=== PATIENT | female | born 1965 | race Caucasian/White ===

== ENCOUNTER 2023-08-30 21:23 | Outpatient (REF) | payer BC, SELFPAY ==
[2023-09-02 13:08] LABS: Age Gdln ACOG Testing Note (.); HPV Aptima Negative (Negative); IGP, Aptima HPV, rfx 16/18,45 Note (.)
== END 2023-08-30 21:24 | disposition home or self-care (01) ==
LOC: LAB 21:23
PROVIDERS: PCP Internal Medicine; Visit Provider Obstetrics & Gynecology
DX: Z01.419 Encounter for gynecological examination (general) (routine) without abnormal findings (principal)
CPT/HCPCS: 87624; G0145

== ENCOUNTER 2024-09-04 22:00 | Outpatient (REF) | payer BC, SELFPAY ==
--- OUTSIDE RECORDS SUMMARY | 2024-09-04 22:05 | XMS_ITS | CCD ---
Author Organization [facility] Care Team Providers Care Senior Solutions Architect Name Role Phone BAGGOTT, JUAN LUIS QUINONEZ Unavailable Unavailable BAGGOTT, JUAN LUIS QUINONEZ Unavailable Unavailable BAGGOTT, JUAN LUIS QUINONEZ Unavailable Unavailable BAGGOTT, JUAN LUIS QUINONEZ Unavailable Unavailable BAGGOTT, JUAN LUIS QUINONEZ Unavailable Unavailable BAGGOTT, JUAN LUIS QUINONEZ Unavailable Unavailable BAGGOTT, JUAN LUIS QUINONEZ Unavailable Unavailable BAGGOTT, JUAN LUIS QUINONEZ Unavailable Unavailable BUNYARD, IBETH P Unavailable Unavailable BAGGOTT, JUAN LUIS QUINONEZ Unavailable Unavailable BUNYARD, IBETH P Unavailable Unavailable BAGGOTT, JUAN LUIS QUINONEZ Unavailable Unavailable BAGGOTT, JUAN LUIS QUINONEZ Unavailable Unavailable BAGGOTT, JUAN LUIS QUINONEZ Unavailable Unavailable EL DRE, KJ M Unavailable Unavailable EL DRE, KJ M Unavailable Unavailable BAGGOTT, JUAN LUIS QUINONEZ Unavailable Unavailable VALERIY FOX Admitting Unavailable VALERIY FOX Attending Unavailable MINA, DR JHON Harden Primary Care Unavailable KUMAR II, GRIFFIN Consulting Unavailable VALERIY FOX Consulting Unavailable FERNANDO RODRIGUES Unavailable ILDEFONSO Crowe, DR ROMERO Admitting Unavailable ILDEFONSO Crowe, DR ROMERO Attending Unavailable HIESTTREVOR, DR JHON Harden Primary Care Unavailable ILDEFONSO Crowe, DR ROMERO Consulting Unavailable Jhon Enriquez MD Primary Care Provider Jhon Enriquez MD Primary Care Provider [phone] JHON ENRIQUEZ Attending Unavailable JHON ENRIQUEZ Referring Unavailable JHON ENRIQUEZ Primary Care Unavailable JHON ENRIQUEZ Attending Unavailable JHON ENRIQUEZ Referring Unavailable JHON ENRIQUEZ Primary Care Unavailable JHON ENRIQUEZ Attending Unavailable JHON ENRIQUEZ Referring Unavailable JHON ENRIQUEZ Primary Care Unavailable JHON ENRIQUEZ Attending Unavailable HIESTAND, RADHA Referring Unavailable JHON ENRIQUEZ Primary Care Unavailable CADEN FREGOSO Referring Unavailable MINA, JHON Harden Primary Care Unavailable STEFANIA VALENCIA Referring Unavailable EKATERINAESTTREVOR, JHON Harden Primary Care Unavailable HIESTTREVOR, JHON Harden Referring Unavailable CATHERINETREVOR, JHON Harden Primary Care Unavailable CATHERINETREVOR, JHON Harden Referring Unavailable MINA, JHON Harden Primary Care Unavailable SIMONA MOON Attending Unavailable IBETH FERNANDEZ Referring Unavailable BIGG CHAPA Attending Unavailable IBETH FERNANDEZ Referring Unavailable IBETH FERNANDEZ Attending Unavailable IBETH FERNANDEZ Referring Unavailable IBETH FERNANDEZ Attending Unavailable SIMONA MOON Attending Unavailable IBETH FERNANDEZ Referring Unavailable IBETH FERNANDEZ Referring Unavailable JR. PELAEZ GEORGE C Attending UnavailIBETH Rodriguez Attending Unavailable JIM, IBETH Harden Attending Unavailable BIGG CHAPA Attending Unavailable IBETH FERNANDEZ Referring Unavailable SIMONA MOON Attending Unavailable IBETH FERNANDEZ Referring Unavailable SIMONA MOON Attending Unavailable IBETH FERNANDEZ Referring Unavailable SIMONA MOON Attending Unavailable IBETH FERNANDEZ Referring Unavailable Medications Current Medications Medication Drug Class(es) Dates Sig (Normalized) Sig (Original) acetaminophen 21.7 mg/ml / HYDROcodone bitartrate 0.5 mg/ml oral solution (15 sources) Opioid Agonist Start: 12-08-2023 End: 09-01-2024 HYDROcodone-acetam inophen (Hycet) 7.5-325 MG/15ML solution 12/08/2023 09/01/2024 Discontinued (Med list cleanup) acetaminophen 325 mg / oxyCODONE hydrochloride 5 mg oral tablet (7 sources) Opioid Agonist Start: 07-20-2024 End: 08-09-2024 take 1 tablet by mouth every six hours for pain oxyCODONE-acetamin ophen (Percocet) 5-325 MG tablet Indications: Internal derangement of right shoulder Take 1 tablet by mouth every 6 (six) hours if needed for moderate pain for up to 5 days 20 tablet 08/04/2024 08/09/2024 Active allopurinol 100 mg oral tablet (20 sources) Xanthine Oxidase Inhibitor Start: 05-25-2023 End: 05-24-2024 take 2 tablets by mouth once daily in the morning allopurinoL (ZYLOPRIM) 100 mg tablet take 2 tablets by mouth every morning 180 tablet 3 05/24/2024 Active cephalexin 500 mg oral capsule (1 source) Cephalosporin Antibacterial Start: 06-02-2024 End: 06-07-2024 take 1 capsule by mouth three times daily CEPHalexin (KEFLEX) 500 mg capsule Take 1 capsule (500 mg total) by mouth 3 (three) times a day for 5 days. 15 capsule 06/02/2024 06/07/2024 Active citalopram 20 mg oral tablet (20 sources) Serotonin Reuptake Inhibitor Start: 03-01-2024 take 1 tablet by mouth once daily citalopram (CeleXA) 20 MG tablet Indications: Anxiety and depression (CMS/HCC) TAKE 1 TABLET BY MOUTH EVERY DAY 90 tablet 2 03/01/2024 Active Start: 08-30-2023 take 1 tablet by celina th once daily citalopram (CeleXA) 20 MG tablet Indications: Anxiety and depression (CMS/HCC) TAKE 1 TABLET BY MOUTH EVERY DAY 30 tablet 6 08/30/2023 Active take 1 tablet by celina th once daily citalopram (CeleXA) 40 mg tablet Take 1 tablet (40 mg total) by mouth nightly. Active clobetasol propionate 0.5 mg/ml topical cream (5 sources) Corticosteroid Start: 09-10-2023 clobetasoL (TEMOVATE) 0.05 % cream Indications: Allergic contact dermatitis due to metals Apply 1 Application topically in the morning and 1 Application before bedtime. 30 g 09/10/2023 Active 24 hr ferrous sulfate 142 mg extended release oral tablet (18 sources) Start: 01-17-2024 Ferrous Sulfate ER (Slow Fe) 45 MG tablet controlled-release 01/17/2024 Active hydrocortisone 10 mg/ml rectal cream (10 sources) Corticosteroid Start: 03-24-2022 End: 07-14-2024 hydrocortisone 1 % cream APPLY SPARINGLY TO AFFECTED AREA TWICE A DAY 03/24/2022 07/14/2024 Discontinued (Therapy completed) levothyroxine sodium 0.112 mg oral tablet (20 sources) l-Thyroxine Start: 08-01-2024 take 1 tablet by mouth in the morning levothyroxine (SYNTHROID, LEVOTHROID) 112 MCG tablet Take 1 tablet (112 mcg total) by mouth in the morning. 90 tablet 3 08/01/2024 Active Start: 07-17-2024 End: 08-01-2024 take 1 tablet by mouth in the morning levothyroxine (SYNTHROID, LEVOTHROID) 112 MCG tablet Take 1 tablet (112 mcg total) by mouth in the morning. 30 tablet 07/17/2024 08/01/2024 Discontinued Start: 02-01-2023 End: 06-22-2024 take 1 tablet by mouth in the morning levothyroxine (SYNTHROID, LEVOTHROID) 112 MCG tablet TAKE 1 TABLET (112 MCG TOTAL) BY MOUTH IN THE MORNING 30 tablet 06/22/2024 Active 24 hr metFORMIN hydrochloride 500 mg extended release oral tablet (20 sources) Biguanide Start: 06-10-2023 End: 09-04-2024 take 1 tablet by mouth every twenty-four hours at mealtime metFORMIN XR (Glucophage-XR) 500 MG 24 hr tablet Take 500 mg by mouth in the evening. Take with meals 10/28/2023 09/04/2024 Discontinued (Other) End: 04-26-2024 metFORMIN (Glucophage) 500 M G/5ML solution oral solution 04/26/2024 Discontinued (Therapy completed) omeprazole 20 mg delayed release oral capsule (18 sources) Proton Pump Inhibitor Start: 12-08-2023 End: 09-04-2024 take 1 capsule by mouth before mealtime omeprazole (PriLOSEC) [address] capsule Take 20 mg by mouth in the morning. Take before meals. 12/08/2023 09/04/2024 Discontinued (Other) thiamine 100 mg oral tablet (18 sources) Start: 11-01-2023 End: 09-04-2024 take 1 tablet by mouth once daily thiamine (,Vitamin B-1,) 100 MG tablet Take 100 mg by mouth Daily 11/01/2023 09/04/2024 Discontinued (Other) Completed/Discontinued Medications Medication Drug Class(es) Dates Sig (Normalized) Sig (Original) cholecalciferol 0.125 mg oral capsule (4 sources) Vitamin D Start: 01-10-2024 End: 04-26-2024 take 1 capsule by mouth every week cholecalciferol (Vitamin D-3) 125 MCG (5000 UT) capsule Indications: Osteoporosis, unspecified osteoporosis type, unspecified pathological fracture presence (CMS/HCC) TAKE 1 CAPSULE (125 MCG) BY MOUTH 1 (ONE) TIME PER WEEK. 12 capsule 1 01/10/2024 04/26/2024 Discontinued (Therapy completed) Start: 07-21-2023 take 1 capsule by mo uth every week cholecalciferol (Vitamin D-3) 125 MCG (5000 UT) capsule Indications: Osteoporosis, unspecified osteoporosis type, unspecified pathological fracture presence (CMS/HCC) TAKE 1 CAPSULE (125 MCG) BY MOUTH 1 (ONE) TIME PER WEEK. 12 capsule 1 07/21/2023 Active empagliflozin 10 mg oral tablet (3 sources) Sodium-Glucose Cotransporter 2 Inhibitor Start: 05-25-2023 End: 09-10-2023 take 1 tablet by mouth in the morning JARDIANCE 10 mg tablet tablet Indications: Type 2 diabetes mellitus without complication, without long-term current use of insulin (CMS-HCC) TAKE 1 TABLET (10 MG TOTAL) BY MOUTH IN THE MORNING 90 tablet 1 08/17/2023 09/10/2023 Discontinued (Therapy completed) ergocalciferol 1.25 mg oral capsule (4 sources) Provitamin D2 Compound End: 04-26-2024 take 1 capsule by mouth every week ergocalciferol (Vitamin D2) 1.25 MG (42444 UT) capsule TAKE 1 CAPSULE BY MOUTH ONE TIME PER WEEK 04/26/2024 Discontinued (Therapy completed) 1 ml methylPREDNISolone acetate 40 mg/ml injection (4 sources) Corticosteroid Start: 04-26-2024 End: 04-26-2024 methylPREDNISolone acetate (DEPO-Medrol) injection 40 mg Start: 04-26-2024 End: 04-26-2024 40 mg, Intra-articular, Once PRN Procedure, Starting on Wed04/26/24 at 1538, For 1 dose Problems Active Problems Problem Classification Problem Date Documented Da te Episodic/Chronic Diabetes mellitus without complication (9 sources) Type 2 diabetes mellitus without complication; Translations: [Type 2 diabetes mellitus without complications] Onset: 07-13-2022 08-17-2023 Chronic Essential hypertension (7 sources) Hypertensive disorder; Translations: [Essential (primary) hypertension] 11-29-2020 Chronic Gout and other crystal arthropathies (1 source) Idiopathic chronic gout, unspecified site, without tophus (tophi); Translations: [Idiopathic chronic gout, unspecified site, without tophus (tophi)] Onset: 07-21-2024 Chronic Immunizations and screening for infectious disease (1 source) Encounter for screening for human papillomavirus (HPV); Translations: [ENC SCREENING HUMAN PAPILLOMAVIRUS] Onset: 08-26-2022 Episodic Nutritional deficiencies (7 sources) Vitamin D deficiency; Translations: [Vitamin D deficiency, unspecified] Onset: 07-13-2022 07-13-2022 Chronic Other and unspecified benign neoplasm (4 sources) Personal history of colonic polyps; Translations: [PERSONAL HISTORY OF COLONIC POLYPS] Onset: 09-18-2022 Episodic Other gastrointestinal disorders (1 source) Intestinal malabsorption, unspecified; Translations: [Intestinal malabsorption, unspecified] Onset: 02-08-2024 Chronic Other non-traumatic joint disorders (7 sources) Derangement of right shoulder joint; Translations: [Other specific joint derangements of right shoulder, not elsewhere classified] 05-15-2024 Chronic Other non-traumatic joint disorders (20 sources) Pain in right shoulder; Translations: [Pain in joint, shoulder region] Onset: 08-08-2024 04-26-2024 Episodic Other non-traumatic joint disorders (20 sources) Stiffness of right shoulder; Translations: [Stiffness of right shoulder, not elsewhere classified] Onset: 08-08-2024 08-08-2024 Episodic Other nutritional; endocrine; and metabolic disorders (2 sources) Morbid (severe) obesity due to excess calories; Translations: [Morbid (severe) obesity due to excess calories] Onset: 11-25-2017 Chronic Other nutritional; endocrine; and metabolic disorders (1 source) Body mass index (BMI) 45.0-49.9, adult; Translations: [Body mass index (BMI) 45.0-49.9, adult] Onset: 11-29-2020 Chronic Other screening for suspected conditions (not mental disorders or infectious disease) (7 sources) Encounter for screening for malignant neoplasm of cervix; Translations: [Encounter for screening mammogram for malignant neoplasm of breast] Onset: 08-25-2022 Episodic Residual codes; unclassified (20 sources) History of arthroscopic procedure on shoulder; Translations: [Other specified postprocedural states] Onset: 08-08-2024 08-04-2024 Episodic Residual codes; unclassified (2 sources) Postmenopausal state; Translations: [Asymptomatic menopausal state] 09-04-2024 Episodic Screening and history of mental health and substance abuse codes (1 source) Personal history of nicotine dependence; Translations: [PERSONAL HISTORY OF NICOTINE DEPEND] Onset: 09-24-2022 Episodic Thyroid disorders (8 sources) Hypothyroidism; Translations: [Hypothyroidism, unspecified] Onset: 02-08-2024 11-29-2020 Chronic Unclassified (1 source) Unknown / UNK(Unknown) Onset: 09-09-2017 Unclassified (1 source) Annual Exam Onset: 07-17-2024 Unclassified (1 source) Pre-op Exam Onset: 09-10-2023 Urinary tract infections (1 source) Acute cystitis; Translations: [Acute cystitis without hematuria] 06-02-2024 Episodic Past or Other Problems Problem Classification Problem Date Documented Da te Episodic/Chronic Abdominal hernia (7 sources) Hernia of anterior abdominal wall; Translations: [Ventral hernia without obstruction or gangrene] Onset: 08-13-2017 08-13-2017 Episodic Abdominal pain (8 sources) Right upper quadrant pain; Translations: [Abdominal pain] Onset: 08-13-2017 08-13-2017 Episodic Allergic reactions (2 sources) Allergic contact dermatitis due to metals; Translations: [Dermatitis due to metals] Onset: 09-10-2023 09-10-2023 Episodic Genitourinary symptoms and ill-defined conditions (1 source) Dysuria; Translations: [Dysuria] Onset: 01-21-2024 Episodic Mood disorders (7 sources) Mood disorders Onset: 11-27-2020 Resolved: 07-17-2024 11-27-2020 Other gastrointestinal disorders (1 source) Bariatric surgery status; Translations: [Bariatric surgery status] Onset: 02-08-2024 Episodic Other nutritional; endocrine; and metabolic disorders (8 sources) Severe obesity; Translations: [Morbid (severe) obesity due to excess calories] Resolved: 07-17-2024 11-29-2020 Chronic Peritonitis and intestinal abscess (1 source) Sclerosing mesenteritis; 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] Onset: 10-21-2017 Episodic Residual codes; unclassified (7 sources) Sleep apnea; Translations: [Sleep apnea, unspecified] Resolved: 07-17-2024 11-29-2020 Chronic Results Test Name Value Interpretation Reference Range Facility HGB A1C (GLYCO-HGB)on 2023 Glucose [Mass/Vol] 105 mg/dL Normal [facility] Comment on above: Performed By: #### 3 5365-6, 2776-1, 2283-8, CMP, 94716-3, 2131-9, FEPR, 2276-4, CBCA #### [facility] ([id number]) [address], [address] [place] [address] #### [id number] #### [facility] ([id number]) [address] [place] [address]39 HbA1c (Bld) [Mass fraction] 5.3 % Normal 4.4-5.6 [facility] Comment on above: Result Comment: NOTE ADA Guidelines Result HgbA1c Normal : less than 5.7 % Prediabetes : 5.7 % to 6.4 % Diabetes : > 6.4 % Use with caution in patients with abnormal hemoglobin variants as the half-life of red blood cells and in vivo glycation rates are affected. Performed By: #### 3 5365-6, 2776-, 2284-03, CMP, 40447-7, 9, FEPR, 2276-4, CBCA #### [facility] ([id number]) [address], [address] [place] [address] #### 84741-9 #### [facility] ([id number]) [address] [place] [address] 14373 Lipid 1996 panelon 4 Cholesterol [Mass/Vol] 149 mg/dL Low 150-200 [facility] Comment on above: Performed By: #### 3 5365-6, 277-1, 2283-8, CMP, 01860-2, 2131-9, FEPR, 2276-4, CBCA #### [facility] ([id number]) [address], [address] [place] [address] #### 14961-3 #### [facility] ([id number]) [address] [place] [address] Cholesterol in HDL [Mass/Vol] 44 mg/dL Normal >39 [facility] Comment on above: Result Comment: HDL <40 mg/dL - High Risk HDL > or = 40mg/dL- Desirable HDL >60 mg/dL - Negative Risk Performed By: #### 3 5365-6, 2777-1, 2284-8, CMP, 83846-6, 2131-9, FEPR, 2276-4, CBCA #### [facility] ([id number]) [address], [address] [place] [address] #### 58862-6 #### [facility] ([id number]) [address] [place] [address] Cholesterol in LDL [Mass/Vol] 89 mg/dL Normal <130 [facility] Comment on above: Result Comment: LDL <100 mg/dL - Desirable LDL >160 mg/dL - High Risk Performed By: #### 3 5365-6, 2777-1, 2284-8, CMP, 79469-5, 2131-9, FEPR, 2276-4, CBCA #### [facility] ([id number]) [address], [address] [place] [address] #### 48179-3 #### [facility] ([id number]) [address] [place] [address] Cholesterol in VLDL [Mass/Vol] 16 mg/dL Normal 0-30 [facility] Comment on above: Performed By: #### 3 5365-6, 2777-1, 2284-8, CMP, 10214-5, 2131-9, FEPR, 2276-4, CBCA #### [facility] ([id number]) [address], [address] [place] [address] #### 53481-7 #### [facility] ([id number]) [address] [place] [address] 43071 CHOLESTEROL:HDL 3.4 Normal 1.0-5.0 [facility] Comment on above: Performed By: #### 3 5365-6, 2777-1, 2284-8, CMP, 29464-2, 2131-9, FEPR, 2276-4, CBCA #### [facility] ([id number]) [address], [address] [place] [address] #### 67611-7 #### [facility] ([id number]) [address] [place] [address] 19973 Triglyceride [Mass/Vol] 81 mg/dL Normal 27-150 [facility] Comment on above: Performed By: #### 3 5365-6, 2777-1, 2284-8, CMP, 64320-3, 2131-9, FEPR, 2276-4, CBCA #### [facility] ([id number]) [address], [address] [place] [address] #### 80837-9 #### [facility] ([id number]) [address] [place] [address]3697 THYROID PROFILEon 07-21-2024 Free T4 [Mass/Vol] 1.27 ng/dL Normal 0.61-1.60 [facility] Comment on above: Result Comment: NEW REFERENCE RANGE FOR PEDIATRIC PATIENTS Performed By: #### 3 5365-6, 2777-1, 2284-8, CMP, 16985-3, 213-9, FEPR, 2276-4, CBCA #### [facility] ([id number]) [address], [address] [place] [address] #### 29186-2 #### [facility] ([id number]) [address] [place] [address] TSH 2.18 uIU/mL Normal 0.49-4.67 [facility] Comment on above: Result Comment: NEW REFERENCE RANGE FOR PEDIATRIC PATIENTS Performed By: #### 3 5365-6, 2777-1, 2284-8, CMP, 45829-4, 2131-9, FEPR, 2276-4, CBCA #### [facility] ([id number]) [address], [address] [place] [address] #### 56236-4 #### [facility] ([id number]) [address] [place] [address] 11955 URIC ACIDon 07-21-2024 Urate [Mass/Vol] 5.2 mg/dL Normal 2.6-7.2 [facility] Comment on above: Performed By: #### 3 5365-6, 2777-1, 2284-8, CMP, 81516-0, 9, FEPR, 2276-4, CBCA #### [facility] ([id number]) [address] [facility] [address] [place] [address] #### 44926-6 #### [facility] ([id number]) [address] [place] [address] POCT urinalysis dipstick onl yon 06-02-2024 External Poct Urine Bilirubin Negative [facility] External Poct Urine Blood Large [facility] External Poct Urine Glucose Negative [facility] External Poct Urine Ketones Trace [facility] External Poct Urine Leukocyte Esterase Large [facility] External Poct Urine Nitrite Positive [facility] External Poct Urine Ph 5 [facility] External Poct Urine Protein 1+ [facility] External Poct Urine Specific Arnold 1.015 [facility] External Poct Urine Urobilinogen 0.2 [facility] Interpretation and review of laboratory results Abnormal [facility] CBC AND AUTO DIFFon 05-26-20 24 ABSOLUTE BASOPHIL 0.0 X10E9/L Normal 0.0-0.2 [facility] Comment on above: Performed By: #### 3 5365-6, 2777-1, 2284-8, CMP, 65935-6, 2132-9, FEPR, 2276-4, CBCA #### [facility] ([id number]) [address] [address], [address] [place] [address] #### 84097-9 #### [facility] ([id number]) [address] [place] [address] 97882 ABSOLUTE NEUTROPHIL 5.4 X10E9/L Normal 1.5-6.6 [facility] Comment on above: Performed By: #### 3 5365-6, 2777-1, 2284-8, CMP, 01567-5, 2131-9, FEPR, 2276-4, CBCA #### [facility] ([id number]) [address], [address] [place] [address] #### 52125-6 #### [facility] ([id number]) [address] [place] [address] 65513 Basophils/100 WBC (Bld) 0.2 % Normal [facility] Comment on above: Performed By: #### 3 5365-6, 2777-1, 2284-8, CMP, 50636-2, 2131-9, FEPR, 2276-4, CBCA #### [facility] ([id number]) [address], [address] [place] [address] #### 07555-7 #### [facility] ([id number]) [address] [place] [address] 16895 Eosinophils (Bld) [#/Vol] 0.1 10*3/uL Normal 0.0-0.4 [facility] Comment on above: Performed By: #### 3 5365-6, 7-1, 4-8, CMP, 14984-9, 2131-9, FEPR, 2276-4, CBCA #### [facility] ([id number]) [address] [place] [address], [address] [place] [address] #### 58532-1 #### [facility] ([id number]) [address] [place] [address] 54371 Eosinophils/100 WBC (Bld) 1.9 % Normal [facility] Comment on above: Performed By: #### 3 5365-6, 7-1, 2283-8, CMP, 53281-6, 9, FEPR, 6-4, CBCA #### [facility] ([id number]) [address] [place] [address], [address] [address] #### 34518-1 #### [facility] ([id number]) [address] [place] [address] 69642 Erythrocyte distribution width (RBC) [Ratio] 16.4 % High 11.5-15.0 [facility] Comment on above: Performed By: #### 3 5365-6, 2777-1, 2283-8, CMP, 94866-7, 9, FEPR, 2276-4, CBCA #### [facility] ([id number]) [address] [place] [address], [facility] [address] [place] [address] #### 60362-0 #### [facility] ([id number]) [address] [place] [address] 62101 Hematocrit (Bld) [Volume fraction] 40.2 % Normal 35-47 [facility] Comment on above: Performed By: #### 3 5365-6, 2777-1, 2284-8, CMP, 52760-5, 2131-9, FEPR, 2276-4, CBCA #### [facility] ([id number]) [address] [facility], [address] [place] [address] #### 88059-8 #### [facility] ([id number]) [address] [place] [address] 00046 Hemoglobin (Bld) [Mass/Vol] 13.1 g/dL Normal 11.7-15.5 [facility] Comment on above: Performed By: #### 3 5365-6, 7-1, 2283-8, CMP, 58223-2, 2131-9, FEPR, 2276-4, CBCA #### [facility] ([id number]) [address] [facility], [address] [place] [address] #### 23443-8 #### [facility] ([id number]) [address] [place] [address] 11122 Lymphocytes (Bld) [#/Vol] 1.6 10*3/uL Normal 1.0-3.5 [facility] Comment on above: Performed By: #### 3 5365-6, 7-1, 4-8, CMP, 08213-0, 2131-9, FEPR, 2276-4, CBCA #### [facility] ([id number]) [address] [place] [address], [address] [place] [address] #### 29592-9 #### [facility] ([id number]) [address] [place] [address] 16268 Lymphocytes/100 WBC (Bld) 21.1 % Normal [facility] Comment on above: Performed By: #### 3 5365-6, 2777-1, 2284-8, CMP, 39998-0, 2131-9, FEPR, 2276-4, CBCA #### [facility] ([id number]) [address] [place] [address] #### 13271-5 #### [facility] ([id number]) [address] [place] [address] 68416 MCH (RBC) [Entitic mass] 29.7 pg Normal 27-34 [facility] Comment on above: Performed By: #### 3 5365-6, 2777-1, 228-8, CMP, 61298-5, 2131-9, FEPR, 2276-4, CBCA #### [facility] ([id number]) [address], [address] [place] [address] #### 93354-2 #### [facility] ([id number]) [address] [place] [address] 63723 MCHC (RBC) [Mass/Vol] 32.5 g/dL Normal 32-36 [facility] Comment on above: Performed By: #### 3 5365-6, 2777-1, 2283-8, CMP, 94020-2, 9, FEPR, 2276-4, CBCA #### [facility] ([id number]) [address] [facility] [address], [address] [place] [address] #### 57619-7 #### [facility] ([id number]) [address] [place] [address] 35378 MCV (RBC) [Entitic vol] 91 fL Normal 80-100 [facility] Comment on above: Performed By: #### 3 5365-6, 2777-1, 2284-8, CMP, 86330-6, 9, FEPR, 6-4, CBCA #### [facility] ([id number]) [address], [address] [place] [address] #### 75692-5 #### [facility] ([id number]) [address] [place] [address] 97175 Monocytes (Bld) [#/Vol] 0.6 10*3/uL Normal 0-0.9 [facility] Comment on above: Performed By: #### 3 5365-6, 7-1, 2284-8, CMP, 08051-9, 2132-9, FEPR, 2276-4, CBCA #### [facility] ([id number]) [address] [facility], [address] [place] [address] #### 32479-8 #### [facility] ([id number]) [address] [place] [address] 30086 Monocytes/100 WBC (Bld) 7.2 % Normal [facility] Comment on above: Performed By: #### 3 5365-6, 277-1, 2283-8, CMP, 84167-6, 2131-9, FEPR, 2276-4, CBCA #### [facility] ([id number]) [address] [facility], [address] [place] [address] #### 37524-9 #### [facility] ([id number]) [address] [place] [address] 51522 Neutrophils/100 WBC (Bld) 69.6 % Normal [facility] Comment on above: Performed By: #### 3 5365-6, 277-1, 2283-8, CMP, 55600-0, 2131-9, FEPR, 2276-4, CBCA #### [facility] ([id number]) [address] [place] [address], [address] [place] [address] #### 64852-9 #### [facility] ([id number]) [address] [place] [address] 19558 Platelet mean volume (Bld) [Entitic vol] 8.3 fL Normal 7-12 [facility] Comment on above: Performed By: #### 3 5365-6, 2777-1, 2284-8, CMP, 43729-0, 2132-9, FEPR, 2276-4, CBCA #### [facility] ([id number]) [address], [address] [place] [address] #### 65254-9 #### [facility] ([id number]) [address] [place] [address] 13445 Platelets (Bld) [#/Vol] 205 10*3/uL Normal 150-450 [facility] Comment on above: Performed By: #### 3 5365-6, 2777-1, 2284-8, CMP, 08675-6, 2-9, FEPR, 2276-4, CBCA #### [facility] ([id number]) [address] [facility], [address] [place] [address] #### 51264-0 #### [facility] ([id number]) [address] [place] [address] 59821 RBC COUNT 4.40 X10E12/L Normal 3.80-5.20 [facility] Comment on above: Performed By: #### 3 5365-6, 2777-1, 2284-8, CMP, 43131-9, 2132-9, FEPR, 2276-4, CBCA #### [facility] ([id number]) [address] [facility], [address] [place] [address] #### 11917-7 #### [facility] ([id number]) [address] [place] [address] 43785 WBC (Bld) [#/Vol] 7.7 10*3/uL Normal 4.0-11.0 [facility] Comment on above: Performed By: #### 3 5365-6, 2777-1, 2284-8, CMP, 70543-1, 2132-9, FEPR, 2276-4, CBCA #### [facility] ([id number]) [address] [facility], [address] [place] [address] #### 35794-4 #### [facility] ([id number]) [address] [place] [address] 31540 COMPREHENSIVE METABOLIC PANE [facility] 05-26-2024 Albumin [Mass/Vol] 3.6 g/dL Normal 3.2-5.3 [facility] Comment on above: Performed By: #### 3 5365-6, 2777-1, 2284-8, CMP, 77480-6, 2-9, FEPR, 2276-4, CBCA #### [facility] ([id number]) [address] [facility], [address] [place] [address] #### 51946-0 #### [facility] ([id number]) [address] [place] [address] 60565 ALP [Catalytic activity/Vol] 75 U/L Normal 39-130 [facility] Comment on above: Performed By: #### 3 5365-6, 2777-1, 2284-8, CMP, 95039-3, 2-9, FEPR, 2276-4, CBCA #### [facility] ([id number]) [address] [facility], [address] [place] [address] #### 82946-7 #### [facility] ([id number]) [address] [place] [address] 99088 ALT [Catalytic activity/Vol] 17 U/L Normal 0-31 [facility] Comment on above: Performed By: #### 3 5365-6, 2777-1, 2284-8, CMP, 90513-1, 2132-9, FEPR, 2276-4, CBCA #### [facility] ([id number]) [address] [facility], [address] [place] [address] #### 03795-2 #### [facility] ([id number]) [address] [place] [address] 86966 Anion gap [Moles/Vol] 12 mmol/L Normal 5-15 [facility] Comment on above: Performed By: #### 3 5365-6, 7-1, 2284-8, CMP, 23633-9, 2131-9, FEPR, 2276-4, CBCA #### [facility] ([id number]) [address] [place] [address], [address] [place] [address] #### 47024-1 #### [facility] ([id number]) [address] [place] [address] 84199 AST [Catalytic activity/Vol] 22 U/L Normal 0-41 [facility] Comment on above: Performed By: #### 3 5365-6, 7-1, 2283-8, CMP, 82757-2, 2131-9, FEPR, 2276-4, CBCA #### [facility] ([id number]) [address] [place] [address], [address] [place] [address] #### 93642-8 #### [facility] ([id number]) [address] [place] [address] 15632 Bilirubin [Mass/Vol] 0.4 mg/dL Normal 0.3-1.2 [facility] Comment on above: Performed By: #### 3 5365-6, 2777-1, 2283-8, CMP, 76388-3, 2131-9, FEPR, 2276-4, CBCA #### [facility] ([id number]) [address] [place] [address], [address] [place] [address] #### 88866-2 #### [facility] ([id number]) [address] [place] [address] 17757 Calcium [Mass/Vol] 9.3 mg/dL Normal 8.5-10.5 [facility] Comment on above: Performed By: #### 3 5365-6, 2777-1, 2284-8, CMP, 99395-8, 2131-9, FEPR, 2276-4, CBCA #### [facility] ([id number]) [address], [address] [place] [address] #### 75601-4 #### [facility] ([id number]) [address] [place] [address] 53718 Chloride [Moles/Vol] 104 mmol/L Normal 98-109 [facility] Comment on above: Performed By: #### 3 5365-6, 7-1, 2283-8, CMP, 08723-0, 9, FEPR, 2276-4, CBCA #### [facility] ([id number]) [address], [address] [place] [address] #### 25118-6 #### [facility] ([id number]) [address] [place] [address] 92883 CO2 [Moles/Vol] 26 mmol/L Normal 22-32 [facility] Comment on above: Performed By: #### 3 5365-6, 7-1, 2283-8, CMP, 75651-2, 9, FEPR, 2276-4, CBCA #### [facility] ([id number]) [address], [address] [place] [address] #### 39460-5 #### [facility] ([id number]) [address] [place] [address] 07633 Creatinine [Mass/Vol] 0.65 mg/dL Normal 0.40-1.00 [facility] Comment on above: Result Comment: METH OD TRACEABLE TO IDMS STANDARD Performed By: #### 3 5365-6, 2777-1, 2284-8, CMP, 71790-8, 2131-9, FEPR, 2276-4, CBCA #### [facility] ([id number]) [address], [address] [place] [address] #### 40153-2 #### [facility] ([id number]) [address] [place] [address] 03075 eGFR (CKD-EPI) NON-RACE DEPENDENT >90 Normal >59 [facility] Comment on above: Result Comment: Reported eGFR is based on the CKD-EPI 2020 equation that does not use a race coefficient. Performed By: #### 3 5365-6, 2777-1, 4-8, CMP, 93942-3, 2131-9, FEPR, 2276-4, CBCA #### [facility] ([id number]) [address] [facility], [address] [place] [address] #### 59945-6 #### [facility] ([id number]) [address] [place] [address] 43465 Glucose [Mass/Vol] 86 mg/dL Normal 65-99 [facility] Comment on above: Performed By: #### 3 5365-6, 2777-1, 2283-8, CMP, 56318-7, 9, FEPR, 2276-4, CBCA #### [facility] ([id number]) [address] [facility] [facility] [address] [place] [address] #### 59778-1 #### [facility] ([id number]) [address] [place] [address] 94911 Potassium [Moles/Vol] 3.7 mmol/L Normal 3.5-5.0 [facility] Comment on above: Performed By: #### 3 5365-6, 2777-1, 2284-8, CMP, 75899-3, 9, FEPR, 2276-4, CBCA #### [facility] ([id number]) [address] [facility], [address] [place] [address] #### 78987-0 #### [facility] ([id number]) [address] [place] [address] 03214 Protein [Mass/Vol] 6.3 g/dL Normal 6.0-8.0 [facility] Comment on above: Performed By: #### 3 5365-6, 2777-1, 2284-8, CMP, 93329-5, 2132-9, FEPR, 2276-4, CBCA #### [facility] ([id number]) [address] [place] [address], [address] [place] [address] #### 23426-2 #### [facility] ([id number]) [address] [place] [address] 97462 Sodium [Moles/Vol] 142 mmol/L Normal 134-146 [facility] Comment on above: Performed By: #### 3 5365-6, 2777-1, 2283-8, CMP, 64504-2, 2-9, FEPR, 2276-4, CBCA #### [facility] ([id number]) [address] [place] [address], [address] [place] [address] #### 31411-5 #### [facility] ([id number]) [address] [place] [address] 19381 Urea nitrogen [Mass/Vol] 12 mg/dL Normal 5-23 [facility] Comment on above: Performed By: #### 3 5365-6, 2777-1, 2284-8, CMP, 42442-1, 2132-9, FEPR, 2276-4, CBCA #### [facility] ([id number]) [address] [place] [address], [address] [place] [address] #### 67369-9 #### [facility] ([id number]) [address] [place] [address] 86660 FERRITINon 05-26-2024 Ferritin [Mass/Vol] 118 ng/mL Normal 11-307 [facility] Comment on above: Performed By: #### 3 5365-6, 2777-1, 2284-8, CMP, 43140-6, 2131-9, FEPR, 2276-4, CBCA #### [facility] ([id number]) [address] [place] [address], [address] [place] [address] #### 91964-3 #### [facility] ([id number]) [address] [place] [address] 74613 Folate [Mass/Vol]on 05-26-20 FOLIC ACID >25.0 Normal >5.8 [facility] Comment on above: Result Comment: NEW REFERENCE RANGE Performed By: #### 3 5365-6, 2777-1, 4-8, CMP, 62999-6, 2131-9, FEPR, 2276-4, CBCA #### [facility] ([id number]) [address] [place] [address], [address] [place] [address] #### 61134-5 #### [facility] ([id number]) [address] [place] [address] 72756 IRON PROFILEon 05-26-2024 Iron [Mass/Vol] 53 ug/dL Normal 50-170 [facility] Comment on above: Performed By: #### 3 5365-6, 2777-1, 2284-8, CMP, 86757-2, 2131-9, FEPR, 2276-4, CBCA #### [facility] ([id number]) [address] [place] [address], [address] [place] [address] #### 75019-2 #### [facility] ([id number]) [address] [place] [address] 07213 IRON BINDING 252 ug/dL Normal 250-425 [facility] Comment on above: Performed By: #### 3 5365-6, 2777-1, 2284-8, CMP, 94979-7, 2132-9, FEPR, 2276-4, CBCA #### [facility] ([id number]) [address] [facility], [address] [place] [address] #### 14760-0 #### [facility] ([id number]) [address] [place] [address] 57804 IRON SATURATION 21 % SATURATION Normal 15-50 [facility] Comment on above: Performed By: #### 3 5365-6, 2777-1, 2283-8, CMP, , 2132-04, FEPR, 2276-4, CBCA #### [facility] ([id number]) [address] [facility], [address] [place] [address] #### 57322-1 #### [facility] ([id number]) [address] [place] [address] 68516 MAGNESIUMon 05-26-2024 Magnesium [Mass/Vol] 1.8 mg/dL Normal 1.8-2.6 [facility] Comment on above: Performed By: #### 3 5365-6, 277-1, 2283-8, CMP, , 2132-04, FEPR, 2276-4, CBCA #### [facility] ([id number]) [address] [facility], [address] [place] [address] #### 87365-2 #### [facility] ([id number]) [address] [place] [address] 06419 PHOSPHORUSon 05-26-2024 Phosphate [Mass/Vol] 4.3 mg/dL Normal 2.4-4.9 [facility] Comment on above: Performed By: #### 3 5365-6, 277-1, 2283-8, CMP, , 2132-04, FEPR, 2276-4, CBCA #### [facility] ([id number]) [address] [facility], [address] [place] [address] #### 19913-9 #### [facility] ([id number]) [address] [place] [address] Thiamine (Bld) [Moles/Vol]on 05-26-2024 Thiamin (Vitamin B1), WB 243 nmol/L High 70-180 [facility] Comment on above: Result Comment: NOTE ADDITIONAL INFORMATION This test was developed and its performance characteristics determined by [facility] in a manner consistent with CLIA requirements. This test has not been cleared or approved by the U.S. Food and Drug Administration. Test Performed by: [facility] [place] [address] [place] [address] Learning Disabilities Teacher: Juan Luis Collier Ph.D.; CLIA# [id number] Performed By: #### 3 5365-6, 2777-1, 2284-8, CMP, 42084-5, 9, FEPR, 2276-4, CBCA #### [facility] ([id number]) [address] [facility], [address] [place] [address] #### 45427-3 #### [facility] ([id number]) [address] [place] [address] 10777 VITAMIN B12on 05-26-2024 Cobalamin (Vitamin B12) [Mass/Vol] 858 pg/mL Normal 180-914 [facility] Comment on above: Performed By: #### 3 5365-6, 2777-1, 2284-8, CMP, 59856-3, 9, FEPR, 2276-4, CBCA #### [facility] ([id number]) [address], [address] [place] [address] #### 83820-2 #### [facility] ([id number]) [address] [place] [address] 28675 Vitamin D+Metabolites [Mass/ Vol]on 05-26-2024 VITAMIN D 25 HYD TOT 75.7 ng/mL Normal 30-100 [facility] Comment on above: Result Comment: Vitamin D status 25 [place] Vitamin D Deficiency <20 ng/mL Insufficiency 20-29 ng/mL Sufficiency 30-100 ng/mL Toxicity >100 ng/mL NOTE: A pediatric reference range has not been established by the foundry supervisor of this kit. The [employer] recommends a Vitamin D level of = or >20ng/mL in infants and children. Performed By: #### 3 5365-6, 2777-1, 2284-8, CMP, 98639-9, 2132-9, FEPR, 2276-4, CBCA #### [facility] ([id number]) [address] [place] [address], [address] [place] [address] #### 43348-0 #### [facility] ([id number]) [address] [place] [address], [place] [address] MR SHOULDER RIGHT WO IV CONT RASTon 05-02-2024 MR SHOULDER RIGHT WO IV CONTRAST EXAM: MR SHOULDER RIGHT WO IV CONTRAST HISTORY: Shoulder pain and limited range of motion TECHNIQUE: Multiplanar multisequence MRI of the shoulder was performed Without contrast. COMPARISON: Shoulder radiograph April 26, 2024 FINDINGS: Mild degenerative changes of the acromioclavicular joint without undersurface osteophyte formation. Lateral downsloping of the acromion. The acromion is curved. Coracoclavicular ligament intact. Trace subacromial/subdeltoid bursal fluid. High-grade partial-thickness articular surface tear of distal anterior and mid fibers of supraspinatus tendon at the footprint measuring approximately 7 mm in AP dimension with tiny full-thickness tear component superimposed on mild tendinosis. Tiny intrasubstance tear along the myotendinous junction of infraspinatus. Subscapularis and teres minor tendons are intact. No atrophy or fatty infiltration of the rotator cuff musculature. The intra-articular and extra-articular long head biceps tendon is intact. The biceps tendon resides within the bicipital groove. Tear of the superior labrum with involvement of the biceps anchor. Partial-thickness cartilage loss of the humeral head without well-defined cartilage defect No glenohumeral joint effusion . IMPRESSION: High-grade partial-thickness articular surface tear of distal anterior mid fibers of supraspinatus tendon with tiny full-thickness tear component. Tiny intrasubstance tear along the myotendinous junction of infraspinatus. Tear of the superior labrum. ELECTRONICALLY SIGNED BY: Alejandro Baker, DO Normal Not Available No Panel Informationon 04-26 WILLIAN Gonsalves 04/26/2024 3:46 PM L Inj/Asp: R subacromial bursa on 04/26/2024 3:38 PM Indications: pain Details: 21 G needle, posterior approach Medications: 40 mg methylPREDNISolone acetate 40 MG/ML Outcome: tolerated well, no immediate complications Utilizing aseptic technique with universal precautions . Pt given injection Right Shoulder SA space (Code 67699 RT) Procedure, treatment alternatives, risks and benefits explained, specific risks discussed. Consent was given by the patient. [facility] CBC AND AUTO DIFFon 02-08-20 24 ABSOLUTE BASOPHIL 0.0 X10E9/L Normal 0.0-0.2 [facility] Comment on above: Performed By: #### 3 5365-6, 7-1, 2283-8, CMP, 27182-0, 2132-04, FEPR, 6-4, CBCA #### [facility] ([id number]) [address] [place] [address], [address] [place] [address] #### 14712-3 #### [facility] ([id number]) [address] [place] [address], [place] [address] ABSOLUTE NEUTROPHIL 5.3 X10E9/L Normal 1.5-6.6 [facility] Comment on above: Performed By: #### 3 5365-6, 2777-1, 4-8, CMP, 96740-9, 9, FEPR, 2276-4, CBCA #### [facility] ([id number]) [address], [address] [place] [address] #### 76592-9 #### [facility] ([id number]) [address] [place] [address] 65796 Basophils/100 WBC (Bld) 0.5 % Normal [facility] Comment on above: Performed By: #### 3 5365-6, 2777-1, 2284-8, CMP, 31738-2, 2131-9, FEPR, 2276-4, CBCA #### [facility] ([id number]) [address] [facility], [address] [place] [address] #### 11278-4 #### [facility] ([id number]) [address] [place] [address] 31408 Eosinophils (Bld) [#/Vol] 0.3 10*3/uL Normal 0.0-0.4 [facility] Comment on above: Performed By: #### 3 5365-6, 2777-1, 4-8, CMP, 24556-3, 2131-9, FEPR, 2276-4, CBCA #### [facility] ([id number]) [address] [facility], [address] [place] [address] #### 90118-1 #### [facility] ([id number]) [address] [place] [address] 56821 Eosinophils/100 WBC (Bld) 3.2 % Normal [facility] Comment on above: Performed By: #### 3 5365-6, 2777-1, 2284-8, CMP, 31387-6, 2131-9, FEPR, 2276-4, CBCA #### [facility] ([id number]) [address], [address] [place] [address] #### 44309-6 #### [facility] ([id number]) [address] [place] [address] 10467 Erythrocyte distribution width (RBC) [Ratio] 15.9 % High 11.5-15.0 [facility] Comment on above: Performed By: #### 3 5365-6, 2777-1, 2284-8, CMP, 24892-9, 2131-9, FEPR, 2276-4, CBCA #### [facility] ([id number]) [address], [address] [place] [address] #### 11411-2 #### [facility] ([id number]) [address] [place] [address] 35967 Hematocrit (Bld) [Volume fraction] 37.8 % Normal 35-47 [facility] Comment on above: Performed By: #### 3 5365-6, 7-1, 2283-8, CMP, 94847-8, 2131-9, FEPR, 2276-4, CBCA #### [facility] ([id number]) [address] [place] [address], [address] [place] [address] #### 12347-6 #### [facility] ([id number]) [address] [place] [address] 88736 Hemoglobin (Bld) [Mass/Vol] 12.7 g/dL Normal 11.7-15.5 [facility] Comment on above: Performed By: #### 3 5365-6, 7-1, 2283-8, CMP, 88086-5, 2131-9, FEPR, 2276-4, CBCA #### [facility] ([id number]) [address] [facility], [address] [place] [address] #### 70395-9 #### [facility] ([id number]) [address] [place] [address] 73467 Lymphocytes (Bld) [#/Vol] 2.0 10*3/uL Normal 1.0-3.5 [facility] Comment on above: Performed By: #### 3 5365-6, 2777-1, 2284-8, CMP, 25057-2, 2131-9, FEPR, 2276-4, CBCA #### [facility] ([id number]) [address], [address] [place] [address] #### 53995-4 #### [facility] ([id number]) [address] [place] [address] 65858 Lymphocytes/100 WBC (Bld) 24.2 % Normal [facility] Comment on above: Performed By: #### 3 5365-6, 7-1, 4-8, CMP, 31628-4, 2131-9, FEPR, 6-4, CBCA #### [facility] ([id number]) [address], [address] [place] [address] #### 56412-0 #### [facility] ([id number]) [address] [place] [address] 02020 MCH (RBC) [Entitic mass] 29.6 pg Normal 27-34 [facility] Comment on above: Performed By: #### 3 5365-6, 7-1, 4-8, CMP, 25985-2, 2131-9, FEPR, 2276-4, CBCA #### [facility] ([id number]) [address], [address] [place] [address] #### 07611-0 #### [facility] ([id number]) [address] [place] [address] 13205 MCHC (RBC) [Mass/Vol] 33.7 g/dL Normal 32-36 [facility] Comment on above: Performed By: #### 3 5365-6, 2777-1, 2284-8, CMP, 76463-4, 213-9, FEPR, 2276-4, CBCA #### [facility] ([id number]) [address] [facility], [address] [place] [address] #### 07154-8 #### [facility] ([id number]) [address] [place] [address] 27201 MCV (RBC) [Entitic vol] 88 fL Normal 80-100 [facility] Comment on above: Performed By: #### 3 5365-6, 2777-1, 2284-8, CMP, 02041-5, 2131-9, FEPR, 2276-4, CBCA #### [facility] ([id number]) [address] [facility], [address] [place] [address] #### 36733-5 #### [facility] ([id number]) [address] [place] [address] 98455 Monocytes (Bld) [#/Vol] 0.5 10*3/uL Normal 0-0.9 [facility] Comment on above: Performed By: #### 3 5365-6, 2777-1, 2283-8, CMP, 67492-1, 9, FEPR, 2276-4, CBCA #### [facility] ([id number]) [address] [facility], [address] [place] [address] #### 70745-2 #### [facility] ([id number]) [address] [place] [address] 60337 Monocytes/100 WBC (Bld) 6.4 % Normal [facility] Comment on above: Performed By: #### 3 5365-6, 2777-1, 2284-8, CMP, 30322-4, 2131-9, FEPR, 2276-4, CBCA #### [facility] ([id number]) [address] [facility], [address] [place] [address] #### 50121-6 #### [facility] ([id number]) [address] [place] [address] 36786 Neutrophils/100 WBC (Bld) 65.7 % Normal [facility] Comment on above: Performed By: #### 3 5365-6, 2776-1, 2283-8, CMP, 25462-1, 2131-9, FEPR, 2276-4, CBCA #### [facility] ([id number]) [address], [address] [place] [address] #### 36211-8 #### [facility] ([id number]) [address] [place] [address] 30352 Platelet mean volume (Bld) [Entitic vol] 8.5 fL Normal 7-12 [facility] Comment on above: Performed By: #### 3 5365-6, 2776-, 8, CMP, 71977-5, 9, FEPR, 2276-4, CBCA #### [facility] ([id number]) [address], [address] [place] [address] #### 05580-1 #### [facility] ([id number]) [address] [place] [address] 56488 Platelets (Bld) [#/Vol] 250 10*3/uL Normal 150-450 [facility] Comment on above: Performed By: #### 3 5365-6, 2776-, 8, CMP, 81075-4, 9, FEPR, 2276-4, CBCA #### [facility] ([id number]) [address], [address] [place] [address] #### 01852-9 #### [facility] ([id number]) [address] [place] [address] 16201 RBC COUNT 4.29 X10E12/L Normal 3.80-5.20 [facility] Comment on above: Performed By: #### 3 5365-6, 2777-1, 2284-8, CMP, 60909-4, 2132-9, FEPR, 2276-4, CBCA #### [facility] ([id number]) [address], [address] [place] [address] #### 88805-0 #### [facility] ([id number]) [address] [place] [address] 83467 WBC (Bld) [#/Vol] 8.1 10*3/uL Normal 4.0-11.0 [facility] Comment on above: Performed By: #### 3 5365-6, 2777-1, 2284-8, CMP, 52669-8, 2-9, FEPR, 2276-4, CBCA #### [facility] ([id number]) [address], [address] [address] #### 33037-5 #### [facility] ([id number]) [address] [place] [address] 20772 COMPREHENSIVE METABOLIC PANE Reilly 02-08-2024 Albumin [Mass/Vol] 3.7 g/dL Normal 3.2-5.3 [facility] Comment on above: Performed By: #### 3 5365-6, 2777-1, 2284-8, CMP, 90256-1, 2132-9, FEPR, 2276-4, CBCA #### [facility] ([id number]) [address] [address], [address] [place] [address] #### [id number] #### [facility] ([id number]) [address] [place] [address] 01383 ALP [Catalytic activity/Vol] 79 U/L Normal 39-130 [facility] Comment on above: Performed By: #### 3 5365-6, 2777-1, 2284-8, CMP, 15467-4, 2132-9, FEPR, 2276-4, CBCA #### [facility] ([id number]) [address], [address] [place] [address] #### 01813-6 #### [facility] ([id number]) [address] [place] [address] 41119 ALT [Catalytic activity/Vol] 19 U/L Normal 0-31 [facility] Comment on above: Performed By: #### 3 5365-6, 2777-1, 2284-8, CMP, 65935-5, 2-9, FEPR, 2276-4, CBCA #### [facility] ([id number]) [address] [facility], [address] [place] [address] #### 54251-9 #### [facility] ([id number]) [address] [place] [address] 35928 Anion gap [Moles/Vol] 10 mmol/L Normal 5-15 [facility] Comment on above: Performed By: #### 3 5365-6, 2777-1, 2284-8, CMP, 77608-4, 2131-9, FEPR, 2276-4, CBCA #### [facility] ([id number]) [address] [facility], [address] [place] [address] #### 26175-1 #### [facility] ([id number]) [address] [place] [address] 05651 AST [Catalytic activity/Vol] 19 U/L Normal 0-41 [facility] Comment on above: Performed By: #### 3 5365-6, 2777-1, 2284-8, CMP, 97181-0, 2131-9, FEPR, 2276-4, CBCA #### [facility] ([id number]) [address], [address] [place] [address] #### 31898-4 #### [facility] ([id number]) [address] [place] [address] 68337 Bilirubin [Mass/Vol] 0.4 mg/dL Normal 0.3-1.2 [facility] Comment on above: Performed By: #### 3 5365-6, 2776-1, 2283-8, CMP, 09409-8, 2131-9, FEPR, 2276-4, CBCA #### [facility] ([id number]) [address] [place] [address] #### 09619-0 #### [facility] ([id number]) [address] [place] [address] 62775 Calcium [Mass/Vol] 9.7 mg/dL Normal 8.5-10.5 [facility] Comment on above: Performed By: #### 3 5365-6, 2776-08, 8, CMP, 59069-1, 9, FEPR, 2276-4, CBCA #### [facility] ([id number]) [address], [address] [place] [address] #### 50844-5 #### [facility] ([id number]) [address] [place] [address] 68114 Chloride [Moles/Vol] 105 mmol/L Normal 98-109 [facility] Comment on above: Performed By: #### 3 5365-6, 2776-, 8, CMP, 17301-0, 9, FEPR, 2276-4, CBCA #### [facility] ([id number]) [address], [address] [place] [address] #### 12874-0 #### [facility] ([id number]) [address] [place] [address] 72852 CO2 [Moles/Vol] 29 mmol/L Normal 22-32 [facility] Comment on above: Performed By: #### 3 5365-6, 2777-1, 2284-8, CMP, 77885-6, 2131-9, FEPR, 2276-4, CBCA #### [facility] ([id number]) [address], [address] [place] [address] #### 74992-9 #### [facility] ([id number]) [address] [place] [address] Creatinine [Mass/Vol] 0.65 mg/dL Normal 0.40-1.00 [facility] Comment on above: Result Comment: METH OD TRACEABLE TO IDMS STANDARD Performed By: #### 3 5365-6, 7-1, 2283-8, CMP, 69295-3, 2131-9, FEPR, 2276-4, CBCA #### [facility] ([id number]) [address], [address] [place] [address] #### 76314-5 #### [facility] ([id number]) [address] [place] [address] 69950 eGFR (CKD-EPI) NON-RACE DEPENDENT >90 Normal >59 [facility] Comment on above: Result Comment: Reported eGFR is based on the CKD-EPI 2020 equation that does not use a race coefficient. Performed By: #### 3 5365-6, 2777-1, 2284-8, CMP, 56912-2, 2131-9, FEPR, 2276-4, CBCA #### [facility] ([id number]) [address], [address] [place] [address] #### 24863-9 #### [facility] ([id number]) [address] [place] [address] 47258 Glucose [Mass/Vol] 93 mg/dL Normal 65-99 [facility] Comment on above: Performed By: #### 3 5365-6, 2777-1, 2284-8, CMP, 07787-4, 213-9, FEPR, 2276-4, CBCA #### [facility] ([id number]) [address], [address] [place] [address] #### 43882-4 #### [facility] ([id number]) [address] [place] [address] 40381 Potassium [Moles/Vol] 3.8 mmol/L Normal 3.5-5.0 [facility] Comment on above: Performed By: #### 3 5365-6, 7-1, 2283-8, CMP, 67535-4, 9, FEPR, 2276-4, CBCA #### [facility] ([id number]) [address], [address] [place] [address] #### 83497-5 #### [facility] ([id number]) [address] [place] [address] 34176 Protein [Mass/Vol] 6.6 g/dL Normal 6.0-8.0 [facility] Comment on above: Performed By: #### 3 5365-6, 7-1, 2283-8, CMP, 15091-0, 2132-04, FEPR, 2276-4, CBCA #### [facility] ([id number]) [address], [address] [place] [address] #### 38480-6 #### [facility] ([id number]) [address] [place] [address] 74603 Sodium [Moles/Vol] 144 mmol/L Normal 134-146 [facility] Comment on above: Performed By: #### 3 5365-6, 2777-1, 2284-8, CMP, 49646-5, 9, FEPR, 2276-4, CBCA #### [facility] ([id number]) [address] [place] [address] #### 52233-4 #### [facility] ([id number]) [address] [place] [address] 91942 Urea nitrogen [Mass/Vol] 12 mg/dL Normal 5-23 [facility] Comment on above: Performed By: #### 3 5365-6, 2777-1, 2284-8, CMP, 79321-8, 2132-9, FEPR, 2276-4, CBCA #### [facility] ([id number]) [address] [place] [address], [address] [place] [address] #### 61674-4 #### [facility] ([id number]) [address] [place] [address] 09606 FERRITINon 02-08-2024 Ferritin [Mass/Vol] 109 ng/mL Normal 11-307 [facility] Comment on above: Performed By: #### 3 5365-6, 2777-1, 2284-8, CMP, 28136-1, 2131-9, FEPR, 2276-4, CBCA #### [facility] ([id number]) [address] [place] [address], [address] [place] [address] #### 32093-7 #### [facility] ([id number]) [address] [place] [address] 01822 Folate [Mass/Vol]on 02-08-20 24 FOLIC ACID 12.0 ng/mL Normal >5.8 [facility] Comment on above: Result Comment: NEW REFERENCE RANGE Performed By: #### 3 5365-6, 2777-1, 2284-8, CMP, 51156-7, 2132-9, FEPR, 2276-4, CBCA #### [facility] ([id number]) [address] [place] [address], [address] [place] [address] #### 78131-8 #### [facility] ([id number]) [address] [place] [address] 53776 IRON PROFILEon 02-08-2024 Iron [Mass/Vol] 48 ug/dL Low 50-170 [facility] Comment on above: Performed By: #### 3 5365-6, 2777-1, 2284-8, CMP, 17057-2, 2131-9, FEPR, 2276-4, CBCA #### [facility] ([id number]) [facility] [facility], [address] [place] [address] #### 58993-5 #### [facility] ([id number]) [address] [place] [address] 68805 IRON BINDING 277 ug/dL Normal 250-425 [facility] Comment on above: Performed By: #### 3 5365-6, 2777-1, 2283-8, CMP, 89582-3, 2131-9, FEPR, 2276-4, CBCA #### [facility] ([id number]) [address] [place] [address], [address] [place] [address] #### 79318-5 #### [facility] ([id number]) [address] [place] [address] 37372 IRON SATURATION 17 % SATURATION Normal 15-50 [facility] Comment on above: Performed By: #### 3 5365-6, 2777-1, 2284-8, CMP, 77047-0, 2131-9, FEPR, 2276-4, CBCA #### [facility] ([id number]) [address] [place] [address], [address] [place] [address] #### 68444-3 #### [facility] ([id number]) [address] [place] [address] 86910 MAGNESIUMon 02-08-2024 Magnesium [Mass/Vol] 1.9 mg/dL Normal 1.8-2.6 [facility] Comment on above: Performed By: #### 3 5365-6, 2777-1, 2283-8, CMP, 29904-4, 2132-9, FEPR, 2276-4, CBCA #### [facility] ([id number]) [address] [facility], [address] [place] [address] #### 15712-9 #### [facility] ([id number]) [address] [place] [address] PHOSPHORUSon 02-08-2024 Phosphate [Mass/Vol] 3.9 mg/dL Normal 2.4-4.9 [facility] Comment on above: Performed By: #### 3 5365-6, 7-1, 2283-8, CMP, , 2132-04, FEPR, 6-4, CBCA #### [facility] ([id number]) [address] [facility], [address] [place] [address] #### 56574-0 #### [facility] ([id number]) [address] [place] [address] 18834 Thiamine (Bld) [Moles/Vol]on 02-08-2024 Thiamin (Vitamin B1), WB 318 nmol/L High 70-180 [facility] Comment on above: Result Comment: NOTE ADDITIONAL INFORMATION This test was developed and its performance characteristics determined by [facility] in a manner consistent with CLIA requirements. This test has not been cleared or approved by the U.S. Food and Drug Administration. Test Performed by: [facility] [address] [place] [address] Learning Disabilities Teacher: Juan Luis Collier Ph.D.; CLIA# [id number] Performed By: #### 3 5365-6, 7-1, 2283-8, CMP, 90189-3, 2132-04, FEPR, 2276-4, CBCA #### [facility] ([id number]) [address] [facility], [address] [place] [address] #### 03693-2 #### [facility] ([id number]) [address] [place] [address] 70699 VITAMIN B12on 02-08-2024 Cobalamin (Vitamin B12) [Mass/Vol] 541 pg/mL Normal 180-914 [facility] Comment on above: Performed By: #### 3 5365-6, 2777-1, 4-8, [facility], 56869-7, 2132-04, FEPR, 6-4, CBCA #### [facility] ([id number]) [address] [place] [address], [address] [place] [address] #### 45069-9 #### [facility] ([id number]) [address] [place] [address] 00181 Vitamin D+Metabolites [Mass/ Vol]on 02-08-2024 VITAMIN D 25 HYD TOT 74.8 ng/mL Normal 30-100 [facility] Comment on above: Result Comment: Vitamin D status 25 [place] Vitamin D Deficiency <20 ng/mL Insufficiency 20-29 ng/mL Sufficiency 30-100 ng/mL Toxicity >100 ng/mL NOTE: A pediatric reference range has not been established by the foundry supervisor of this kit. The [employer] recommends a Vitamin D level of = or >20ng/mL in infants and children. 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 COMPARISON: 09/30/2022 and priors TECHNIQUE: Bilateral digital tomosynthesis MLO and CC views of the breasts were obtained, with creation of synthetic 2D views. Computer aided detection was utilized. FINDINGS: There are scattered areas of fibroglandular density. There are no suspicious masses, calcifications, or areas of architectural distortions. IMPRESSION: No mammographic evidence of malignancy. BI-RADS: BI-RADS 1 - Negative Recommendation: Routine screening mammogram in 1 year. Finalized by Leroy Everett MD on 10/12/2023 8:36 AM 1 b MAMM 1 YR Normal [facility] IGP,APTIMA HPV,AGE GDLNon AGE GDLN ACOG TESTING Note . [facility] Comment on above: TESTS RESULT FLAG UN ITS REF RANGE LAB Clinician Provided Cytology Information Source.............Vagina LMP / Prev Treat...Hyst Tot No. of containers..01 ThinPrep Vial Age Algo ACOG Ny... 30-65 01 FLAG LEGEND: L-Low Normal,H-High Normal,LL-Alert Low,HH-Alert High <-Panic Low,>-Panic High,A-Abnormal,AA-Critical Abnormal Performed at: 01 =G [address] [place] [address] Mira Orozco MD, HPV APTIMA Negative Negative [facility] Comment on above: This nucleic acid am plification test detects fourteen high- risk HPV types (16,18,31,33,35,39,45,51,52,56,58,59,66,68) without differentiation. Performed at: =[address] [id number] Learning Disabilities Teacher: Mira Orozco MD, Phone: [phone] Performed at: [address], [place] [id number] Learning Disabilities Teacher: Mira Orozco MD, Phone: [phone] IGP, APTIMA HPV, RFX 16/18,45 Note . [facility] Comment on above: TESTS RESULT FLAG UN ITS REF RANGE LAB DIAGNOSIS: 02 NEGATIVE FOR INTRAEPITHELIAL LESION OR MALIGNANCY. Specimen adequacy: 02 Satisfactory for evaluation. No endocervical cells are present. This is consistent with a history of hysterectomy. Performed by: Anuj Neri, Skid Worker ([facility]) . 02 Note: Note 02 The Pap smear is a screening test designed to aid in the detection of premalignant and malignant conditions of the uterine cervix. It is not a diagnostic procedure and should not be used as the sole means of detecting cervical cancer. Both false-positive and false-negative reports do occur. Test Methodology: Note 02 This liquid based ThinPrep(R) pap test was screened with the use of an image guided system. HPV Genotype Reflex Note 02 Criteria not met, HPV Genotype not performed. FLAG LEGEND: L-Low Normal,H-High Normal,LL-Alert Low,HH-Alert High <-Panic Low,>-Panic High,A-Abnormal,AA-Critical Abnormal Performed at: 02 WB [facility] [address] [place] [address] Mira Orozco MD, SPATULA-ALONE VAGINA [facility] POINT OF CARE GLUCOSEon - Glucose [Mass/Vol] 133 mg/dL Critically high 74-[address] [facility] Comment on above: Performed By: #### P OCGLUC #### [facility] [address] [address] [address] Michael Johnson PAP ACOG PANEL 2: 30 to 65on 09-01-2022 . . Normal [facility] Comment on above: Result Comment: Perf ormed at: [facility] Performed By: #### 4 [id number] #### [facility] [address] [address] [address] Michael Johnson Age Gdln ACOG Testing - Normal [facility] Comment on above: Performed By: #### 4 257583 #### [facility] [address] [address] [address] Michael Johnson DIAGNOSIS: Comment Normal [facility] Comment on above: Result Comment: NEGA TIVE FOR INTRAEPITHELIAL LESION OR MALIGNANCY. Performed at: [facility] Performed By: #### 4 041939 #### [facility] [address] [address] [address] Michael Johnson HPV Aptima Negative Normal Negative [facility] Comment on above: Result Comment: This nucleic acid amplification test detects fourteen high-risk HPV types (16,18,31,33,35,39,45,51,52,56,58,59,66,68) without differentiation. Performed at: =G Performed By: #### 4 [id number] #### [facility] [address] [address] [address] Michael Johnson HPV Genotype Reflex Comment Normal [facility] Comment on above: Result Comment: Crit eria not met, HPV Genotype not performed. Performed at: [facility] Performed By: #### 4 806540 #### [facility] [address] [place] [address] Dr. Michael Johnson Methodology: Comment Normal [facility] Comment on above: Result Comment: This liquid based ThinPrep(R) pap test was screened with the use of an image guided system. Performed at: [facility] Performed By: #### 4 394689 #### [facility] [address] [place] [address] Dr. Michael Johnson Note: Comment Normal [facility] Comment on above: Result Comment: The Pap smear is a screening test designed to aid in the detection of premalignant and malignant conditions of the uterine cervix. It is not a diagnostic procedure and should not be used as the sole means of detecting cervical cancer. Both false-positive and false-negative reports do occur. . Performed at: [facility] Performed By: #### 4 [id number] #### [facility] [address] [place] [address] Dr. Michael Johnson Performed by: Comment Normal [facility] Comment on above: Result Comment: Kadeem Rodrigues, Skid Worker (ASCP) Performed at: [facility] Performed By: #### 4 859289 #### [facility] [address] [place] [address] Dr. Michael Johnson Specimen adequacy: Comment Normal [facility] Comment on above: Result Comment: Sati sfactory for evaluation. No endocervical component is identified. Performed at: [facility] Performed By: #### 4 887579 #### [facility] [address] [place] [address] Dr. Michael Johnson Auth for Release of Medical Recordson 10-29-2020 Auth for Release of Medical Records [id number] Normal [facility] Ambulatory Clinical Summaryo n 10-17-2020 Ambulatory Clinical Summary {[id number] Normal [facility] Endocrinology Office/Clinic Noteon 10-17-2020 Endocrinology Office/Clinic Note Chief Complaint 4 month follow up HPI Staff Pt is a 55 year old female here for 4 month follow up to DM and Hypothyroidism Patient checks blood sugars: Pt states that she does not check her BS Am average: Diet consists of: 1 meal w/ 1 snack Foot Exam: Pt does not remember Eye Exam: Pt does not remember Last Labs: 09/30/2020 Last A1C: Micro: LDL: 123 Insulin: Ozempic 0.5m qwk Oral Medication: Metformin ER 500mg BID Refills/Pharmacy: Yes Numbness or tingling in feet: No Excessive thirst: No Visual changes: No Frequent urination: No Patient here today to follow up on thyroid. Dx: Hypothyroidism Meds: Synthroid 112mcg qd Refills?: Yes Recent labs: T3- T3F- T4- T4F- TSH- 1.87 PTH- Thyroglobin- Recent imaging: Change in energy level? No Weight change? No Heat/cold intolerance? NoNo Change in bowels? No Palpitations? No Difficulty Swallowing? No ROS per patient: General: no weight change, yes night sweats, no loss of appetite, yes fatigue. Eyes: no glaucoma, no cataracts. Ears: no ear discharge. Nose: no sinus problems Throat: no difficulty swallowing Respiratory: no cough, no wheezing, no shortness of breath. Cardiovascular: no chest pain, no swelling in legs, no irregular heartbeat. Neurology: no numbness, no tingling, no tremors, no weakness. Gastrointestinal: yes diarrhea, no abdominal pain, no constipation, no vomiting. Genitourinary: no kidney stones, no dysuria/pain urinating, no urinating at night. Psychiatric: no depression, no anxiety/panic attacks, no sleep problems/insomnia. Musculoskeletal: no joint pain, no muscle aches, no history of falls, no broken bones. Skin: no rash, no dryness, no sweating. Endocrine: no hot flashes, no heat intolerance, no cold intolerance, no hair loss. Reproductive: no post-menopausal, no irregular periods, no erectile dysfunction, no sexual problems. Review of Systems PHQ Score Initial Depression Screen Score: 0 Physical Exam Vitals & Measurements HR: 73(Peripheral) RR: 16 BP: 126/83 SpO2: 92% HT: 163 cm HT: 163.0 cm WT: 124.6 kg WT: 124.6 kg BMI: 46.9 Assessment/Plan 1. Type 2 diabetes mellitus (E11.9: Type 2 diabetes mellitus without complications) Ordered: semaglutide, 0.5 mg, SubCutaneous, qWeek, # 2 EA, Refills(s) 3, Weight Dosing Comprehensive Metabolic Panel Free [place] [address] HgbA1c Lipid Panel Microalbumin Level Urine Office Visit Level 4 Est 58821 Office Visit Level 4 Est 87571 Thyroid Stimulating Hormone 2. Hypothyroidism (E03.9: Hypothyroidism, unspecified) Ordered: Comprehensive Metabolic Panel Free T4 HgbA1c Lipid Panel Microalbumin Level Urine Office Visit Level 4 Est 18165 Office Visit Level 4 Est 13646 Thyroid Stimulating Hormone 3. Morbid obesity (E66.01: Morbid (severe) obesity due to excess calories) Ordered: Comprehensive Metabolic Panel Free T4 HgbA1c Lipid Panel Microalbumin Level Urine Office Visit Level 4 Est 13636 Office Visit Level 4 Est 14687 Thyroid Stimulating Hormone 4. Fatigue (R53.83: Other fatigue) Ordered: Office Visit Level 4 Est 25386 Orders: levothyroxine, 112 microgram, Oral, Daily, # 90 tab(s), Refills(s) 0, Weight Dosing metformin, 1,000 mg = 2 tab(s), Oral, Daily, # 180 tab(s), Refills(s) 1, Weight Dosing Follow-up No qualifying data available Problem List/Past Medical History Ongoing Abnormal weight gain Anemia Arthritis Depression Fatigue Goiter Hypothyroidism Loss of hair Morbid obesity Sleep apnea Surgical menopause Type 2 diabetes mellitus Historical No qualifying data Procedure/Surgical History Kidney (08/02/2000), Cholecystectomy, Endometrial ablation, History of breast reduction, Ovarian cystectomy, Tonsillectomy, Tubal ligation. Medications CeleXA 20 mg Tab dexamethasone 1 mg oral tablet, 1 mg= 1 tab(s), Oral, Once, Not taking Estrace 0.1 mg/g Cream MetFORMIN (Eqv-Glucophage XR) 500 mg oral tablet, extended release, 1000 mg= 2 tab(s), Oral, Daily, 1 refills Ozempic (0.25 mg or 0.5 mg dose) 2 mg/1.5 mL subcutaneous solution, 0.5 mg, SubCutaneous, qWeek, 3 refills Synthroid 112 mcg Tab, 112 mcg, Oral, Daily Allergies No Known Medication Allergies Social History Tobacco Never (less than 100 in lifetime) Tobacco Use:. Never Smokeless Tobacco Use:. Ready to change: No. Household tobacco concerns: No., 10/17/2020 Family History Acute myocardial infarction: Father. Hyperlipidemia: Mother and Father. Hypertension: Father. Primary malignant neoplasm of bladder: Father. Immunizations Vaccine Date Status influenza virus vaccine, inactivated 05/23/2020 Recorded Lab Results Ambulatory Point of Care Results Hgb A1c POC: 5.9 % (10/17/20 16:17:00) Normal [facility] Comment on above: Result Comment: Elec tronically Signed By: Mgehna HYMAN\.br\Date and Time Signed: 10/17/20 17:29 EDT Endocrinology Office/Clinic Note Chief Complaint 4 month follow up HPI Staff Pt is a 55 year old female here for 4 month follow up to DM and Hypothyroidism Patient checks blood sugars: Pt states that she does not check her BS Am average: Diet consists of: 1 meal w/ 1 snack Foot Exam: Pt does not remember Eye Exam: Pt does not remember Last Labs: 09/30/2020 Last A1C: Micro: LDL: 123 Insulin: Ozempic 0.5m qwk Oral Medication: Metformin ER 500mg BID Refills/Pharmacy: Yes Numbness or tingling in feet: No Excessive thirst: No Visual changes: No Frequent urination: No Patient here today to follow up on thyroid. Dx: Hypothyroidism Meds: Synthroid 112mcg qd Refills?: Yes Recent labs: T3- T3F- T4- T4F- TSH- 1.87 PTH- Thyroglobin- Recent imaging: Change in energy level? No Weight change? No Heat/cold intolerance? NoNo Change in bowels? No Palpitations? No Difficulty Swallowing? No ROS per patient: General: no weight change, yes night sweats, no loss of appetite, yes fatigue. Eyes: no glaucoma, no cataracts. Ears: no ear discharge. Nose: no sinus problems Throat: no difficulty swallowing Respiratory: no cough, no wheezing, no shortness of breath. Cardiovascular: no chest pain, no swelling in legs, no irregular heartbeat. Neurology: no numbness, no tingling, no tremors, no weakness. Gastrointestinal: yes diarrhea, no abdominal pain, no constipation, no vomiting. Genitourinary: no kidney stones, no dysuria/pain urinating, no urinating at night. Psychiatric: no depression, no anxiety/panic attacks, no sleep problems/insomnia. Musculoskeletal: no joint pain, no muscle aches, no history of falls, no broken bones. Skin: no rash, no dryness, no sweating. Endocrine: no hot flashes, no heat intolerance, no cold intolerance, no hair loss. Reproductive: no post-menopausal, no irregular periods, no erectile dysfunction, no sexual problems. Review of Systems PHQ Score Initial Depression Screen Score: 0 Physical Exam Vitals & Measurements HR: 73(Peripheral) RR: 16 BP: 126/83 SpO2: 92% HT: 163 cm HT: 163.0 cm WT: 124.6 kg WT: 124.6 kg BMI: 46.9 Assessment/Plan 1. Type 2 diabetes mellitus (E11.9: Type 2 diabetes mellitus without complications) Patient is here for follow-up of her diabetes. Patient does not have a log book today patient was advised to check her sugar at least once a day. I have emphasized the need of checking her sugar before bedtime. Patient does walk her dog daily. A1c done on 09/30/2020 was 5.9. Patient agrees to increasing her activity and decrease her carb intake. I have prescribed her metformin 1000 mg 1 tablet twice a day. Last LDL was 123. This time patient wishes to watch her diet. Does not want any new medication. Patient was asked not to eat cheese butter egg yolk till we see her next time. I will check her labs before her next visit. Ordered: semaglutide, 0.5 mg, SubCutaneous, qWeek, # 2 EA, Refills(s) 3, Weight Dosing Comprehensive Metabolic Panel [place] [address] HgbA1c Lipid Panel Microalbumin Level Urine Office Visit Level 4 Est 69431 Thyroid Stimulating Hormone 2. Hypothyroidism (E03.9: Hypothyroidism, unspecified) Patient is following up for hypothyroidism. TSH done on 09/30/2020 was 1.87 patient will continue taking 112 mcg of levothyroxine once a day. With water. Patient will recheck her CMP TSH free T4 before her next visit. Prescriptions were refilled at this visit. Ordered: Comprehensive Metabolic Panel Free T4 HgbA1c Lipid Panel Microalbumin Level Urine Office Visit Level 4 Est 94929 Thyroid Stimulating Hormone 3. Morbid obesity (E66.01: Morbid (severe) obesity due to excess calories) OBESITY: Weight reduction is advised we discussed the need for lifestyle modification active exercise program monitoring weight on a daily basis. We also reviewed the morbidity associated with obesity. Ordered: Comprehensive Metabolic Panel Free T4 HgbA1c Lipid Panel Microalbumin Level Urine Office Visit Level 4 Est 79348 Thyroid Stimulating Hormone 4. Fatigue (R53.83: Other fatigue) Fatigue is much improved since her last visit. Orders: levothyroxine, 112 microgram, Oral, Daily, # 90 tab(s), Refills(s) 0, Weight Dosing metformin, 1,000 mg = 2 tab(s), Oral, Daily, # 180 tab(s), Refills(s) 1, Weight Dosing Follow-up No qualifying data available Problem List/Past Medical History Ongoing Abnormal weight gain Anemia Arthritis Depression Fatigue Goiter Hypothyroidism Loss of hair Morbid obesity Sleep apnea Surgical menopause Type 2 diabetes mellitus Historical No qualifying data Procedure/Surgical History Kidney (08/02/2000), Cholecystectomy, Endometrial ablation, History of breast reduction, Ovarian cystectomy, Tonsillectomy, Tubal ligation. Medications CeleXA 20 mg Tab dexamethasone 1 mg oral tablet, 1 mg= 1 tab(s), Oral, Once, Not taking Estrace 0.1 mg/g Cream MetFORMIN (Eqv-Glucophage XR) 500 mg oral tablet, extended release, 1000 mg= 2 tab(s), Oral, Daily, 1 refills Ozempic (0.25 mg or 0.5 mg dose) 2 mg/1.5 mL subcutaneous solution, 0.5 mg, SubCutaneous, qWeek, 3 refills Synthroid 112 mcg Tab, 112 mcg, Oral, Daily Allergies No Known Medication Allergies Social History Tobacco Never (less than 100 in lifetime) Tobacco Use:. Never Smokeless Tobacco Use:. Ready to change: No. Household tobacco concerns: No., 10/17/2020 Family History Acute myocardial infarction: Father. Hyperlipidemia: Mother and Father. Hypertension: Father. Primary malignant neoplasm of bladder: Father. Immunizations Vaccine Date Status influenza virus vaccine, inactivated 05/23/2020 Recorded Lab Results Ambulatory Point of Care Results Hgb A1c POC: 5.9 % (10/17/20 16:17:00) Normal [facility] Comment on above: Result Comment: Elec tronically Signed By: NICKI DORSEY, Meghna\.br\Date and Time Signed: 10/17/20 17:29 EDT Lab Reportson 10-17-2020 Lab Reports [id number]:127 Normal [facility] Ambulatory Clinical Summaryo n 06-06-2020 Ambulatory Clinical Summary {[id number]}CD:6143 68 Normal [facility] Endocrinology Office/Clinic Noteon 06-06-2020 Endocrinology Office/Clinic Note Chief Complaint 2 month follow up w/ labs HPI Staff Lina is a 55 y.o. female here for 2 month follow up. Labs done on 05/24/20. Patient here today to follow up on thyroid. Patient checks blood sugars- patient states she does not test blood sugar Am average: Midday average: PM average: Diet consists of: 2-3 meals days Last A1C: 5.9% Micro: 2.7 LDL: 111 Insulin: Ozempic 2mg/1.5 ml Oral Medication: Metformin 1000 mg daily Refills/Pharmacy: [facility] Numbness or tingling in feet No Excessive thirst No Visual changes No Frequent urination No Patient here today to follow up on thyroid. Dx: Hypothyroidism Meds: Synthroid 112 mcg Refills?: No Recent labs: 05/24/20 T3- T3F- T4- 0.97 T4F- TSH- 1.24 PTH- Thyroglobulin- Recent imaging: Change in energy level? Chronic fatiuge Weight change? no Heat/cold intolerance? no Hair/skin/nail changes? no Change in bowels? no Palpitations? no ROS per patient: General: no weight change, yes night sweats, no loss of appetite, no fatigue. Eyes: no glaucoma, no cataracts. Ears: no ear discharge. Nose: no sinus problems Throat: no difficulty swallowing Respiratory: no cough, no wheezing, no shortness of breath. Cardiovascular: no chest pain, no swelling in legs, no irregular heartbeat. Neurology: yes numbness, yes tingling, no tremors, yes weakness. Gastrointestinal: yes diarrhea, yes abdominal pain, no constipation, no vomiting. Genitourinary: no kidney stones, no dysuria/pain urinating, no urinating at night. Psychiatric: no depression, no anxiety/panic attacks, no sleep problems/insomnia. Musculoskeletal: no joint pain, no muscle aches, no history of falls, no broken bones. Skin: no rash, yes dryness, no sweating. Endocrine: no hot flashes, no heat intolerance, no cold intolerance, no hair loss. Reproductive: no post-menopausal, no irregular periods, no erectile dysfunction, no sexual problems. History of Present Illness Patient is here for follow-up of hypothyroidism diabetes and obesity. Patient does not check her sugars at home. Does eat 2-3 meals daily. Had flu vaccine done 2 weeks ago. Denies does complain of chronic fatigue. Complains of night sweats. Does complain of tingling numbness in the feet. Patient complains of lower abdominal pain pain scale 1-10 as high as 3. Denies any diarrhea. Does complain of hair loss. Review of Systems PHQ Score Initial Depression Screen Score: 0 I have reviewed and verified the staff HPI to be accurate for this encounter. Physical Exam Vitals & Measurements T: 36.8 ?C (Oral) HR: 89(Peripheral) BP: 120/82 HT: 163.0 cm HT: 163 cm WT: 125.2 kg WT: 125.2 kg BMI: 47.12 General: alert, no acute distress Skin: warm, dry Head: no trauma, normocephalic Neck: Trachea midline, no adenopathy, no tenderness, thyroidnot enlarged Eye: normal conjunctiva, sclera clear ENMT: oral mucosa moist, yes Cardiovascular: regular rate and rhythm, normal Respiratory: respirations non labored Chest wall: no deformity. Gastrointestinal: soft, non distended, no tenderness Back: No tenderness Extremities: no edema, no wound Neurological: awake, alert, oriented, speechnormal Psychiatric: cooperative, affect appropriate for age Assessment/Plan 1. Type 2 diabetes mellitus (E11.9: Type 2 diabetes mellitus without complications) Patient is here for follow-up of her diabetes. Patient denies any hypoglycemia. Does not check her sugar on regular basis. I have advised her to check her check her sugar at least once a day. Especially before bedtime. She will maintain a log book and a diet book for next time. I have asked her to increase her protein intake. Increase activity. A1c done on 05/24/2020 was 5.9. Patient is on Ozempic 0.5 mg once a week. Is tolerating medication well. Prescription for Metformin 1000 mg 1 tablet twice daily was given. Recheck A1c in the office next time. As during labs outside are expensive for patient. Patient's LDL was 111. We will repeat her LDL. At this time patient does not wish to add any new medication for her cholesterol will watch her diet. Patient was asked not to eat cheese butter and egg yolk for next 3 months. Ordered: Basic Metabolic Panel LDL Direct Thyroid Stimulating Hormone 2. Hypothyroidism (E03.9: Hypothyroidism, unspecified) Patient's TSH done on 05/24/2020 was 1.42 free T4 was 0.97. Patient will continue to take her and 12 mcg of levothyroxine a day. Patient was asked to take this medication early in the morning empty stomach with water. Patient is been tolerating this medication well. Patient has enough refill for after her next visit. We will continue to follow her TSH. Ordered: Basic Metabolic Panel LDL Direct Thyroid Stimulating Hormone 3. Body mass index (BMI) of 45.0-49.9 in adult (Z68.42: Body mass index [BMI] 45.0-49.9, adult) OBESITY: Weight reduction is advised we discussed the need for lifestyle modification active exercise program monitoring weight on a daily basis. We also reviewed the morbidity associated with obesity. Orders: metformin, 1,000 mg = 2 tab(s), Oral, Daily, # 180 tab(s), Refills(s) 1, Pharmacy: [facility]/pharmacy #[id number], 163, cm, 06/06/20 16:39:00 EST, Height/Length Dosing, 125.2, kg, 06/06/20 16:39:00 EST, Weight Dosing Follow-up With When Contact Information Endocrinology Within 6 months [address] [facility] [address] [place] [id number] Additional Instructions: Patient to have a lab work and other tests 1 to 2 weeks prior to next appointment which will be discussed at the next visit. Please make sure we have enough refills to the next appointment. Patient Education Diabetes and Sick Day Management Problem List/Past Medical History Ongoing Abnormal weight gain Anemia Arthritis Depression Fatigue Goiter Hypothyroidism Loss of hair Morbid obesity Sleep apnea Surgical menopause Type 2 diabetes mellitus Historical No qualifying data Procedure/Surgical History Kidney (08/02/2000), Cholecystectomy, Endometrial ablation, History of breast reduction, Ovarian cystectomy, Tonsillectomy, Tubal ligation. Medications CeleXA 20 mg Tab dexamethasone 1 mg oral tablet, 1 mg= 1 tab(s), Oral, Once Estrace 0.1 mg/g Cream MetFORMIN (Eqv-Glucophage XR) 500 mg oral tablet, extended release, 1000 mg= 2 tab(s), Oral, Daily, 1 refills Ozempic (0.25 mg or 0.5 mg dose) 2 mg/1.5 mL subcutaneous solution, 0.5 mg, SubCutaneous, qWeek, 3 refills Synthroid 112 mcg Tab, 112 mcg, Oral, Daily, 1 refills Allergies No Known Medication Allergies Social History Tobacco Never (less than 100 in lifetime) Tobacco Use:. Never Smokeless Tobacco Use:. Ready to change: No. Household tobacco concerns: No., 06/06/2020 Family History Acute myocardial infarction: Father. Hyperlipidemia: Mother and Father. Hypertension: Father. Primary malignant neoplasm of bladder: Father. Immunizations Vaccine Date Status influenza virus vaccine, inactivated 05/23/2020 Recorded Normal [facility] Comment on above: Result Comment: Elec tronically Signed By: Meghna HYMAN\.br\Date and Time Signed: 06/06/20 17:20 EST Lab Reportson 06-06-2020 Lab Reports [id number]:127 Normal [facility] Patient Educationon 06-06-20 20 Patient Education Family Medicine Diabetes and Sick Day Management Blood sugar (glucose ) can be more difficult to control when you are sick. Colds, fever, flu, nausea, vomiting, and diarrhea are all examples of common illnesses that can cause problems for people with diabetes. Loss of body fluids (dehydration ) from fever, vomiting, diarrhea, infection, and the stress of a sickness can all cause blood glucose levels to rise. Because of this, it is very important to take your diabetes medicines and to eat some form of carbohydrate food when you are sick. Liquid or soft foods are often tolerated, and they help to replace fluids. HOME CARE INSTRUCTIONS These main guidelines are intended for managing a short-term (24 hours or less) sickness: ? Take your usual dose of insulin or oral diabetes medicine. An exception would be if you take any form of metformin. If you cannot eat or drink, you can become dehydrated and should not take this medicine. ? Continue to take your insulin even if you are unable to eat solid foods or are vomiting. Your insulin dose may stay the same, or it may need to be increased when you are sick. ? You will need to test your blood glucose more often, generally every 2?4 hours. If you have type 1 diabetes, test your urine for ketones every 4 hours. If you have type 2 diabetes, test your urine for ketones as directed by your caregiver. ? Eat some form of food that contains carbohydrates. The carbohydrates can be in solid or liquid form. You should eat 45?50 grams of carbohydrates every 3?4 hours. ? Replace fluids if fever, vomiting, or diarrhea is present. Ask your caregiver for specific rehydration instructions. ? Watch carefully for the signs of ketoacidosis if you have type 1 diabetes. Call your caregiver if any of the following symptoms are present, especially in children: ? Moderate to large ketones in the urine along with a high blood glucose level. ? Severe nausea. ? Vomiting. ? Diarrhea. ? Abdominal pain. ? Rapid breathing. ? Drink extra liquids that do not contain sugar, such as water or sugar-free liquids, if your blood glucose is higher than 240 mg/dl. ? Be careful with [id number] medicines. Read the labels. They may contain sugar or types of sugars that can raise your blood glucose. Food Choices for Illness All of the food choices below contain around 15 grams of carbohydrates. Plan ahead and keep some of these foods around. ? ? to ? cup carbonated beverage containing sugar. Carbonated beverages will usually be better tolerated if they are opened and left at room temperature for a few minutes. ? ? of a twin frozen ice pop. ? ? cup sweetened gelatin dessert. ? ? cup juice. ? ? cup ice cream or frozen yogurt. ? ? cup cooked cereal. ? ? cup sherbet. ? 1 cup broth-based soup with noodles or rice, reconstituted with water. ? 1 cup cream soup. ? ? cup regular custard. ? ? cup regular pudding. ? 1 cup sports drink. ? 1 cup plain yogurt. ? 1 slice toast. ? 6 squares saltine crackers. ? 5 vanilla wafers. SEEK MEDICAL CARE IF: ? You are unable to eat food or drink fluids for more than 6 hours. ? You have nausea and vomiting for more than 6 hours. ? Your blood glucose level is over 240 mg/dL. ? There is a change in mental status. ? You develop an additional serious illness. ? You have diarrhea for more than 6 hours. ? You have been sick or have had a fever for a couple of days and are not getting better. SEEK IMMEDIATE MEDICAL CARE IF: ? You have difficulty breathing. ? You have moderate to large ketone levels. Document Released: 07/21/2004 Document Revised: 04/12/2013 Document Reviewed: 01/26/2012 ExitCare? Patient Information ?2013 [employer]. Normal [facility] Ambulatory Clinical Summaryo n 03-07-2020 Ambulatory Clinical Summary {[id number]}CD:[id number] Normal [facility] Endocrinology Office/Clinic Noteon 03-07-2020 Endocrinology Office/Clinic Note Chief Complaint Dm type 2 and hypothyroid HPI Staff Patient here today to follow up on diabetes. Pt doesn't check blood suagr Oral meds: metformin Insulins: Ozempic 0.5 mg Refills? yes Most recent A1C: 6.3% on 12/22/2019 Recent labs? 12/22/2019 Patient here today to follow up on thyroid. Dx: Hypothyroidism Meds: Levothyroxine Refills? yes Recent labs: Recent imaging: none History of Present Illness Patient is here for follow-up of hypothyroidism and diabetes. Patient does not check her sugars. Does walk her dogs daily. Had flu vaccine in May 2019. Last A1c done on ut 2019 was 6.3. Patient has been taking Ozempic 0.5 mg once a week. Is tolerating the medication well. Denies any nausea. Patient does complain of diarrhea which is being worked up by her primary doctor. Denies any hypoglycemia. Patient's weight has been stable denies any skin or nail changes. Denies any hair loss recently. No labs were done for this visit. Review of Systems ROS per patient: General: no weight change, no night sweats, no loss of appetite, no fatigue. Eyes: no glaucoma, no cataracts. Ears: no ear discharge. Nose: no sinus problems Throat: no difficulty swallowing Respiratory: no cough, no wheezing, no shortness of breath. Cardiovascular: no chest pain, no swelling in legs, no irregular heartbeat. Neurology: no numbness, no tingling, no tremors, no weakness. Gastrointestinal: no diarrhea, no abdominal pain, no constipation, no vomiting. Genitourinary: no kidney stones, no dysuria/pain urinating, no urinating at night. Psychiatric: no depression, no anxiety/panic attacks, no sleep problems/insomnia. Musculoskeletal: no joint pain, no muscle aches, no history of falls, no broken bones. Skin: no rash, no dryness, no sweating. Endocrine: no hot flashes, no heat intolerance, no cold intolerance, no hair loss. Reproductive: no post-menopausal, no irregular periods, no erectile dysfunction, no sexual problems. Physical Exam Vitals & Measurements HR: 73(Peripheral) RR: 18 BP: 129/82 SpO2: 96% HT: 163 cm WT: 127.4 kg BMI: 47.95 General: alert, no acute distress Skin: warm, dry Head: no trauma, normocephalic Neck: Trachea midline, no adenopathy, no tenderness, thyroidnot enlarged Eye: normal conjunctiva, sclera clear ENMT: oral mucosa moist, yes Cardiovascular: regular rate and rhythm, normal Respiratory: respirations non labored Chest wall: no deformity. Gastrointestinal: soft, non distended, Extremities: no edema, no wound Neurological: awake, alert, oriented, speechnormal Psychiatric: cooperative, affect appropriate for age Assessment/Plan 1. Hypothyroidism (E03.9: Hypothyroidism, unspecified) We will continue levothyroxine 112 mcg a day. Patient was asked to take this medication empty stomach early in the morning with water. Patient has been tolerating this medication well. Check the CMP TSH free T4 before her next visit. Ordered: Body Mass Index (BMI) documented 3008F Comprehensive Metabolic Panel Current tobacco non-user 1036F Free T4 HgbA1c Lipid Panel Microalbumin Level Urine Thyroid Stimulating Hormone 2. Type 2 diabetes mellitus (E11.9: Type 2 diabetes mellitus without complications) Patient denies any hypoglycemia. She does not check her sugar on a regular basis. Have advised her to check her sugar once a day at different times. She will maintain log book and her diet book for the next visit. Patient was asked to increase her protein intake. Ozempic was increased 0.25 mg to 0.5 mg once a week. Patient will increase her carbohydrate intake. We will check a CMP and lipids microalbumin and A1c before her next visit. Ordered: Body Mass Index (BMI) documented 3008F Comprehensive Metabolic Panel Current tobacco non-user 1036F Free T4 HgbA1c Lipid Panel Microalbumin Level Urine Thyroid Stimulating Hormone 3. Body mass index (BMI) of 45.0-49.9 in adult (Z68.42: Body mass index (BMI) 45.0-49.9, adult) OBESITY: Weight reduction is advised we discussed the need for lifestyle modification active exercise program monitoring weight on a daily basis. We also reviewed the morbidity associated with obesity. Ordered: Body Mass Index (BMI) documented 3008F Current tobacco non-user 1036F 4. Abnormal weight gain (R63.5: Abnormal weight gain) Weight has been stable. Will continue to monitor her weight. Ordered: Body Mass Index (BMI) documented 3008F Current tobacco non-user 1036F Orders: levothyroxine, 112 microgram, Oral, Daily, # 90 tab(s), Refills(s) 1, Pharmacy: [facility]/pharmacy #[id number], 163, cm, 03/07/20 15:50:00 EDT, Height/Length Measured, 127.4, kg, 03/07/20 15:50:00 EDT, Weight Measured Follow-up With When Contact Information Endocrinology Within 3 months [address] [facility] [address] [place] [address]- Additional Instructions: Patient to have a lab work and other tests 1 to 2 weeks prior to next appointment which will be discussed at the next visit. Please make sure we have enough refills to the next appointment. Patient Education Obesity Diabetes and Sick Day Management Correction Insulin Problem List/Past Medical History Ongoing Abnormal weight gain Anemia Arthritis Depression Fatigue Goiter Hypothyroidism Loss of hair Morbid obesity Sleep apnea Surgical menopause Type 2 diabetes mellitus Historical No qualifying data Procedure/Surgical History Kidney (08/02/2000), Cholecystectomy, Endometrial ablation, History of breast reduction, Ovarian cystectomy, Tonsillectomy, Tubal ligation. Medications CeleXA 20 mg Tab dexamethasone 1 mg oral tablet, 1 mg= 1 tab(s), Oral, Once Estrace 0.1 mg/g Cream MetFORMIN (Eqv-Glucophage XR) 500 mg oral tablet, extended release, 1000 mg= 2 tab(s), Daily Ozempic (0.25 mg or 0.5 mg dose) 2 mg/1.5 mL subcutaneous solution, 0.5 mg, SubCutaneous, qWeek, 3 refills Synthroid 112 mcg Tab, 112 microgram, Oral, Daily, 1 refills Allergies No Known Medication Allergies Social History Tobacco Never (less than 100 in lifetime) Tobacco Use:. Ready to change: No. Household tobacco concerns: No., 06/22/2019 Family History Acute myocardial infarction: Father. Hyperlipidemia: Mother and Father. Hypertension: Father. Primary malignant neoplasm of bladder: Father. Normal [facility] Comment on above: Result Comment: Elec tronically Signed By: Meghna HYMAN\.br\Date and Time Signed: 03/07/20 16:45 EDT Patient Educationon 03-07-20 20 Patient Education Family Medicine Obesity Obesity is defined as having too much total body fat and a body mass index (BMI) of 30 or more. BMI is an estimate of body fat and is calculated from your height and weight. Obesity happens when you consume more calories than you can burn by exercising or performing daily physical tasks. Prolonged obesity can cause major illnesses or emergencies, such as: ? A stroke. ? Heart disease. ? Diabetes. ? Cancer. ? Arthritis. ? High blood pressure (hypertension ). ? High cholesterol. ? Sleep apnea. ? Erectile dysfunction. ? Infertility problems. CAUSES ? Regularly eating unhealthy foods. ? Physical inactivity. ? Certain disorders, such as an underactive thyroid (hypothyroidism ), Franklin's syndrome, and polycystic ovarian syndrome. ? Certain medicines, such as steroids, some depression medicines, and antipsychotics. ? Genetics. ? Lack of sleep. DIAGNOSIS A caregiver can diagnose obesity after calculating your BMI. Obesity will be diagnosed if your BMI is 30 or higher. There are other methods of measuring obesity levels. Some other methods include measuring your skin fold thickness, your waist circumference, and comparing your hip circumference to your waist circumference. TREATMENT A healthy treatment program includes some or all of the following: ? Long-term dietary changes. ? Exercise and physical activity. ? Behavioral and lifestyle changes. ? Medicine only under the supervision of your caregiver. Medicines may help, but only if they are used with diet and exercise programs. An unhealthy treatment program includes: ? Fasting. ? Fad diets. ? Supplements and drugs. These choices do not succeed in long-term weight control. HOME CARE INSTRUCTIONS ? Exercise and perform physical activity as directed by your caregiver. To increase physical activity, try the following: ? Use stairs instead of elevators. ? Park farther away from store entrances. ? Garden, bike, or walk instead of watching television or using the computer. ? Eat healthy, low-calorie foods and drinks on a regular basis. Eat more fruits and vegetables. Use low-calorie cookbooks or take healthy cooking classes. ? Limit fast food, sweets, and processed snack foods. ? Eat smaller portions. ? Keep a daily journal of everything you eat. There are many free websites to help you with this. It may be helpful to measure your foods so you can determine if you are eating the correct portion sizes. ? Avoid drinking alcohol. Drink more water and drinks without calories. ? Take vitamins and supplements only as recommended by your caregiver. ? Weight-loss support groups, Registered Dieticians, counselors, and stress reduction education can also be very helpful. SEEK IMMEDIATE MEDICAL CARE IF: ? You have chest pain or tightness. ? You have trouble breathing or feel short of breath. ? You have weakness or leg numbness. ? You feel confused or have trouble talking. ? You have sudden changes in your vision. MAKE SURE YOU: ? Understand these instructions. ? Will watch your condition. ? Will get help right away if you are not doing well or get worse. Document Released: 08/26/2005 Document Revised: 01/17/2013 Document Reviewed: 08/24/2012 ExitCare? Patient Information ?2013 [employer]. Diabetes and Sick Day Management Blood sugar (glucose ) can be more difficult to control when you are sick. Colds, fever, flu, nausea, vomiting, and diarrhea are all examples of common illnesses that can cause problems for people with diabetes. Loss of body fluids (dehydration ) from fever, vomiting, diarrhea, infection, and the stress of a sickness can all cause blood glucose levels to rise. Because of this, it is very important to take your diabetes medicines and to eat some form of carbohydrate food when you are sick. Liquid or soft foods are often tolerated, and they help to replace fluids. HOME CARE INSTRUCTIONS These main guidelines are intended for managing a short-term (24 hours or less) sickness: ? Take your usual dose of insulin or oral diabetes medicine. An exception would be if you take any form of metformin. If you cannot eat or drink, you can become dehydrated and should not take this medicine. ? Continue to take your insulin even if you are unable to eat solid foods or are vomiting. Your insulin dose may stay the same, or it may need to be increased when you are sick. ? You will need to test your blood glucose more often, generally every 2?4 hours. If you have type 1 diabetes, test your urine for ketones every 4 hours. If you have type 2 diabetes, test your urine for ketones as directed by your caregiver. ? Eat some form of food that contains carbohydrates. The carbohydrates can be in solid or liquid form. You should eat 45?50 grams of carbohydrates every 3?4 hours. ? Replace fluids if fever, vomiting, or diarrhea is present. Ask your caregiver for specific rehydration instructions. ? Watch carefully for the signs of ketoacidosis if you have type 1 diabetes. Call your caregiver if any of the following symptoms are present, especially in children: ? Moderate to large ketones in the urine along with a high blood glucose level. ? Severe nausea. ? Vomiting. ? Diarrhea. ? Abdominal pain. ? Rapid breathing. ? Drink extra liquids that do not contain sugar, such as water or sugar-free liquids, if your blood glucose is higher than 240 mg/dl. ? Be careful with [id number]-[id number] medicines. Read the labels. They may contain sugar or types of sugars that can raise your blood glucose. Food Choices for Illness All of the food choices below contain around 15 grams of carbohydrates. Plan ahead and keep some of these foods around. ? ? to ? cup carbonated beverage containing sugar. Carbonated beverages will usually be better tolerated if they are opened and left at room temperature for a few minutes. ? ? of a twin frozen ice pop. ? ? cup sweetened gelatin dessert. ? ? cup juice. ? ? cup ice cream or frozen yogurt. ? ? cup cooked cereal. ? ? cup sherbet. ? 1 cup broth-based soup with noodles or rice, reconstituted with water. ? 1 cup cream soup. ? ? cup regular custard. ? ? cup regular pudding. ? 1 cup sports drink. ? 1 cup plain yogurt. ? 1 slice toast. ? 6 squares saltine crackers. ? 5 vanilla wafers. SEEK MEDICAL CARE IF: ? You are unable to eat food or drink fluids for more than 6 hours. ? You have nausea and vomiting for more than 6 hours. ? Your blood glucose level is over 240 mg/dL. ? There is a change in mental status. ? You develop an additional serious illness. ? You have diarrhea for more than 6 hours. ? You have been sick or have had a fever for a couple of days and are not getting better. SEEK IMMEDIATE MEDICAL CARE IF: ? You have difficulty breathing. ? You have moderate to large ketone levels. Document Released: 07/21/2004 Document Revised: 04/12/2013 Document Reviewed: 01/26/2012 ExitCare? Patient Information ?2013 [employer]. Correction Insulin Your caregiver has decided you need insulin at home. You have been given a correctional scale (sliding scale) in case you need extra insulin when your blood sugar is too high (hyperglycemia ). The following instructions will assist you in how to use that correctional scale.? WHAT IS A CORRECTIONAL SCALE (SLIDING SCALE)? When you check your blood sugar, sometimes it will be higher than your caregiver wants it to be. You may need an extra dose of insulin to bring your blood sugar to your desired level (also known as your goal, target level, or normal level.) The correctional scale is prescribed by your caregiver based on your specific needs.? Your correctional scale has 2 parts. The first shows you a blood sugar range. The second part tells you how much extra insulin to give yourself if your blood sugar falls within this range. You will not need an extra dose of insulin if your blood glucose is in the desired range. You should always give yourself the normal amount of insulin your caregiver ordered as well. The most common time to check your blood sugar is before eating and at bedtime. Check with your caregiver so he or she can tell you what the best times are for you.?? WHY IS IT IMPORTANT TO KEEP YOUR BLOOD SUGAR LEVELS AT YOUR DESIRED LEVEL? It helps to prevent long-term complications of diabetes, such as eye disease, kidney failure, and other serious complications. WHAT TYPE OF INSULIN WILL YOU USE?? To help bring down blood sugars that are too high, your caregiver has prescribed a short-acting or a rapid-acting insulin. An example of a short-acting insulin would be Regular. Remember, you may also have a longer-acting insulin.? WHAT DO I NEED TO DO?? ? Check your blood sugar with your home blood glucose meter as recommended by your caregiver. ? Using your correctional scale, find the range your blood sugar lies in.? ? Look for the units of insulin that matches the blood sugar range. Give yourself the dose of correctional insulin your caregiver has prescribed. Always make sure you are using the right type of insulin.? ? Prior to the injection make sure you have food available that you can eat in the next 15 to 30 minutes. ? If your correctional insulin is rapid acting, start eating your meal within 15 minutes after you have given yourself the insulin injection. If you wait longer than 15 minutes to eat, your blood sugar might get too low. ? If your correctional insulin is short acting (Regular), start eating your meal within 30 minutes after you have given yourself the insulin injection. If you wait longer than 30 minutes to eat, your blood sugar might get too low. Symptoms of low blood sugar (hypoglycemia ) may include feeling shaky or weak, sweating a lot, not thinking straight, difficulty seeing, agitation, or crankiness. Check your blood sugar immediately and treat your results as directed by your caregiver.? ? Keep a log of your blood sugar results with the time you took the test and the amount of insulin that you injected. This information will help your caregiver manage your medications. ? Note on your log anything that may affect your blood sugars such as: ? Changes in normal exercise or activity. ? Changes in your normal schedule, such as staying up late, going on vacation, changing your diet, or holidays. ? New medications. This includes all medications. Some medications, even those that do not require a prescription, may cause high blood sugars. ? Illness or stress. ? Changes in when you actually took your medication. ? Changes in your meals, such as skipping a meal, a late meal, or dining out. ? Eating things that may affect blood glucose, such as snacks, larger meal portions than normal, or drinks with sugar.? ? Ask your caregiver any questions you have. WHY DO I NEED A CORRECTIONAL SCALE (SLIDING SCALE) IF I HAVE NEVER BEEN DIAGNOSED WITH DIABETES?? ? Keeping your blood glucose in range is important for your overall health.? ? You may have been prescribed medications that cause your blood glucose to be higher than normal.?? ? Your discharging caregiver can provide additional information as needed. WHEN SHOULD I SEEK MEDICAL CARE? ? If you have experienced hypoglycemia that you are unable to treat with your usual routine. ? You have questions about your care. ? You have persistent hypoglycemia or hyperglycemia.? Someone who lives with you should seek emergency medical care if you become unresponsive. MAKE SURE YOU: ? Understand these instructions. ? Will watch your condition. ? Will get help right away if you are not doing well or get worse. Document Released: 12/10/2011 Document Revised: 10/10/2012 Document Reviewed: 12/10/2011 ExitCare? Patient Information ?[address] [employer] [facility] Ambulatory Clinical Summaryo n 01-04-2020 Ambulatory Clinical Summary {[id number]}CD:[id number] [facility] Lab Reportson 01-04-2020 Lab Reports [id number]:127 [facility] CNOVon 06-13-2018 CNOV Office Visit (GASTMN) ----LINA DINERO ([id number]) 1965 FDate Time Provider Waktoxaqwq09/12/18 10:10 AM JUAN LUIS PARKER GASTMN During your visit today, we recorded the following information about you: Pulse Blood pressure Weight Height 82/minute 138/91 120.2 kg 1.626 Gretta Parker MD 06/14/2018 9:04 AM Signed [facility] NOTENAME: LINA DINERO CLINIC NO.: [id number] OF SERVICE: 06/13/2018OFFICE FOLLOWUPSUBJECTIVE: Lina was last seen by me on November 25, 2017. 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 Rheumatologic evaluation was negative. She wasseen by General Surgery to consider a biopsy. It was not felt that this wasnecessary and that the burden of inflammation was very low. In fact, thepatient does feel significantly improved with significantly less frequentsymptoms and less severe symptoms. She did have repeat imaging on May 20, 2018 showing minimal stranding in the small bowel without enlarged mesentericlymph nodes. The patient did have an EGD and colonoscopy on October 21, 2017.The colonoscopy was to the cecum and a well-prepped colon showed one 12 mmpolyp, otherwise normal small bowel mucosa. She did have an EGD at the sametime, which showed normal esophagus, stomach and duodenum. Biopsies showed inthe duodenum mild increased intraepithelial lymphocytes with normal villiantrum, mild chronic inflammation, no H. pylori. Random colon biopsy showedno diagnostic alteration and the polyp at 20 cm was hyperplastic withprolapse-type changes. The patient did have blood work for celiac, which wasnegative. Patient is currently feeling quite well.OBJECTIVE: Vital signs show a blood pressure of 138/91, a pulse of 82, aweight of 265 with the BMI of 45.49. Abdomen is soft, nontender.IMPRESSION AND RECOMMENDATIONS: Patient has minimal inflammation of the smallbowel, and in fact is much improved from previously. Clinically at this time,we will plan on virtual visit in 1 year. She knows that she should give us acall if she is having worsening symptoms during that period of time.DICTATED BY: Juan Luis Parker M.D.BB/AcusisD:06/13/2018 B# [id number] Luis Parker MD 06/13/2018 10:38 AM SignedPlease chante virtual Visit in 1 yearTranscription:Transcribe d Clinic Note (alfredo) ID: [id number] or: JUAN LUIS PARKERESigned by JUAN LUIS PARKER MD on 06/14/2018 at 9:04 AMDocument text: [facility] NOTENAME: LINA DINERO CLINIC NO.: [id number] OF SERVICE: 06/13/2018OFFICE FOLLOWUPSUBJECTIVE: Lina was last seen by me on November 25, 2017. There is ahistory of sclerosing mesenteritis. Rheumatologic evaluation wasnegative. She was seen by General Surgery to consider a biopsy. It wasnot felt that this was necessary and that the burden of inflammation wasvery low. In fact, the patient does feel significantly improved withsignificantly less frequent symptoms and less severe symptoms. She didhave repeat imaging on May 20, 2018 showing minimal stranding in thesmall bowel without enlarged mesenteric lymph nodes. The patient didhave an EGD and colonoscopy on October 21, 2017. The colonoscopy was tothe cecum and a well-prepped colon showed one 12 mm polyp, otherwisenormal small bowel mucosa. She did have an EGD at the same time, whichshowed normal esophagus, stomach and duodenum. Biopsies showed in theduodenum mild increased intraepithelial lymphocytes with normal villiantrum, mild chronic inflammation, no H. pylori. Random colon biopsyshowed no diagnostic alteration and the polyp at 20 cm was hyperplasticwith prolapse-type changes. The patient did have blood work for celiac,which was negative. Patient is currently feeling quite well.OBJECTIVE: Vital signs show a blood pressure of 138/91, a pulse of 82, aweight of 265 with the BMI of 45.49. Abdomen is soft, nontender.IMPRESSION AND RECOMMENDATIONS: Patient has minimal inflammation of thesmall bowel, and in fact is much improved from previously. Clinically atthis time, we will plan on virtual visit in 1 year. She knows that sheshould give us a call if she is having worsening symptoms during thatperiod of time.DICTATED BY: Juan Luis Parker M.D.BB/BaosD:06/13/2018 RADHA# [id number] document [id number] only Referring Provider: SELF [[id number]]Allergies As of Date: 06/13/2018(No Known Allergies)Date Reviewed: 06/13/2018Reviewed by: Juan Luis Parker - Fully AssessedReason for Visit: Established Patient [175] Cmt: IBSPrimary Visit Diagnosis:Abnormal MRI of abdomen [R93.5] Other Visit Diagnoses:Abdominal pain, unspecified abdominal location [R10.9] Sclerosing mesenteritis (HCC) [K65.4]Prescriptions as of 06/13/2018 Sig: CITALOPRAM 10 MG TABLET Take 10 mg by mouth once vadim* LEVOTHYROXINE 50 MCG TABLET Take 50 mcg by mouth daily be* ESTRADIOL 0.01% (0.1 MG/GRAM)* Use 1 g vaginally twice a wee* PHENTERMINE 37.5 MG CAPSULE Take 37.5 mg by mouth once da* GLUCAGON (HUMAN RECOMBINANT) * Inject 1 mg intravenously one*Problem List As Of Date 06/13/2018 Noted Resolved Obesity, Class III, BMI >= 40 [E66.01] INVALID FOR* 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 There is ahistory of sclerosing mesenteritis. Rheumatologic evaluation wasnegative. She was seen by General Surgery to consider a biopsy. It wasnot felt that this was necessary and that the burden of inflammation wasvery low. In fact, the patient does feel significantly improved withsignificantly less frequent symptoms and less severe symptoms. She didhave repeat imaging on May 20, 2018 showing minimal stranding in thesmall bowel without enlarged mesenteric lymph nodes. The patient didhave an EGD and colonoscopy on October 21, 2017. The colonoscopy was tothe cecum and a well-prepped colon showed one 12 mm polyp, otherwisenormal small bowel mucosa. She did have an EGD at the same time, whichshowed normal esophagus, stomach and duodenum. Biopsies showed in theduodenum mild increased intraepithelial lymphocytes with normal villiantrum, mild chronic inflammation, no H. pylori. Random colon biopsyshowed no diagnostic alteration and the polyp at 20 cm was hyperplasticwith prolapse-type changes. The patient did have blood work for celiac,which was negative. Patient is currently feeling quite well.OBJECTIVE: Vital signs show a blood pressure of 138/91, a pulse of 82, aweight of 265 with the BMI of 45.49. Abdomen is soft, nontender.IMPRESSION AND RECOMMENDATIONS: Patient has minimal inflammation of thesmall bowel, and in fact is much improved from previously. Clinically atthis time, we will plan on virtual visit in 1 year. She knows that sheshould give us a call if she is having worsening symptoms during thatperiod of time.DICTATED BY: Juan Luis Parker M.D.SHIRLEY/AcusisD:06/13/2018 [facility]# [id number] [facility] CNOVon 12-28-2017 CNOV Office Visit (GENSMN) ----LINA DINERO ([id number]) 1965 FDate Time Provider Department12/28/17 11:00 AM KJ WEAVER During your visit today, we recorded the following information about you: Temperature Pulse Respiration Blood pressure 98 degrees 76/minute 20/minute 122/72 Weight Height 117.5 kg 1.626 Slick Peterson MD, MD 12/28/2017 6:18 PM SignedSURGICAL SERVICES INITIAL CONSULTSERVICE DATE: 12/28/2017SERVICE TIME: 1200REASON FOR CONSULT: Mesenteric PanniculitisREQUESTING PHYSICIAN: [facility]PRAT[facility] CAB[facility]USRY CARE PHYSICIAN: DELTA ColladoubjectiveHISTORY OF PRESENT ILLNESS: Ms. McNelly is a 52 year old female with a historyof hypothyroidism, obesity (BMI 47), hx hysterectomy with unilateraloophorectomy with interval contralateral oophorectomy for ruptured cyst, UPJobstruction s/p Right dismembered pyeloplasty, VHR with mesh.She has had episodic RUQ abd pain for the last 10 years, episodes lasting 1-2days (as long as weeks), pain occurs multiple time/month. Has had extensiveworkup including most recently EGD/colo, MRE. MRE demonstrated no evidence ofchron's however demonstrated mesenteric panniculitis with prominent nodes.Referred to Gen Surg for biopsy.Denies current pain. Reports chronic diarrhea. During episodes n/v.PAST MEDICAL HISTORYDiagnosis Date- Chronic pain- Hypothyroid- ObesityNo past surgical history on file.No family history on file.Social HistorySubstance Use Topics- Smoking status: Former Smoker- Smokeless tobacco: Never Used- Alcohol use Yes Comment: SOCIAL(Not in a hospital admission)No current hospital medications on file.ALLERGIESNo Known AllergiesCOMPLETE REVIEW OF SYSTEMS:PAIN ASSESSMENT: not having painGENERAL: (-)weight loss, (-) malaise, (-) feversHEENT: Negative for frequent or significant headachesNECK: no lumpsRESPIRATORY: (-) cough, (-) dyspnea,(-) shortness of breathCARDIOVASCULAR: (-) chest painGI:(+) Abd pain, (+) nausea, (+) vomiting, (+) diarrhea, (-)Hematemesis/Hematachezia/ MelenaGU: No history of dysuriaNEURO: No history of headachesObjectivePHYSICAL EXAM:BP 122/72 Pulse 76 Temp (Src) 98 (Temporal Artery) Resp 20 Ht 5' 4 (1.63m) Wt 259 lb (117.5kg) BMI 44.44 kg/(m2).Physical Exam PerformedGENERAL: Alert, no distress, cooperative,SKIN: Skin color, texture, turgor normal.HEAD/SINUSES: No significant findingsLUNGS: Good diaphragmatic excursionCARDIAC: well perfusedABDOMEN: soft, non-tender, non-distendedEXTREMITIES: no edemaNEURO: [id number]:Diagnostic tests reviewed for today's visit:Most recent labs and imaging results.Impression/Recommend ations Ms. Dinero is a 52 year old female with a history of hypothyroidism, obesity(BMI 47), hx hysterectomy with unilateral oophorectomy with intervalcontralateral oophorectomy for ruptured cyst, UPJ obstruction s/p Rightdismembered pyeloplasty, VHR with mesh. She has an MRE c/w mesentericpanniculitis. The lymph nodes are quite small.Will discuss at [facility] conference next week about further strategy, anticipate CTguided bx, if not amenable to image bx, then will discuss with GI/Rheum aboutthe overall utility of bx, and may need serial imagingSIGNATURE: Frederic Peterson MD PATIENT NAME: Lina PierreyDATE: December 28, 2017 : 12:10 PM PAGER/CONTACT #: [id number] Erickson MD 12/28/2017 6:18 PM SignedThis office note has been dictated.Kj Erickson MDAttchristiano NoteI evaluated the patient and personally participated in the pierre components. 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] Other Visit Diagnosis:Obesity, Class III, BMI 40-49.9 (morbid obesity) (HCC) [E66.01]Prescriptions as of 12/28/2017 Sig: PHENTERMINE 37.5 MG CAPSULE Take 37.5 mg by mouth once da* CITALOPRAM 10 MG TABLET Take 10 mg by mouth once vadim* LEVOTHYROXINE 50 MCG TABLET Take 50 mcg by mouth daily be* ESTRADIOL 0.01% (0.1 MG/GRAM)* Use 1 g vaginally twice a wee* GLUCAGON (HUMAN RECOMBINANT) * Inject 1 mg intravenously one*Problem List As Of Date 12/28/2017 Noted Resolved Obesity, Class III, BMI >= 40 [E66.01] INVALID FOR* 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 I agree with the resident's findings and plan as documented and havediscussed the case and management of the patient's care with the resident.Signature: Kj Erickson MDDate: 12/28/2017Time: 6:17 PM Normal [facility] Protein mass conc HNO ID: [id number] thor: Frederic (ResSahil Gonzalez: (none)Author Type: ResidentType: Progress NotesFiled: 12/28/2017 6:18 PMNote Text:SURGICAL SERVICES INITIAL CONSULTSERVICE DATE: 12/28/2017SERVICE TIME: 1200REASON FOR CONSULT: Mesenteric PanniculitisREQUESTING PHYSICIAN: MinaPRAT[facility] CAB[facility]USRY CARE PHYSICIAN: DELTA ColladoubjectiveHISTORY OF PRESENT ILLNESS: Ms. Dinero is a 52 year old female with ahistory of hypothyroidism, obesity (BMI 47), hx hysterectomy withunilateral oophorectomy with interval contralateral oophorectomy forruptured cyst, UPJ obstruction s/p Right dismembered pyeloplasty, VHR withmesh.She has had episodic RUQ abd pain for the last 10 years, episodes lasting1-2 days (as long as weeks), pain occurs multiple time/month. Has hadextensive workup including most recently EGD/colo, MRE. MRE demonstratedno evidence of chron's however demonstrated mesenteric panniculitis withprominent nodes. Referred to Gen Surg for biopsy.Denies current pain. Reports chronic diarrhea. During episodes n/v.PAST MEDICAL HISTORYDiagnosis Date- Chronic pain- Hypothyroid- ObesityNo past surgical history on file.No family history on file.Social HistorySubstance Use Topics- Smoking status: Former Smoker- Smokeless tobacco: Never Used- Alcohol use Yes Comment: SOCIAL(Not in a hospital admission)No current hospital medications on file.ALLERGIESNo Known AllergiesCOMPLETE REVIEW OF SYSTEMS:PAIN ASSESSMENT: not having painGENERAL: (-)weight loss, (-) malaise, (-) feversHEENT: Negative for frequent or significant headachesNECK: no lumpsRESPIRATORY: (-) cough, (-) dyspnea,(-) shortness of breathCARDIOVASCULAR: (-) chest painGI:(+) Abd pain, (+) nausea, (+) vomiting, (+) diarrhea, (-)Hematemesis/Hematachezia/ MelenaGU: No history of dysuriaNEURO: No history of headachesObjectivePHYSICAL EXAM:BP 122/72 Pulse 76 Temp (Src) 98 (Temporal Artery) Resp 20 Ht 5'4 (1.63m) Wt 259 lb (117.5kg) BMI 44.44 kg/(m2).Physical Exam PerformedGENERAL: Alert, no distress, cooperative,SKIN: Skin color, texture, turgor normal.HEAD/SINUSES: No significant findingsLUNGS: Good diaphragmatic excursionCARDIAC: well perfusedABDOMEN: soft, non-tender, non-distendedEXTREMITIES: no edemaNEURO: [id number]:Diagnostic tests reviewed for today's visit:Most recent labs and imaging results.Impression/Recommend ations Ms. Dinero is a 52 year old female with a history of hypothyroidism,obesity (BMI 47), hx hysterectomy with unilateral oophorectomy withinterval contralateral oophorectomy for ruptured cyst, UPJ obstruction s/pRight dismembered pyeloplasty, VHR with mesh. She has an MRE c/wmesenteric panniculitis. The lymph nodes are quite small.Will discuss at [facility]B conference next week about further strategy,anticipate CT guided bx, if not amenable to image bx, then will discusswith GI/Rheum about the overall utility of bx, and may need serial imagingSIGNATURE: Frederic Peterson MD PATIENT NAME: Lina QuinonesATE: December 28, 2017 : 12:10 PM PAGER/CONTACT #: [id number] Normal [facility] Protein mass conc HNO ID: [id number] thor: Kj EricksonService: General SurgeryAuthor Type: PhysicianType: Progress NotesFiled: 12/30/2017 9:03 AMNote Text:The [facility] HospitalDepartment of General SurgeryDigestive Disease InstituteKj Baker M.D.Surgical EndoscopyAdvanced Laparoscopic and General Adgz[address] [place], [place] [address]Phone: Xvn: [phone]: CHRIS DINERO NO: [id number] OF SERVICE: 12/28/2017NEW OFFICE CONSULTATIONREFERRING PHYSICIAN: Juan Luis Parker M.D.CHIEF COMPLAINT: Abdominal pain.HISTORY OF PRESENT ILLNESS: Ms. Dinero is a very pleasant 31-lajw-laorabwnr with multiple prior abdominal operations including unilateraloophorectomy as well as UPJ obstruction, right dismembered pyloroplastyand ventral hernia repair with mesh as well as a hysterectomy whodeveloped right upper quadrant abdominal pain for the past ten years,worsening in the last several months. She ultimately underwent multipletesting and evaluation including upper and lower endoscopies and imagingstudies, the last of which was a CT and MRE that showed no evidence ofCrohn's disease, however, showed evidence of prominent mesenteric nodesas well as concern for mesenteric panniculitis. She was referred by for a biopsy to rule out malignancy. She denies any past medicalhistory of malignancy herself.PHYSICAL EXAMINATION: She is afebrile with normal vital signs. Herweight is 117 kg and height is 1.63 meters, corresponding to a body massindex of 44.44. Her abdomen is soft, nontender and nondistended.DIAGNOSTIC DATA: Imaging revealed the above-mentioned findings, however,I was not able to pull these up. Of note, the lymph nodes are less than1 cm and there was mild stranding consistent with mesentericpanniculitis.IMPRE SSION: A 52-year-old female with chronic abdominal pain of unclearetiology. It is doubtful that her mesenteric panniculitis is contributingto this and it is unclear to me at this point what a surgical biopsywould benefit her given the benign and small-appearing size of theselesions. Depsite that, we will present her case at our Upper GIHepatobiliary Conference with input from our radiologists given that ithas been challenging to review these images here. If at that time itdoes appear these are amenable to biopsy and this is indeed requested, itwould be reasonable to set up an image-guided biopsy; however, I thinkterri would be at high risk for surgical biopsy for multiple reasonsincluding her severe morbid obesity, the small size of these lesions aswell as her multiple prior operations. The patient is amenable to thisand we will update her after the conference.CARE COORDINATION: The majority of this visit was spent counselingregarding medical vs surgical management. Tsmu-mw-bznr time was 30minutes.KJ BAKER M.D.KELLY/089Audio #: [id number]: Dr. Parker via Price Ignite SystemsDate Dictated: 12/28/2017 16:56:09Date Typed: 12/29/2017 18:15:08Date Revised:12/30/2017 9:02 AM Normal [facility] Vicenta 12-06-2017 CNPN Telephone (RHEUMN) ----LINA DINERO ([id number]) 1965 FDate Time Provider Department12/06/17 IBETH BOSWELL During your visit today, we recorded the following information about you:Ibeth Boswell 12/06/2017 3:51 PM AddendumLabs normal exceptSlight increased C3, ESR and CRPWould recommend biopsy of abnormal areas on CT with additional IgG4 stains.Will confer with Dr. ParkerMyChart message to patient.Aidan Garcia As of Date: 12/06/2017(No Known Allergies)Date Reviewed: 11/25/2017Reviewed by: Juan Luis Parker - Loren AssessedReroma for Visit: Results [95]Prescriptions as of 12/06/2017 Sig: CITALOPRAM 10 MG TABLET Take 10 mg by mouth once vaidm* LEVOTHYROXINE 50 MCG TABLET Take 50 mcg by mouth daily be* ESTRADIOL 0.01% (0.1 MG/GRAM)* Use 1 g vaginally twice a wee* GLUCAGON (HUMAN RECOMBINANT) * Inject 1 mg intravenously one*Problem List As Of Date: 12/06/2017(None) Status:Closed by IBETH BOSWELL MD on 12/06/17 Normal [facility] CNPN Telephone (RHEUMN) ----LINA DINERO ([id number]) 1965 FDate Time Provider Department12/06/17 IBETH BOSWELL During your visit today, we recorded the following information about you:Ibeth Boswell MD 12/06/2017 3:47 PM SignedReviewed case with GI teamReferringWould recommend tissue from abnormal area on CT.Stain for IgG 4GI team will initiate process.Beronica Garcia MD 12/18/2017 12:48 PM SignedConsult set upAllan Garciaergies As of Date: 12/06/2017(No Known Allergies)Date Reviewed: 11/25/2017Reviewed by: Juan Luis Alcantar for Visit: Patient Conference [768]Prescriptions as of 12/06/2017 Sig: CITALOPRAM 10 MG TABLET Take 10 mg by mouth once vadim* LEVOTHYROXINE 50 MCG TABLET Take 50 mcg by mouth daily be* ESTRADIOL 0.01% (0.1 MG/GRAM)* Use 1 g vaginally twice a wee* GLUCAGON (HUMAN RECOMBINANT) * Inject 1 mg intravenously one*Problem List As Of Date: 12/06/2017(None) Status:Closed by IBETH BOSWELL MD on 12/06/17 Normal [facility] MIKE by IFA w/Reflexon 2017 MIKE Pattern Negative Normal [facility] Comment on above: Performed By: #### A NAIFR ####[address] [phone] MIKE Titer Negative Normal Negative [facility] Comment on above: Result Comment: Norm al range : negative at <1:80 serum dilution. Performed By: #### A NAIFR ####[address] [phone] Nuclear Ab IF titer (S) Negative Normal Negative [facility] Comment on above: Result Comment: Norm al range : negative at <1:80 serum dilution.Approximately 6% of patients with connective tissue diseases with low positive EIA values are negative by IFA. Recommend follow-up with specific antinuclear antibodies if clinically indicated. Performed By: #### A NAIFR ####[address] [phone] C-Reactive Proteinon 018 CRP mass conc 1.8 mg/dL High <0.9 [facility] Comment on above: Performed By: #### C BCDIF, WSR, C3COMP, C4COMP, CRP, RF, HREMOP, [id number], SEPGRX, MPASRM, INFTBG ####[address] [phone] C3 Complementon 11-25-2017 C3 Complement 185 mg/dL High 86-166 [facility] Comment on above: Performed By: #### C BCDIF, WSR, C3COMP, C4COMP, CRP, RF, HREMOP, DL9520, SEPGRX, MPASRM, INFTBG ####[place] [phone] C4 Complementon 11-25-2017 C4 Complement 34 mg/dL Normal 13-46 [facility] Comment on above: Performed By: #### C BCDIF, WSR, C3COMP, C4COMP, CRP, RF, HREMOP, CK9712, SEPGRX, MPASRM, INFTBG ####[place] [phone] CBC and Differentialon 11-25 Abs Baso 0.06 k/uL Normal <0.11 [facility] Comment on above: Performed By: #### C BCDIF, WSR, C3COMP, C4COMP, CRP, RF, HREMOP, UD0527, SEPGRX, MPASRM, INFTBG ####[place] [phone] Abs Lares 0.91 k/uL High <0.87 [facility] Comment on above: Performed By: #### C BCDIF, WSR, C3COMP, C4COMP, CRP, RF, HREMOP, KS4608, SEPGRX, MPASRM, INFTBG ####[place] [phone] Abs Neut 7.23 k/uL Normal 1.45-7.50 [facility] Comment on above: Performed By: #### C BCDIF, WSR, C3COMP, C4COMP, CRP, RF, HREMOP, QY5267, SEPGRX, MPASRM, INFTBG ####[place] [phone] Absolute nRBC <0.01 Normal <0.01 [facility] Comment on above: Performed By: #### C BCDIF, WSR, C3COMP, C4COMP, CRP, RF, HREMOP, UV1635, SEPGRX, MPASRM, INFTBG ####[place] [address] [address] [phone] Basophils/100 WBC Auto (Bld) 0.6 % Normal [facility] Comment on above: Performed By: #### C BCDIF, WSR, C3COMP, C4COMP, CRP, RF, HREMOP, ZE1163, SEPGRX, MPASRM, INFTBG ####[address] [place] [phone] DTYPE Auto Diff Normal [facility] Comment on above: Performed By: #### C BCDIF, WSR, C3COMP, C4COMP, CRP, RF, HREMOP, SS5862, SEPGRX, MPASRM, INFTBG ####[place] [phone] Eosinophils Auto #/vol (Bld) 0.36 10*3/uL Normal <0.46 [facility] Comment on above: Performed By: #### C BCDIF, WSR, C3COMP, C4COMP, CRP, RF, HREMOP, CX8768, SEPGRX, MPASRM, INFTBG ####[place] [phone] Eosinophils/100 WBC Auto (Bld) 3.3 % Normal [facility] Comment on above: Performed By: #### C BCDIF, WSR, C3COMP, C4COMP, CRP, RF, HREMOP, FD9411, SEPGRX, MPASRM, INFTBG ####[address] [place] [phone] Erythrocyte distribution width Auto Ratio (RBC) 13.9 % Normal 11.5-15.0 [facility] Comment on above: Performed By: #### C BCDIF, WSR, C3COMP, C4COMP, CRP, RF, HREMOP, PA7695, SEPGRX, MPASRM, INFTBG ####[address] [phone] Hematocrit Auto Volume Fraction (Bld) 42.2 % Normal 36.0-46.0 [facility] Comment on above: Performed By: #### C BCDIF, WSR, C3COMP, C4COMP, CRP, RF, HREMOP, OC5395, SEPGRX, MPASRM, INFTBG ####[place] [phone] Hemoglobin mass conc (Bld) 13.3 g/dL Normal 11.5-15.5 [facility] Comment on above: Performed By: #### C BCDIF, WSR, C3COMP, C4COMP, CRP, RF, HREMOP, YI3750, SEPGRX, MPASRM, INFTBG ####[place] [phone] Lymphocytes Auto #/vol (Bld) 2.31 10*3/uL Normal 1.00-4.00 [facility] Comment on above: Performed By: #### C BCDIF, WSR, C3COMP, C4COMP, CRP, RF, HREMOP, SX1984, SEPGRX, MPASRM, INFTBG ####[place] [phone] Lymphocytes/100 WBC Auto (Bld) 21.3 % Normal [facility] Comment on above: Performed By: #### C BCDIF, WSR, C3COMP, C4COMP, CRP, RF, HREMOP, BW5292, SEPGRX, MPASRM, INFTBG ####[address] [phone] MCH Auto Entitic mass (RBC) 28.4 pG Normal 26.0-34.0 [facility] Comment on above: Performed By: #### C BCDIF, WSR, C3COMP, C4COMP, CRP, RF, HREMOP, NT8163, SEPGRX, MPASRM, INFTBG ####[address] [place] [phone] MCHC Auto mass conc (RBC) 31.5 g/dL Normal 30.5-36.0 [facility] Comment on above: Performed By: #### C BCDIF, WSR, C3COMP, C4COMP, CRP, RF, HREMOP, NS9711, SEPGRX, MPASRM, INFTBG ####[address] [place] [phone] MCV Auto Entitic volume (RBC) 90.0 fL Normal 80.0-100.0 [facility] Comment on above: Performed By: #### C BCDIF, WSR, C3COMP, C4COMP, CRP, RF, HREMOP, MC3016, SEPGRX, MPASRM, INFTBG ####[place] [phone] Monocytes/100 WBC Auto (Bld) 8.4 % Normal [facility] Comment on above: Performed By: #### C BCDIF, WSR, C3COMP, C4COMP, CRP, RF, HREMOP, KM0601, SEPGRX, MPASRM, INFTBG ####[place] [phone] Neutrophils/100 WBC Auto (Bld) 66.4 % Normal [facility] Comment on above: Performed By: #### C BCDIF, WSR, C3COMP, C4COMP, CRP, RF, HREMOP, TP4840, SEPGRX, MPASRM, INFTBG ####[address] [place] [phone] NRBCs 0.0 /100 WBC Normal 0 [facility] Comment on above: Performed By: #### C BCDIF, WSR, C3COMP, C4COMP, CRP, RF, HREMOP, MJ5699, SEPGRX, MPASRM, INFTBG ####[address]CHolcombe, [place] [phone] Platelet mean volume Auto Entitic volume (Bld) 9.2 fL Normal 9.0-12.7 [facility] Comment on above: Performed By: #### C BCDIF, WSR, C3COMP, C4COMP, CRP, RF, HREMOP, YO1718, SEPGRX, MPASRM, INFTBG ####[address] [phone] Platelets Auto #/vol (Bld) 262 10*3/uL Normal 150-400 [facility] Comment on above: Performed By: #### C BCDIF, WSR, C3COMP, C4COMP, CRP, RF, HREMOP, II1305, SEPGRX, MPASRM, INFTBG ####[address] [phone] RBC Auto #/vol (Bld) 4.69 10*6/uL Normal 3.90-5.20 [facility] Comment on above: Performed By: #### C BCDIF, WSR, C3COMP, C4COMP, CRP, RF, HREMOP, BZ4178, SEPGRX, MPASRM, INFTBG ####[address] [phone] WBC Auto #/vol (Bld) 10.87 10*3/uL Normal 3.70-11.00 [facility] Comment on above: Performed By: #### C BCDIF, WSR, C3COMP, C4COMP, CRP, RF, HREMOP, DG3771, SEPGRX, MPASRM, INFTBG ####[address] [phone] CNOVon 11-25-2017 CNOV Office Visit (GASTMN) ----LINA DINERO ([id number]) 1965 FDate Time Provider Department11/25/17 2:00 PM JUAN LUIS PARKER GASTMN During your visit today, we recorded the following information about you: Temperature Pulse Blood pressure Weight 98.5 degrees 84/minute 113/58 124.3 kg Height 1.626 Gretta Parker MD 11/25/2017 3:06 PM SignedPlease [facility] above. 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] Other Visit Diagnoses:RUQ abdominal pain [R10.11] Morbid obesity (HCC) [E66.01]Order(s):GLIADIN (DEAMINATED) ABS [SQGLIAD] Order #: [id number] FUTURE IGA BLD [SQIGA] Order #: [id number] FUTURE TRANSGLUTAMINASE IGA [SQTGIGA] Order #: [id number] FUTUREPrescriptions as of 11/25/2017 Sig: CITALOPRAM 10 MG TABLET Take 10 mg by mouth once vadim* LEVOTHYROXINE 50 MCG TABLET Take 50 mcg by mouth daily be* ESTRADIOL 0.01% (0.1 MG/GRAM)* Use 1 g vaginally twice a wee* GLUCAGON (HUMAN RECOMBINANT) * Inject 1 mg intravenously one*Problem List As Of Date: 11/25/2017(None) Other instructions from your clinician: Please chante above. I will call with results. Status:Closed by JUAN LUIS PARKER MD on 11/26/17 [facility] CNOV Office Visit (RHEUMN) ----LINA DINERO ([id number]) 1965 FDate Time Provider Department11/25/17 9:40 AM IBTEH BOSWELL During your visit today, we recorded the following information about you: Temperature Pulse Blood pressure Weight 98.4 degrees 75/minute 140/86 123.4 kgMatthong Boswell MD 11/25/2017 1:17 PM Signed Rheumatology Clinic NoteOutpatient Visit Date: November 25, 2017CC: Concern for mesenteric panniculitisReferring Physician: DELTA Leijaubjective: 52 year old female with PMH significant for chronic pain,hypothyroidism, and obesity (BMI 47), multiple open abdominal surgeries (seebelow).She was referred to the rheumatology clinic by her provisioning specialist due toconcerning findings on her MRI that could be consistent with sclerosingmesenteritis. She saw GI at [facility] recently for workup of chronic abdominalsymptoms. She reports flares of RUQ pain over the past ten years. The flareslast for 1-4 days and are associated with nausea, bloating, and vomiting. Thepain can be as severe as 9/10 at their worst. She also reports daily diarrheawith liquid stools 8-10 times per day. She occasionally notices dark lookingstools or streaks of BRB. She also has chronic dull LLQ pain. She has chronicnight sweats for which she takes Celexa. She has frequent arthralgias in herhips, lower back, and shoulders, which is chronic for the past ~10 years. Shedenies any fevers, chills, rashes, dry eyes/mouth.Her GI doctor ordered an EGD and colonoscopy, both of which were largelyunremarkable. MRI abdomen showed some mild haziness in the mesentery withprominent mesenteric lymph nodes which raised concern for mesentericpanniculitis (see below). Her CMP was unremarkable, but there are no other labsin the [facility] system.MRI abdomen read:IMPRESSION:NO ACTIVE INFLAMMATORY SMALL BOWEL CROHN'S DISEASE.MILD HAZINESS IN THE MESENTERY WITH PROMINENT MESENTERIC LYMPH NODESRAISES CONCERN FOR MESENTERIC PANNICULITIS. ?NO LYMPHADENOPATHY.PMHxPAST MEDICAL HISTORYDiagnosis Date- Chronic pain- Hypothyroid- ObesityMedications:Current Outpatient Prescriptions on File Prior to Visit:citalopram hydrobromide (CELEXA) 10 mg tablet Take 10 mg by mouth once daily.levothyroxine (SYNTHROID) 50 mcg tablet Take 50 mcg by mouth daily beforebreakfast.estradiol (ESTRACE) 0.01 % (0.1 mg/gram) vaginal cream Use 1 g vaginally twicea week.glucagon (GLUCAGEN) 1 mg/mL injection Inject 1 mg intravenously one time onlyfor 1 dose. For MRI Enterography, Inject 1 mg intravenously, as directed. Slowpush at the appropriate time during MRI ScanAllergies:ALLERGIESNo Known AllergiesFamily History:- Breast cancer in mom and aunts- MGM ovarian cancer.- Father with prostate cancer.- Sister with melanoma.- Paternal aunt and uncle in their teens from medical issues - patientdoes not know cause.Social HistorySocial HistorySubstance Use Topics- Smoking status: Former Smoker- Smokeless tobacco: Never Used- Alcohol use Yes Comment: SOCIALPAST SURGICAL HX:Open UVJ 1999Open hysterectomy 2009Ventral hernia - s/p mesh placement (2011)Abdominal surgery 2013 for ruptured ovarian cystWas hospitalized for abdominal pain in AugustREVIEW OF SYSTEMS:November 25, 2017CONSTITUTIONAL:Fever: NoFatigue: YesPain: NoEYES:Pain: NoRedness: NoLoss of vision: YesDryness: NoEAR, NOSE, MOUTH, THROAT:Nose bleeds: NoHearing loss: YesSores in mouth: NoSwallowing problems: YesDry mouth: NoCARDIOVASCULAR:Chest pain: NoSwelling in the feet or legs: YesRESPIRATORY:Shortness of breath: YesPain with breathing: NoChronic cough: NoCoughing up blood: No,GASTROINTESTINAL:Heartbur n: NoNausea: YesDiarrhea: YesBlood in the stool or black stool: YesAbdominal pain: YesGENITOURINARY:Blood in urine: YesPain or burning on urination: No]MUSCULOSKELETAL:Joint pain: YesJoint swelling: YesMorning stiffness in joints: YesMuscle weakness: YesBack pain: YesSKIN:Rashes: NoSun sensitive rashes: NoColor changes of hands or feet in the cold: NoHair loss: NoNail changes: NoNEUROLOGICAL:Headaches: YesDizziness: NoNumbness or tingling: YesMemory loss: YesSeizures: NoHEMATOLOGIC/LYMPHATIC:Swol joon glands: NoAnemia: YesALLERGIES/IMMUNOLOGIC:All ergies (other than medications): NoIncreased susceptibility to infection: NoKNOWN MEDICAL CONDITIONS:Diabetes: NoThyroid disease: YesHigh blood pressure: NoOBJECTIVE:Physical exam:BP 140/86 Pulse 75 Temp (Src) 98.4 (Temporal Artery) Ht [refused[ (0.00m) Wt 272 lb 1.6 oz (123.4kg)General: Alert and oriented, in no acute distress, pleasant mood. Morbidly obeseHEENT: Normocephalic, EOMI, PERRLA, sclera anicteric, no conjunctival pallor,nares/OP clearNeck: Supple, nontender, no lymphadenopathy, no JVD, trachea midline, nothyromegalyRespiratory: Lungs clear to auscultation bilaterally, no wheeze/rhonchi, easywork of breathingCardiovascular: RRR, nml S1/S2, no m/r/g, nondisplaced PMIAbdomen: Soft, nontender, nondistended, no masses/organomegaly, NABSSkin: Healthy, intact, no ulcerations, no rashesExtremities: Full ROM, no LE edema, 2+ peripheral pulses, warm and well perfusedNeuro: CN II-XII grossly intact, 5/5 strength throughoutASSESSMENT/PLAN:As sessment: She was referred to the rheumatology clinic by hergastroenterologist due to concerning findings on her MRI that 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.Plan:- CBC- ESR, CRP- SPEP, UPEP- IgG4- MIKE with reflex- Consider mesenteric biopsyGianna Yeboah MD, MPH, PGY-3Internal Medicine Residency ProgramMercy Health Allen Hospital11/25/20179:54 AM [facility] MATOLOGY ATTENDING STAFF NOTE:I reviewed the history and physical obtained and documented by thefellow/resident.I personally participated in the pierre components of the visit.The following comments revise or confirm the relevant pierre elements of thefellow's/resident's note:HISTORY:As outlined above.Has multiple health issues / symptomsHaving chronic GI symptoms; getting worseAbdominal pains. DiarrheaSaw GI here and had testing with MR abdomen with possible mesenteriticpanniculitis with prominent LNsNo fevers, weight lossPHYSICAL EXAM:As outlined above.ObeseAbdominal exam very difficult due to her sizeLungs clearHeart RRRNo joint swellingNo rashesReviewed EMRReviewed MR abdomenReviewed EGD and colonoscopyComponent Latest Ref Rng ANDamp; Units 08/24/2017Protein, Total 6.3 - 8.0 g/dL 6.8Albumin 3.9 - 4.9 g/dL 3.9Calcium 8.5 - 10.2 mg/dL 9.6Bilirubin, Total 0.2 - 1.3 mg/dL 0.2Alkaline Phosphatase 32 - 117 U/L 77AST 13 - 35 U/L 23Glucose 74 - 99 mg/dL 76BUN 7 - 21 mg/dL 16Creatinine 0.58 - 0.96 mg/dL 0.93Sodium 136 - 144 mmol/L 139Potassium 3.7 - 5.1 mmol/L 4.6Chloride 97 - 105 mmol/L 99CO2 22 - 30 mmol/L 30Anion Gap 9 - 18 mmol/L 10ALT 7 - 38 U/L 13eGFR- ANDgt;60eGFR-All Other Races . ANDgt;60I discussed the case and the impression and plan with the fellow/resident.PROBLEM LIST:1. Abnormal MRI abdomen with possible mesenteric panniculitis and prominent LNs2. Multiple GI complaints3. MSK pains4. Obesity5. 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 No signs or symptoms oflymphoma or paraneoplastic syndrome. No clear signs of a chronic infectiousprocess.RECOMMENDA TIONS / PLANS:? Impression and recommendations/plans discussed with the patient in person.? Old records and films reviewed as noted above.? Consult will be sent to the requesting physician and/or the patient.? Laboratory tests:o As outlined in orders? Other tests:o May need tissue biopsy with path, IgG4 staining and cultures? Consultations:o She is seeing GI back today? Medication changes:o No medications were altered or prescribed by me today.o Will need to define role for immunosuppression.? Other:o Patient should have updated all of her age-appropriate malignancy screens andvaccinations.o Case discussed today with GI team? 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] Other Visit Diagnoses:Abdominal pain, unspecified abdominal location [R10.9] Diarrhea, unspecified type [R19.7]Order(s):CBC + DIFF [SQCBCDIF] Order #: [id number] FUTURE SED RATE WESTERGREN [SQWSR] Order #: [id number] FUTURE C-REACTIVE PROTEIN (CRP) [SQCRP] Order #: [id number] FUTURE MONOCLONAL PROT BLD W/INTERP [SQMPASRM] Order #: [id number] FUTURE MONOCLONAL PROT UR W/INTERP [SQURMPA] Order #: [id number] FUTURE BLOOD TB SCREEN [SQINFTBG] Order #: [id number] FUTURE PROT ELECT WITH ELIAN AND INTERP [SQSEPGRX] Order #: [id number] FUTURE RHEUMATOID FACTOR BL [SQRF] Order #: [id number] FUTURE C3 COMPLEMENT BLD [ADD5NRKA] Order #: [id number] FUTURE C4 COMPLEMENT BLD [KPV3WCQQ] Order #: [id number] FUTURE IGG SUBCLASS 1,2,3,4 [TMON7514] Order #: [id number] FUTURE HEP REMOTE PANEL BL [SQHREMOP] Order #: [id number] FUTURE MIKE BY IFA WITH REFLEX [SQANAIFR] Order #: [id number] FUTUREPrescriptions as of 11/25/2017 Sig: CITALOPRAM 10 MG TABLET Take 10 mg by mouth once vadim* LEVOTHYROXINE 50 MCG TABLET Take 50 mcg by mouth daily be* ESTRADIOL 0.01% (0.1 MG/GRAM)* Use 1 g vaginally twice a wee* GLUCAGON (HUMAN RECOMBINANT) * Inject 1 mg intravenously one*Problem List As Of Date: 11/25/2017(None)Follow-up and Disposition History RecordedLetter [id number] Streethong Boswell M.D., LeolaCSebastienRSebastienDirector, Clinic OperationsDepartment of Rheumaticand Immunologic Diseases Office: [facility]/[phone]: [phone]: [address] [place], [place] [phone]/25/2017Juan Luis Parker MD[address] [place], [place] [id number]:Lina PierreyCCF # [id number]: [address] Parker:Thank you for your referral of Lina Dinero. I had the pleasure of seeingher for a rheumatology consultation on 11/25/17. I have enclosed a copy ofthe consult note and appropriate data for your review.Please do not hesitate to call me if you have any concerns or questions.Sincerely,Ibeth Boswell M.D., F.A.CSebastienRSebastienEnc: Consult note. Status:Closed by IBETH BOSWELL MD on 11/25/17 Normal [facility] Gliadin(Deamin.)Abson 2017 Gliad IgA Ab 8 Units Normal <20 [facility] Comment on above: Result Comment: Nega tive : < 20 UnitsWeak Positive : 20 - 30 UnitsModerate Pos to Strong Pos: >30 UnitsThe following results were obtained with the [employer] QUANT[employer] Lite Gliadin IgA JUD. Gliadin IgA values obtained with different manufacturers' assay methods may not be used interchangeably. The magnitude of the reported IgA levels cannot be correlated to an endpoint titer. Performed By: #### G OWEN TGIGA, IGA ####[place] [address] Gliad IgG Ab 5 Units Normal <20 [facility] Comment on above: Result Comment: Nega tive : < 20 UnitsWeak Positive : 20 - 30 UnitsModerate Pos to Strong Pos: >30 UnitsThe following results were obtained with the [employer] QUANT[employer] Lite Gliadin IgG JUD. Gliadin IgG values obtained with different manufacturers' assay methods may not be used interchangeably. The magnitude of the reported IgG levels cannot be correlated to an endpoint titer. Performed By: #### G FREDRICKD, TGIGA, IGA ####[place] [address] Hepatitis Remote Panelon Hep B Core Ab,Total Negative Normal Negative [facility] Comment on above: Performed By: #### C BCDIF, WSR, C3COMP, C4COMP, CRP, RF, HREMOP, [id number], SEPGRX, MPASRM, INFTBG ####[place] [address] Hepatitis C Ab IA Negative Normal Negative [facility] Comment on above: Performed By: #### C BCDIF, WSR, C3COMP, C4COMP, CRP, RF, HREMOP, [id number], SEPGRX, MPASRM, INFTBG ####[place] [id number] [place], [place] [phone] HepB Surface Ab,Qual Negative Normal Negative [facility] Comment on above: Result Comment: NEGA TIVE Performed By: #### C BCDIF, WSR, C3COMP, C4COMP, CRP, RF, HREMOP, [id number], SEPGRX, MPASRM, INFTBG ####[address] [phone] IgAon 11-25-2017 IgA mass conc 248 mg/dL Normal 78-391 [facility] Comment on above: Performed By: #### G LIAD, TGIGA, IGA ####[address] [phone] IgG Subclass 1,2,3,4on 11-25 IgG Subclass 1 804.4 mg/dL Normal 396.0-965.0 [facility] Comment on above: Performed By: #### C BCDIF, WSR, C3COMP, C4COMP, CRP, RF, HREMOP, [id number], SEPGRX, MPASRM, INFTBG ####[address] [phone] IgG Subclass 2 375.2 mg/dL Normal 176.0-698.0 [facility] Comment on above: Performed By: #### C BCDIF, WSR, C3COMP, C4COMP, CRP, RF, HREMOP, AS4485, SEPGRX, MPASRM, INFTBG ####[place] [id number] [place], [place] [phone] IgG Subclass 3 24.5 mg/dL Normal 16.0-134.0 [facility] Comment on above: Performed By: #### C BCDIF, WSR, C3COMP, C4COMP, CRP, RF, HREMOP, [id number], SEPGRX, MPASRM, INFTBG ####[place] [id number] [place], [place] [phone] IgG Subclass 4 10.9 mg/dL Normal 5.0-131.0 [facility] Comment on above: Performed By: #### C BCDIF, WSR, C3COMP, C4COMP, CRP, RF, HREMOP, [id number], SEPGRX, MPASRM, INFTBG ####[address] [phone] Monoclonal Prot Uron 018 Protein mass conc No M protein is identified. Normal No M protein is identified. [facility] Comment on above: Performed By: #### U RMPA ####[address] [phone] [place] Staff Review Reviewed by Carlito Coffey MD ([id number]) Normal [facility] Comment on above: Performed By: #### U RMPA ####[address] [phone] Monoclonl Protein,Blon 11-25 MPA Milli/Vicente Ratio 1.81 Normal 1-3 [facility] Comment on above: Performed By: #### C BCDIF, WSR, C3COMP, C4COMP, CRP, RF, HREMOP, VA4972, SEPGRX, MPASRM, INFTBG ####[address] [phone] MPA Serum IgA 285 mg/dL Normal 78-391 [facility] Comment on above: Performed By: #### C BCDIF, WSR, C3COMP, C4COMP, CRP, RF, HREMOP, [id number], SEPGRX, MPASRM, INFTBG ####[place] [address] [place], [place] [phone] MPA Serum IgG 1260 mg/dL Normal 717-1411 [facility] Comment on above: Performed By: #### C BCDIF, WSR, C3COMP, C4COMP, CRP, RF, HREMOP, BX6920, SEPGRX, MPASRM, INFTBG ####[place] [phone] MPA Serum IgM 153 mg/dL Normal 53-334 [facility] Comment on above: Performed By: #### C BCDIF, WSR, C3COMP, C4COMP, CRP, RF, HREMOP, [id number], SEPGRX, MPASRM, INFTBG ####[place] [phone] Protein mass conc No M protein is identified. Normal No M protein is identified. [facility] Comment on above: Performed By: #### C BCDIF, WSR, C3COMP, C4COMP, CRP, RF, HREMOP, US4942, SEPGRX, MPASRM, INFTBG ####[place] [phone] Serum Lutcher 1090 mg/dL Normal 534-1267 [facility] Comment on above: Performed By: #### C BCDIF, WSR, C3COMP, C4COMP, CRP, RF, HREMOP, [id number], SEPGRX, MPASRM, INFTBG ####[place] [phone] Serum Lambda 603 mg/dL Normal 253-653 [facility] Comment on above: Performed By: #### C BCDIF, WSR, C3COMP, C4COMP, CRP, RF, HREMOP, [id number], SEPGRX, MPASRM, INFTBG ####[place] [phone] Staff Review Reviewed by Carlito Coffey MD ([id number]) Normal [facility] Comment on above: Performed By: #### C BCDIF, WSR, C3COMP, C4COMP, CRP, RF, HREMOP, RF3443, SEPGRX, MPASRM, INFTBG ####[facility] [place], [place] [phone] PROGRESSon 11-25-2017 Protein mass conc HNO ID: [id number] thor: Ibeth Nietoe: (none)Author Type: PhysicianType: Progress NotesFiled: 11/25/2017 1:17 PMNote Text: Rheumatology Clinic NoteOutpatient Visit Date: November 25, 2017CC: Concern for mesenteric panniculitisReferring Physician: DELTA Leijaubjective: 52 year old female with PMH significant for chronic pain,hypothyroidism, and obesity (BMI 47), multiple open abdominal surgeries(see below).She was referred to the rheumatology clinic by her provisioning specialist dueto concerning findings on her MRI that could be consistent with sclerosingmesenteritis. She saw GI at [facility] recently for workup of chronic abdominalsymptoms. She reports flares of RUQ pain over the past ten years. Theflares last for 1-4 days and are associated with nausea, bloating, andvomiting. The pain can be as severe as 9/10 at their worst. She alsoreports daily diarrhea with liquid stools 8-10 times per day. Sheoccasionally notices dark looking stools or streaks of BRB. She also haschronic dull LLQ pain. She has chronic night sweats for which she takesCelexa. She has frequent arthralgias in her hips, lower back, andshoulders, which is chronic for the past ~10 years. She denies any fevers,chills, rashes, dry eyes/mouth.Her GI doctor ordered an EGD and colonoscopy, both of which were largelyunremarkable. MRI abdomen showed some mild haziness in the mesentery withprominent mesenteric lymph nodes which raised concern for mesentericpanniculitis (see below). Her CMP was unremarkable, but there are no otherlabs in the [facility] system.MRI abdomen read:IMPRESSION:NO ACTIVE INFLAMMATORY SMALL BOWEL CROHN'S DISEASE.MILD HAZINESS IN THE MESENTERY WITH PROMINENT MESENTERIC LYMPH NODESRAISES CONCERN FOR MESENTERIC PANNICULITIS. ?NO LYMPHADENOPATHY.PMHxPAST MEDICAL HISTORYDiagnosis Date- Chronic pain- Hypothyroid- ObesityMedications:Current Outpatient Prescriptions on File Prior to Visit:citalopram hydrobromide (CELEXA) 10 mg tablet Take 10 mg by mouth oncedaily.levothyroxine (SYNTHROID) 50 mcg tablet Take 50 mcg by mouth daily beforebreakfast.estradiol (ESTRACE) 0.01 % (0.1 mg/gram) vaginal cream Use 1 g vaginallytwice a week.glucagon (GLUCAGEN) 1 mg/mL injection Inject 1 mg intravenously one timeonly for 1 dose. For MRI Enterography, Inject 1 mg intravenously, asdirected. Slow push at the appropriate time during MRI ScanAllergies:ALLERGIESNo Known AllergiesFamily History:- Breast cancer in mom and aunts- MGM ovarian cancer.- Father with prostate cancer.- Sister with melanoma.- Paternal aunt and uncle in their teens from medical issues -patient does not know cause.Social HistorySocial HistorySubstance Use Topics- Smoking status: Former Smoker- Smokeless tobacco: Never Used- Alcohol use Yes Comment: SOCIALPAST SURGICAL HX:Open UVJ 1999Open hysterectomy 2009Ventral hernia - s/p mesh placement (2011)Abdominal surgery 2013 for ruptured ovarian cystWas hospitalized for abdominal pain in AugustREVIEW OF SYSTEMS:November 25, 2017CONSTITUTIONAL:Fever: NoFatigue: YesPain: NoEYES:Pain: NoRedness: NoLoss of vision: YesDryness: NoEAR, NOSE, MOUTH, THROAT:Nose bleeds: NoHearing loss: YesSores in mouth: NoSwallowing problems: YesDry mouth: NoCARDIOVASCULAR:Chest pain: NoSwelling in the feet or legs: YesRESPIRATORY:Shortness of breath: YesPain with breathing: NoChronic cough: NoCoughing up blood: No,GASTROINTESTINAL:Heartbur n: NoNausea: YesDiarrhea: YesBlood in the stool or black stool: YesAbdominal pain: YesGENITOURINARY:Blood in urine: YesPain or burning on urination: No]MUSCULOSKELETAL:Joint pain: YesJoint swelling: YesMorning stiffness in joints: YesMuscle weakness: YesBack pain: YesSKIN:Rashes: NoSun sensitive rashes: NoColor changes of hands or feet in the cold: NoHair loss: NoNail changes: NoNEUROLOGICAL:Headaches: YesDizziness: NoNumbness or tingling: YesMemory loss: YesSeizures: NoHEMATOLOGIC/LYMPHATIC:Swol joon glands: NoAnemia: YesALLERGIES/IMMUNOLOGIC:All ergies (other than medications): NoIncreased susceptibility to infection: NoKNOWN MEDICAL CONDITIONS:Diabetes: NoThyroid disease: YesHigh blood pressure: NoOBJECTIVE:Physical exam:BP 140/86 Pulse 75 Temp (Src) 98.4 (Temporal Artery) Ht [refused[(0.00m) Wt 272 lb 1.6 oz (123.4kg)General: Alert and oriented, in no acute distress, pleasant mood. MorbidlyobeseHEENT: Normocephalic, EOMI, PERRLA, sclera anicteric, no conjunctivalpallor, nares/OP clearNeck: Supple, nontender, no lymphadenopathy, no JVD, trachea midline, nothyromegalyRespiratory: Lungs clear to auscultation bilaterally, no wheeze/rhonchi,easy work of breathingCardiovascular: RRR, nml S1/S2, no m/r/g, nondisplaced PMIAbdomen: Soft, nontender, nondistended, no masses/organomegaly, NABSSkin: Healthy, intact, no ulcerations, no rashesExtremities: Full ROM, no LE edema, 2+ peripheral pulses, warm and wellperfusedNeuro: CN II-XII grossly intact, 5/5 strength throughoutASSESSMENT/PLAN:As sessment: She was referred to the rheumatology clinic by hergastroenterologist due to concerning findings on her MRI that 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.Plan:- CBC- ESR, CRP- SPEP, UPEP- IgG4- MIKE with reflex- Consider mesenteric biopsyGianna Yeboah MD, MPH, PGY-3Internal Medicine Residency ProgramMercy Health Allen Hospital11/25/20179:54 AM [facility] ATTENDING STAFF NOTE:I reviewed the history and physical obtained and documented by thefellow/resident.I personally participated in the pierre components of the visit.The following comments revise or confirm the relevant pierre elements of thefellow's/resident's note:HISTORY:As outlined above.Has multiple health issues / symptomsHaving chronic GI symptoms; getting worseAbdominal pains. DiarrheaSaw GI here and had testing with MR abdomen with possible mesenteriticpanniculitis with prominent LNsNo fevers, weight lossPHYSICAL EXAM:As outlined above.ObeseAbdominal exam very difficult due to her sizeLungs clearHeart RRRNo joint swellingNo rashesReviewed EMRReviewed MR abdomenReviewed EGD and colonoscopyComponent Latest Ref Rng AND Units 08/24/2017Protein, Total 6.3 - 8.0 g/dL 6.8Albumin 3.9 - 4.9 g/dL 3.9Calcium 8.5 - 10.2 mg/dL 9.6Bilirubin, Total 0.2 - 1.3 mg/dL 0.2Alkaline Phosphatase 32 - 117 U/L 77AST 13 - 35 U/L 23Glucose 74 - 99 mg/dL 76BUN 7 - 21 mg/dL 16Creatinine 0.58 - 0.96 mg/dL 0.93Sodium 136 - 144 mmol/L 139Potassium 3.7 - 5.1 mmol/L 4.6Chloride 97 - 105 mmol/L 99CO2 22 - 30 mmol/L 30Anion Gap 9 - 18 mmol/L 10ALT 7 - 38 U/L 13eGFR- >60eGFR-All Other Races . >60I discussed the case and the impression and plan with the fellow/resident.PROBLEM LIST:1. Abnormal MRI abdomen with possible mesenteric panniculitis andprominent LNs2. Multiple GI complaints3. MSK pains4. Obesity5. 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 No signs or symptoms oflymphoma or paraneoplastic syndrome. No clear signs of a chronicinfectious process.RECOMMENDATIONS / PLANS:? Impression and recommendations/plans discussed with the patient inperson.? Old records and films reviewed as noted above.? Consult will be sent to the requesting physician and/or the patient.? Laboratory tests:o As outlined in orders? Other tests:o May need tissue biopsy with path, IgG4 staining and cultures? Consultations:o She is seeing GI back today? Medication changes:o No medications were altered or prescribed by me today.o Will need to define role for immunosuppression.? Other:o Patient should have updated all of her age-appropriate malignancyscreens and vaccinations.o Case discussed today with GI team? Return Visit:o To be determinedo I will contact her with test resultsElectronically signed by:Ibeth Boswell MD Normal [facility] Prot Elect with IFEon 2017 Albumin mass conc 3.49 g/dL Normal 3.37-4.23 [facility] Comment on above: Performed By: #### C BCDIF, WSR, C3COMP, C4COMP, CRP, RF, HREMOP, [id number], SEPGRX, MPASRM, INFTBG ####[facility] [address] [place], [place] [phone] Alpha 1 Globulin 0.21 gm/dL Normal 0.18-0.31 [facility] Comment on above: Performed By: #### C BCDIF, WSR, C3COMP, C4COMP, CRP, RF, HREMOP, [id number], SEPGRX, MPASRM, INFTBG ####[facility] [place], [place] [phone] Alpha 2 Globulin 0.91 gm/dL Normal 0.52-0.97 [facility] Comment on above: Performed By: #### C BCDIF, WSR, C3COMP, C4COMP, CRP, RF, HREMOP, [id number], SEPGRX, MPASRM, INFTBG ####[place] [phone] Beta Globulin 1.26 gm/dL Normal 0.84-1.36 [facility] Comment on above: Performed By: #### C BCDIF, WSR, C3COMP, C4COMP, CRP, RF, HREMOP, [id number], SEPGRX, MPASRM, INFTBG ####[place] [phone] Comment Monoclonal Protein a nalysis (immunofixation) is not indicated. Normal [facility] Comment on above: Performed By: #### C BCDIF, WSR, C3COMP, C4COMP, CRP, RF, HREMOP, [id number], SEPGRX, MPASRM, INFTBG ####[place] [phone] Gamma Globulin 1.53 gm/dL High 0.70-1.44 [facility] Comment on above: Performed By: #### C BCDIF, WSR, C3COMP, C4COMP, CRP, RF, HREMOP, GW5552, SEPGRX, MPASRM, INFTBG ####[place] [phone] Interpretation SEE COMMENT Normal [facility] Comment on above: Result Comment: No d efinitive M protein is identified on protein electrophoresis. Performed By: #### C BCDIF, WSR, C3COMP, C4COMP, CRP, RF, HREMOP, BE1543, SEPGRX, MPASRM, INFTBG ####[place] [phone] M Regulo Concentratn 0.00 gm/dL Normal 0.00 [facility] Comment on above: Performed By: #### C BCDIF, WSR, C3COMP, C4COMP, CRP, RF, HREMOP, [id number], SEPGRX, MPASRM, INFTBG ####[address] [phone] Protein mass conc N/A Normal [facility] Comment on above: Performed By: #### C BCDIF, WSR, C3COMP, C4COMP, CRP, RF, HREMOP, OF3579, SEPGRX, MPASRM, INFTBG ####[address] [phone] Protein mass conc 7.4 g/dL Normal 6.0-8.4 [facility] Comment on above: Performed By: #### C BCDIF, WSR, C3COMP, C4COMP, CRP, RF, HREMOP, [id number], SEPGRX, MPASRM, INFTBG ####[address] [phone] [facility] Staff Review Reviewed by Carlito Coffey MD ([id number]) [facility] Comment on above: Performed By: #### C BCDIF, WSR, C3COMP, C4COMP, CRP, RF, HREMOP, VK7901, SEPGRX, MPASRM, INFTBG ####[address] [phone] Rheumatoid Factoron 11-26-19 18 Rheumatoid Factor <10 Normal <16 [facility] Comment on above: Performed By: #### C BCDIF, WSR, C3COMP, C4COMP, CRP, RF, HREMOP, OH2106, SEPGRX, MPASRM, INFTBG ####[address] [phone] Sed Rate Westergrenon 2017 Sed Rate Westergren 24 mm/hr High 0-20 [facility] Comment on above: Performed By: #### C BCDIF, WSR, C3COMP, C4COMP, CRP, RF, HREMOP, [id number], SEPGRX, MPASRM, INFTBG ####[place] [phone] TB by QuantiFERONon 11-26-19 18 Interpretation No evidence of curre nt or previous infection with Mycobacterium tuberculosis. Normal [facility] Comment on above: Performed By: #### C BCDIF, WSR, C3COMP, C4COMP, CRP, RF, HREMOP, [id number], SEPGRX, MPASRM, INFTBG ####[place] [phone] Mitogen Response >10.00 Normal >0.49 [facility] Comment on above: Performed By: #### C BCDIF, WSR, C3COMP, C4COMP, CRP, RF, HREMOP, IO7878, SEPGRX, MPASRM, INFTBG ####[place] [phone] TB Antigen Response 0.00 IU/mL Normal <0.35 [facility] Comment on above: Performed By: #### C BCDIF, WSR, C3COMP, C4COMP, CRP, RF, HREMOP, QW4649, SEPGRX, MPASRM, INFTBG ####[place] [phone] TB Result Negative Normal Negative [facility] Comment on above: Performed By: #### C BCDIF, WSR, C3COMP, C4COMP, CRP, RF, HREMOP, UE8246, SEPGRX, MPASRM, INFTBG ####[place] [phone] Transglutaminase IgAon 11-25 Transglutaminase IgA 5 Units Normal <20 [facility] Comment on above: Result Comment: Nega tive : < 20 UnitsWeak Positive : 20 - 30 UnitsModerate Pos to Strong Pos: >30 UnitsThe following results were obtained with the [employer] [place] QU[employer] Lite h-tTG IgA JUD. h-tTG IgA values obtained with different manufacturers' assay methods may not be used interchangeably. The magnitude of the reported IgA levels cannot be correlated to an endpoint titer. Performed By: #### G LIAD, TGIGA, IGA ####[facility] [address] [place], [place] [phone] PROGRESSon 10-21-2017 Protein mass conc HNO ID: [id number] thor: Juan Luis ParkerSermadisone: AbstractAuthor Type: PhysicianType: Progress NotesFiled: 11/26/2017 7:15 AMNote Text: [facility] NOTENAME: LINA DINERO CLINIC NO.: [id number] OF SERVICE: 10/21/2017SUBJECTIVE: Lina was last seen by me on August 24, 2017. Evaluationhas revealed MRE showing no active inflammatory small bowel disease withhaziness in the mesentery and prominent mesenteric lymph nodes raisingconcern for mesenteric panniculitis. She has also had an EG andcolonoscopy which was unrevealing. Polyp removed was unremarkable.Interestingly, duodenal biopsies showed increase in intraepitheliallymphocytes with normal villi. The patient has seen rheumatology todayand blood work has been ordered.OBJECTIVE: Vital signs show a blood pressure of 113/58, a pulse of 84, aweight of 247. Abdomen is soft, nontender.IMPRESSION AND RECOMMENDATIONS: This is a patient with possiblemesenteric panniculitis. If the rheumatologic evaluation is negative,would consider a biopsy either via laparoscopy. We will review the filmsto see if this could be done with EUS FNA. I would also like to send outa serum celiac blood panel.Sincerely,DICTATED BY: Juan Luis Parker M.D.BB/AcusisD:11/25/2017 JOB# [id number] Normal [facility] SURGICAL PATHOLOGYon 018 SURGICAL PATHOLOGY [facility]: [id number] Physician: JUAN LUIS PARKER MD FINAL DIAGNOSIS1. Duodenum, biopsy (A) - Small bowel mucosa with mild increase inintraepithelial lymphocytes with normal-appearing villi.2. Antrum, biopsy (B) - Antral mucosa with mild chronic inflammation.- No evidence of H. pylori.3. Random colon, biopsy (C) - Colonic mucosa with no diagnostic alteration.4. Colon at 20 cm, biopsy (D) - Hyperplastic polyp with prolapse-typechanges.TP/kr 10/22/2017 Griffin Leyva M.D.(Electronic Signature) SPECIME N SUBMITTEDA: DUODENUM, BIOPSY B: ANTRUM, BIOPSY C: RANDOM COLON, BIOPSY D: COLON, POLYP AT 20CM CLINICAL DATAHX OF ABD PAIN, ABNORMAL CT, MESENTERIC PANNICULITISA: R/O CELIACB: R/O HISTO H PYLORI C: R/O INFLAMMATION D: R/O ADENOMAGROSS DESCRIPTIONA. Received in formalin are three pieces of hebert, soft tissue aggregating to1.2 x 0.2 x 0.1 cm. Totally submitted in one cassette.B. Received in formalin is one piece of hebert, soft tissue measuring 0.5 x0.2 x 0.1 cm. Totally submitted in one cassette.C. Received in formalin are three pieces of hebert, soft tissue aggregating to1.4 x 0.2 x 0.2 cm. Totally submitted in one cassette.D. Received in formalin is a segment of hebert-red, polypoid, tissue measuring0.4 x 0.3 x 0 3 cm. No stalk is present. The line of resection is noted.The specimen is bisected and totally submitted in one cassette.Gross examination performed at [facility], [address] [place], [place] [address] 10/21/2017 3:55:56 PMPatient ID #: [id number] of Report: 10/22/2017Date of Procedure: 10/21/2017Date of Receipt: 10/21/2017Submitted by: JUAN LUIS PARKER MDLocation: WAYNE MAIN PROC I0Nuljdjjyaz interpretation performed at [facility], [address] [place] [address]. Normal [facility] CNCNPATEDon 09-09-2017 CNCNPATED Education (PCDAMN) ----LINA DINERO ([id number]) 1965 FDate Time Provider Department09/09/17 TORI DAMICO (RN) PCDAMNReason for Visit: Patient Education [91]Progress Notes:Tori Damico RN, RN 09/09/2017 2:46 PM SignedAMBULATORY PATIENT EDUCATION RADIOLOGYTOPIC: Pre- Procedure Teaching:Logistics / Protocols / ComplicationPreventionPost- Procedure Teaching: Symptom Management / Wound CareREADINESS TO LEARNCOGNITIVE ABILITY: Alert and orientedMOTIVATION TO LEARN: EagerInterestedFAMILY SUPPORT: High - Very involved in pt careINSTRUCTION PROVIDED TO: PatientPATIENT LEARNS BEST BY: Individual InstructionVerbal InstructionFACTORS AFFECTING LEARNING: NonePHYSICAL LIMITATIONS AFFECTING LEARNING: NoneLEARNING RESPONSEProcedure:Radiology Procedures MR EnterographyMETHOD OF INSTRUCTION: Verbal instructionPATIENT / FAMILY RESPONSE: Verbalizes understanding of: Pre ProcedureInstructionsPost Procedure InstructionsFOLLOW-UP PLAN: Complete - No need for follow-upElectronically Signed By Tori Damico RN In Department: [facility] During your visit today, we recorded the following information about you:Allergies As of Date: 09/09/2017(No Known Allergies)Date Reviewed: 09/09/2017Reviewed by: Tori (Rebecca) REBECCA Damico - Fully AssessedPrescriptions as of 09/09/2017 Sig: CITALOPRAM 10 MG TABLET Take 10 mg by mouth once vadim* LEVOTHYROXINE 50 MCG TABLET Take 50 mcg by mouth daily be* ESTRADIOL 0.01% (0.1 MG/GRAM)* Use 1 g vaginally twice a wee* GLUCAGON (HUMAN RECOMBINANT) * Inject 1 mg intravenously one* Status:Closed by TORI DAMICO on 09/09/17 Normal [facility] MRI ABD ENTEROG WO/W IVCONon 09-09-2017 MRI ABD ENTEROG WO/W IVCON * * *Final Report* * *DATE OF EXAM: Sep 09 2017 4:30PM QBM 0684 - MRI ABD ENTEROG WO/W IVCON / REASON: Right upper quadrant pain * * * * Physician Interpretation * * * * MRI OF THE ABDOMEN AND PELVIS WITHOUT AND WITH CONTRAST (ENTEROGRAPHY)CLINICAL HISTORY: Chronic RIGHT upper quadrant painCOMPARISON: None.TECHNIQUE: 1 mg of intravenous glucagon was administered just prior to the examination. Multisequence multiplanar pre and dynamic post contrast imaging was obtained through the abdomen and pelvis on the Siemens 1.5 T Avanto magnet.Contrast:IV: 20 ml of DotaremOral: 1000 ml of BreezaRESULT:GI Tract:Small bowel: No mural hyperenhancement or wall thickening.Colon: No mural hyperenhancement or wall thickening.Strictures: NoneFistulae/Sinus tracts: NoneAbscess: NoneAbdomen:Liver: No mass.Biliary: No bile duct dilation. Gallbladder is unremarkable.Spleen: No mass. No splenomegaly.Pancreas: No mass or duct dilation.Adrenals: No mass.Kidneys: Subcentimeter bilateral renal cysts. No hydronephrosis.Lymph nodes: No abdominal or pelvic lymphadenopathy.Mesentery/Pe ritoneum: Mild infiltration in the mesentery with prominent mesenteric lymph nodes measuring less than 1 cm in short axis dimension. No ascites.Vasculature: The celiac axis and SMA are patent. The portal vein and branches, splenic vein, SMV, and hepatic veins are patent.Pelvis: No mass, ascites or fluid collection.Bones/Soft Tissues: No osseous significant finding. Small lower ventral hernia RIGHT of the midline containing fat and trace fluid.Lung Bases: Unremarkable.IMPRESSION:NO ACTIVE INFLAMMATORY SMALL BOWEL CROHN'S DISEASE.MILD HAZINESS IN THE MESENTERY WITH PROMINENT MESENTERIC LYMPH NODES RAISES CONCERN FOR MESENTERIC PANNICULITIS. NO LYMPHADENOPATHY.Transcriptio nist: PSCB Transcribe Date/Time: Sep 09 2017 4:39PDictated by : MIKHAIL GUIDO MDThis examination was interpreted and the report reviewed and electronically signed by: MIKHAIL GUIDO MD on Sep 10 2017 8:16AM [id number] Normal [facility] MRI PEL ENTEROG WO/W IVCONon 09-09-2017 MRI PEL ENTEROG WO/W IVCON * * *Final Report* * *DATE OF EXAM: Sep 09 2017 4:30PM QBM 0736 - MRI PEL ENTEROG WO/W IVCON / REASON: Right upper quadrant pain * * * * Physician Interpretation * * * * MRI OF THE ABDOMEN AND PELVIS WITHOUT AND WITH CONTRAST (ENTEROGRAPHY)CLINICAL HISTORY: Chronic RIGHT upper quadrant painCOMPARISON: None.TECHNIQUE: 1 mg of intravenous glucagon was administered just prior to the examination. Multisequence multiplanar pre and dynamic post contrast imaging was obtained through the abdomen and pelvis on the Siemens 1.5 T Avanto magnet.Contrast:IV: 20 ml of DotaremOral: 1000 ml of BreezaRESULT:GI Tract:Small bowel: No mural hyperenhancement or wall thickening.Colon: No mural hyperenhancement or wall thickening.Strictures: NoneFistulae/Sinus tracts: NoneAbscess: NoneAbdomen:Liver: No mass.Biliary: No bile duct dilation. Gallbladder is unremarkable.Spleen: No mass. No splenomegaly.Pancreas: No mass or duct dilation.Adrenals: No mass.Kidneys: Subcentimeter bilateral renal cysts. No hydronephrosis.Lymph nodes: No abdominal or pelvic lymphadenopathy.Mesentery/Pe ritoneum: Mild infiltration in the mesentery with prominent mesenteric lymph nodes measuring less than 1 cm in short axis dimension. No ascites.Vasculature: The celiac axis and SMA are patent. The portal vein and branches, splenic vein, SMV, and hepatic veins are patent.Pelvis: No mass, ascites or fluid collection.Bones/Soft Tissues: No osseous significant finding. Small lower ventral hernia RIGHT of the midline containing fat and trace fluid.Lung Bases: Unremarkable.IMPRESSION:NO ACTIVE INFLAMMATORY SMALL BOWEL CROHN'S DISEASE.MILD HAZINESS IN THE MESENTERY WITH PROMINENT MESENTERIC LYMPH NODES RAISES CONCERN FOR MESENTERIC PANNICULITIS. NO LYMPHADENOPATHY.Transcriptio nist: PSCB Transcribe Date/Time: Sep 09 2017 4:39PDictated by : MIKHAIL GUIDO MDThis examination was interpreted and the report reviewed and electronically signed by: MIKHAIL GUIDO MD on Sep 10 2017 8:16AM [id number] Normal [facility] PROGRESSon 09-09-2017 Protein mass conc HNO ID: [id number] thor: Jennifer Box RtService: (none)Author Type: (none)Type: Progress NotesFiled: 09/09/2017 4:23 PMNote Text: Radiology Service Progress NotePATIENT NAME: Lina AlmazanRN: [id number] OF SERVICE: September 09, 2017TIME: 4:22 PMPATIENT IDENTITY VERIFICATION COMPLETED USING TWO (2) METHODS: Patientconfirmed name verbally and Date of .PATIENT GENDER DATA: Female. status: : NoBreastfeeding status: NO.PATIENT RELEVANT IMPLANT DATA REVIEWED: YesRADIOLOGY DEPARTMENT: MR; Exam(s) Completed: Body: EnterographyPERIPHERAL IV DATA: Site assessment: Clean,Dry and Intact, Sitedisposition Left in for RNSIGNED BY: Jennifer Box RtFebruary 2017 4:22 PM Normal [facility] Protein mass conc HNO ID: [id number] thor: Toir (Rn) Adeola RNService: (none)Author Type: Registered NurseType: Progress NotesFiled: 09/09/2017 2:46 PMNote Text:AMBULATORY PATIENT EDUCATION RADIOLOGYTOPIC: Pre- Procedure Teaching:Logistics / Protocols / ComplicationPreventionPost- Procedure Teaching: Symptom Management / Wound CareREADINESS TO LEARNCOGNITIVE ABILITY: Alert and orientedMOTIVATION TO LEARN: EagerInterestedFAMILY SUPPORT: High - Very involved in pt careINSTRUCTION PROVIDED TO: PatientPATIENT LEARNS BEST BY: Individual InstructionVerbal InstructionFACTORS AFFECTING LEARNING: NonePHYSICAL LIMITATIONS AFFECTING LEARNING: NoneLEARNING RESPONSEProcedure:Radiology Procedures MR EnterographyMETHOD OF INSTRUCTION: Verbal instructionPATIENT / FAMILY RESPONSE: Verbalizes understanding of: Pre ProcedureInstructionsPost Procedure InstructionsFOLLOW-UP PLAN: Complete - No need for follow-upElectronically Signed By Tori Damico RN In Department: [facility]OVon 08-24-2017 CNOV Office Visit (GASTMN) ----LINA DINERO ([id number]) 1965 FDate Time Provider Department08/24/17 2:10 PM JUAN LUIS PARKER GASTMN During your visit today, we recorded the following information about you: Temperature Pulse Blood pressure Weight 97.7 degrees 81/minute 145/83 120.1 kg Height 1.626 Gretta Parker MD 08/25/2017 7:23 AM Signed [facility] NOTENAME: LINA DINERO [facility] NO.: [id number] OF SERVICE: 08/24/2017NEW PATIENT EVALUATIONPRIMARY PHYSICIAN: None.HISTORY: Lina Dinero is seen in the office today with her . She margarito 52-year-old female who has had an interesting history. She states that shebegan to experience abdominal pain primarily in the right upper quadrantapproximately 10 years ago. After 3 or 4 years, she had a workup that includeda negative colonoscopy. She states an evaluation for Crohn's disease that wasnegative and an upper scope that was negative. She states that her symptomshave been increasing in both frequency and severity for 2 years and especiallyin the last 6 months. What she experiences is right upper quadrant pain.Now, that pain is always there at a low level, but will flareup. She statesthat she has flares 2 to 3 times per year that had been getting progressivelymore severe. Her last flare was a week ago, during which she washospitalized. She, during a flare, states that the pain becomes very intensein the right upper quadrant going to the right flank and down to the rightlower quadrant. It is associated with extreme nausea and vomiting. She hasmild dysphagia. She has no significant reflux or substernal pyrosis. Duringattacks of discomfort in the right upper quadrant, she has visible distentionin this area. She has no history of hepatitis or pancreatitis. She still hasher gallbladder. She has no lower symptoms other than diarrhea, which isconstant. She has no rectal bleeding in the form of bright red blood perrectum or melena. She has no family history of colorectal pathology in theform of colitis, polyps, or colon cancer. She has had 2 colonoscopies, whichwere, by her report, negative.PAST SURGICAL HISTORY: Significant for UVJ repair, right kidney atrophy,hysterectomy, her right ovary is still in place, ventral hernia repair withmesh placement and appendectomy.MEDICAL HISTORY: Significant for hypothyroidism.OUTPATIENT MEDICATIONS: Include Celexa, Synthroid, Estrace.ALLERGIES: She has no known allergies.SOCIAL HISTORY: She is a former smoker, drinks socially.REVIEW OF SYSTEMS: Has no other constitutional, head and neck,cardiovascular, pulmonary, renal, endocrine, dermatologic, rheumatologic,gynecologic, neuropsychiatric, or infectious complaints.PHYSICAL EXAMINATION: She is well developed, well nourished, in no distresswith a blood pressure of 145/83, a pulse of 81, a weight of 264.8, with a BMIof 45.45. Abdomen is soft, nontender. No guarding or rebound.IMPRESSION AND RECOMMENDATIONS: This is an intriguing presentation. She hashad 10 years of symptoms, which have increased over the past 2 years andespecially in the last 6 months. The pain is intense pain that can last forseveral hours in the right upper quadrant with associated distention in thatarea with profound nausea and vomiting. It sounds as if she is having anintermittent obstructive process in the right upper quadrant. She has not hadany studies of her small bowel today and I begin her evaluation with an MRE.If this is unremarkable, we will get an MRCP. If this is unremarkable, then I would proceed with a repeat EGD and colonoscopy. The patient is in agreementwith these plans and I will keep you apprised of all results as they unfold.Sincerely,DICTATED BY: Juan Luis Parker M.D.SHIRLEY/AcusisD:08/24/2017 TINYB# [id number] Oswaldo Parker MD 08/24/2017 3:04 PM SignedBloods todaySch MRE and I will call with results.Underwriting Manager:Transc ribed Clinic Note (alfredo) ID: [id number] or: JUAN LUIS PARKERESigned by JUAN LUIS PARKER MD on 08/25/2017 at 7:23 AMDocument text: [facility] NOTENAME: LINA DINERO [facility] NO.: [id number] OF SERVICE: 08/24/2017NEW PATIENT EVALUATIONPRIMARY PHYSICIAN: None.HISTORY: Lina Dinero is seen in the office today with her .She is a 52-year-old female who has had an interesting history. Shestates that she began to experience abdominal pain primarily in the rightupper quadrant approximately 10 years ago. After 3 or 4 years, she had aworkup that included a negative colonoscopy. She states an evaluationfor Crohn's disease that was negative and an upper scope that wasnegative. She states that her symptoms have been increasing in bothfrequency and severity for 2 years and especially in the last 6 months.What she experiences is right upper quadrant pain. Now, that pain isalways there at a low level, but will flareup. She states that she hasflares 2 to 3 times per year that had been getting progressively moresevere. Her last flare was a week ago, during which she washospitalized. She, during a flare, states that the pain becomes veryintense in the right upper quadrant going to the right flank and down tothe right lower quadrant. It is associated with extreme nausea andvomiting. She has mild dysphagia. She has no significant reflux orsubsternal pyrosis. During attacks of discomfort in the right upperquadrant, she has visible distention in this area. She has no history ofhepatitis or pancreatitis. She still has her gallbladder. She has nolower symptoms other than diarrhea, which is constant. She has no rectalbleeding in the form of bright red blood per rectum or melena. She hasno family history of colorectal pathology in the form of colitis, polyps,or colon cancer. She has had 2 colonoscopies, which were, by her report, negative.PAST SURGICAL HISTORY: Significant for UVJ repair, right kidney atrophy,hysterectomy, her right ovary is still in place, ventral hernia repairwith mesh placement and appendectomy.MEDICAL HISTORY: Significant for hypothyroidism.OUTPATIENT MEDICATIONS: Include Celexa, Synthroid, Estrace.ALLERGIES: She has no known allergies.SOCIAL HISTORY: She is a former smoker, drinks socially.REVIEW OF SYSTEMS: Has no other constitutional, head and neck,cardiovascular, pulmonary, renal, endocrine, dermatologic, rheumatologic,gynecologic, neuropsychiatric, or infectious complaints.PHYSICAL EXAMINATION: She is well developed, well nourished, in nodistress with a blood pressure of 145/83, a pulse of 81, a weight of264.8, with a BMI of 45.45. Abdomen is soft, nontender. No guarding orrebound.IMPRESSION AND RECOMMENDATIONS: This is an intriguing presentation. Inder had 10 years of symptoms, which have increased over the past 2 yearsand especially in the last 6 months. The pain is intense pain that canlast for several hours in the right upper quadrant with associateddistention in that area with profound nausea and vomiting. It sounds annel she is having an intermittent obstructive process in the right upperquadrant. She has not had any studies of her small bowel today and Ibegin her evaluation with an MRE. If this is unremarkable, we will getan MRCP. If this is unremarkable, then I would proceed with a repeat EGDand colonoscopy. The patient is in agreement with these plans and I willkeep you apprised of all results as they unfold.Sincerely,DICTATED BY: Juan Luis Parker M.D.BB/BaosD:08/24/2017 JOB# [id number] document [id number] only Referring Provider: SELF [200]Allergies As of Date: 08/24/2017(No Known Allergies)Date Reviewed: 08/24/2017Reviewed by: Da Baker - Fully AssessedReason for Visit: New Patient [172] Cmt: IBS / pt has gut flare ups causing extreme painPrimary Visit Diagnosis:RUQ abdominal pain [R10.11] Other Visit Diagnosis:Morbid obesity (HCC) [E66.01]Order(s):MRI ABD ENTEROG WO/W IVCON [3640068] Order #: [id number] FUTURE MRI PEL ENTEROG WO/W IVCON [[id number]] Order #: [id number] FUTURE iv contrast (radiology procedure)MRI Enterography Inject, intravenously, once for 1 dose. No IV access, insert saline lock prior to the beginning of sedation, infusion, injection of imaging exam. Discontinue saline lock post exam. If Pt. has a central line or IVAD, may access for administration according to line specific nursing protocol. Once exam is complete flush line and de-access according to line specific nursing protocol in the MR contrast administration guidelines link.Disp: 1 EachRfl: 0 enteric contrast (radiology procedure)For MRI ENTEROGRAPHY WO/W Administer, As Directed One Time Only, via Oral, Rectal, both Oral and Rectal, Enteric Tube, Stoma or Indwelling Catheter,? Enteric Contrast as designated per enteric contrast guidelinesDisp: 1 EachRfl: 0 glucagon (GLUCAGEN) 1 mg/mL injectionInject 1 mg intravenously one time only for 1 dose. For MRI Enterography, Inject 1 mg intravenously, as directed. Slow push at the appropriate time during MRI ScanDisp: 1 mgRfl: 0 COMP METABOLIC PANEL [SQCMP] Order #: [id number] FUTUREPrescriptions as of 08/24/2017 Sig: CITALOPRAM 10 MG TABLET Take 10 mg by mouth once vadim* LEVOTHYROXINE 50 MCG TABLET Take 50 mcg by mouth daily be* ESTRADIOL 0.01% (0.1 MG/GRAM)* Use 1 g vaginally twice a wee* IV CONTRAST (RADIOLOGY PROCED* MRI Enterography Inject, intr* ENTERIC CONTRAST (RADIOLOGY P* For MRI ENTEROGRAPHY WO/W Adm* GLUCAGON (HUMAN RECOMBINANT) * Inject 1 mg intravenously one*Problem List As Of Date: 08/24/2017(None) Other instructions from your clinician: Bloods today Chante MRE and I will call with results.Prescriptions ordered this encounter Disp Refills Start End IV CONTRAST (RADIOLOGY PROCEDURE) 1 Ea* 0 08/24/2017 08/25/2017 Class: In Office Sig: MRI Enterography Inject, intravenously, once for 1 dose. No IV access, insert saline lock prior to the beginning of sedation, infusion, injection of imaging exam. Discontinue saline lock post exam. If Pt. has a central line or IVAD, may access for administration according to line specific nursing protocol. Once exam is complete flush line and de-access according to line specific nursing protocol in the MR contrast administration guidelines link. ENTERIC CONTRAST (RADIOLOGY PROCEDUR* 1 Ea* 0 08/24/2017 08/25/2017 Class: In Office Sig: For MRI ENTEROGRAPHY WO/W Administer, As Directed One Time Only, via Oral, Rectal, both Oral and Rectal, Enteric Tube, Stoma or Indwelling Catheter,? Enteric Contrast as designated per enteric contrast guidelines GLUCAGON (HUMAN RECOMBINANT) 1 MG/ML* 1 mg 0 08/24/2017 08/24/2017 Class: In Office Route: INTRAVENOUS Sig: Inject 1 mg intravenously one time only for 1 dose. For MRI Enterography, Inject 1 mg intravenously, as directed. Slow push at the appropriate time during MRI ScanEncounter Number: [id number] Status:Closed by JUAN LUIS PARKER MD on 08/25/17 Normal [facility] Comp Metabolic Panelon 08-24 Albumin mass conc 3.9 g/dL Normal 3.9-4.9 [facility] Comment on above: Performed By: #### C MP ####[facility] [address] [place], [place] [phone] ALP enzyme act/vol 77 U/L Normal 32-117 [facility] Comment on above: Performed By: #### C MP ####[facility] [address] [place], [place] [phone] ALT enzyme act/vol 13 U/L Normal 7-38 [facility] Comment on above: Performed By: #### C MP ####[facility] [address] [place], [place] [phone] Anion gap 3 molar conc 10 mmol/L Normal 9-18 [facility] Comment on above: Performed By: #### C MP ####[place] [address] [address] [place] [phone] AST enzyme act/vol 23 U/L Normal 13-35 [facility] Comment on above: Performed By: #### C MP ####[place] [address] [address] [place] [phone] Bilirubin mass conc 0.2 mg/dL Normal 0.2-1.3 [facility] Comment on above: Performed By: #### C MP ####[place] [address] [place] [place] [phone] Calcium mass conc 9.6 mg/dL Normal 8.5-10.2 [facility] Comment on above: Performed By: #### C MP ####[place] [address] [place] [phone] Chloride molar conc 99 mmol/L Normal 97-105 [facility] Comment on above: Performed By: #### C MP ####[place] [address] [address] [place] [phone] CO2 molar conc 30 mmol/L Normal 22-30 [facility] Comment on above: Performed By: #### C MP ####[place] [address] [address] [place] [phone] Creatinine mass conc 0.93 mg/dL Normal 0.58-0.96 [facility] Comment on above: Performed By: #### C MP ####[place] [address] [address] [place] [phone] eGFR- Amer. >60 Normal [facility] Comment on above: Performed By: #### C MP ####[place] [address] [address] [place] [phone] GFR/1.73 sq M predicted among non-blacks MDRD vol rate/area (S/P/Bld) mL/min/{1.73_m2} Normal [facility] Comment on above: Result Comment: eGFR (Estimated GFR) Units of measure: mL/min/1.73 meters squaredeGFR is derived from the reexpressed MDRD Study equation using the following parameters: serum creatinine, age, gender and race. The creatinine assay has been calibrated to be traceable to IDMS.An eGFR <60 mL/min/1.73m2 for >3 months is consistent with chronic kidney disease. Refer to KDOQI guidelines for clinical interpretation.In patients with unstable renal function, e.g. those with acute kidney injury, the eGFR may not accurately reflect actual GFR. Performed By: #### C MP ####[facility], [place] [phone] Glucose mass conc 76 mg/dL Normal 74-99 [facility] Comment on above: Result Comment: The [place] Diabetes Association (ADA) provides guidance for cutoff values for fasting glucose and random glucose. The ADA defines fasting as no caloric intake for at least 8 hours. Fasting plasma glucose results between 100 to 125 mg/dL indicate increased risk for diabetes (prediabetes).Fasting plasma glucose results greater than or equal to 126 mg/dL meet the criteria for diagnosis of diabetes. In the absence of unequivocal hyperglycemia, results should be confirmed by repeat testing. In a patient with classic symptoms of hyperglycemia or hyperglycemic crisis, random plasma glucose results greater than or equal to 200 mg/dL meet the criteria for diagnosis of diabetes.Reference: Standards of Medical Care in Diabetes 2016, Canadian Diabetes Association. Diabetes Care. 2016.39(Suppl 1). Performed By: #### C MP ####[facility] [address] [place], [place] [phone] Potassium molar conc 4.6 mmol/L Normal 3.7-5.1 [facility] Comment on above: Performed By: #### C MP ####[facility], [place] [phone] Protein mass conc 6.8 g/dL Normal 6.3-8.0 [facility] Comment on above: Performed By: #### C MP ####[facility] [address], [place] [phone] Sodium molar conc 139 mmol/L Normal 136-144 [facility] Comment on above: Performed By: #### C MP ####[facility] [address] [place], [place] [phone] Urea nitrogen mass conc 16 mg/dL Normal 7-21 [facility] Comment on above: Performed By: #### C MP ####[facility] [address] [place], [place] [phone] PROGRESSon 08-24-2017 Protein mass conc HNO ID: [id number] thor: Juan Luis Coronado: AbstractAuthor Type: PhysicianType: Progress NotesFiled: 08/25/2017 7:23 AMNote Text: [facility] NOTENAME: LINA DINERO [facility] NO.: [id number] OF SERVICE: 08/24/2017NEW PATIENT EVALUATIONPRIMARY PHYSICIAN: None.HISTORY: Lina Dinero is seen in the office today with her .She is a 52-year-old female who has had an interesting history. Shestates that she began to experience abdominal pain primarily in the rightupper quadrant approximately 10 years ago. After 3 or 4 years, she had aworkup that included a negative colonoscopy. She states an evaluationfor Crohn's disease that was negative and an upper scope that wasnegative. She states that her symptoms have been increasing in bothfrequency and severity for 2 years and especially in the last 6 months.What she experiences is right upper quadrant pain. Now, that pain isalways there at a low level, but will flareup. She states that she hasflares 2 to 3 times per year that had been getting progressively moresevere. Her last flare was a week ago, during which she washospitalized. She, during a flare, states that the pain becomes veryintense in the right upper quadrant going to the right flank and down tothe right lower quadrant. It is associated with extreme nausea andvomiting. She has mild dysphagia. She has no significant reflux orsubsternal pyrosis. During attacks of discomfort in the right upperquadrant, she has visible distention in this area. She has no history ofhepatitis or pancreatitis. She still has her gallbladder. She has nolower symptoms other than diarrhea, which is constant. She has no rectalbleeding in the form of bright red blood per rectum or melena. She hasno family history of colorectal pathology in the form of colitis, polyps,or colon cancer. She has had 2 colonoscopies, which were, by her report, negative.PAST SURGICAL HISTORY: Significant for UVJ repair, right kidney atrophy,hysterectomy, her right ovary is still in place, ventral hernia repairwith mesh placement and appendectomy.MEDICAL HISTORY: Significant for hypothyroidism.OUTPATIENT MEDICATIONS: Include Celexa, Synthroid, Estrace.ALLERGIES: She has no known allergies.SOCIAL HISTORY: She is a former smoker, drinks socially.REVIEW OF SYSTEMS: Has no other constitutional, head and neck,cardiovascular, pulmonary, renal, endocrine, dermatologic, rheumatologic,gynecologic, neuropsychiatric, or infectious complaints.PHYSICAL EXAMINATION: She is well developed, well nourished, in nodistress with a blood pressure of 145/83, a pulse of 81, a weight of264.8, with a BMI of 45.45. Abdomen is soft, nontender. No guarding orrebound.IMPRESSION AND RECOMMENDATIONS: This is an intriguing presentation. Inder had 10 years of symptoms, which have increased over the past 2 yearsand especially in the last 6 months. The pain is intense pain that canlast for several hours in the right upper quadrant with associateddistention in that area with profound nausea and vomiting. It sounds annel she is having an intermittent obstructive process in the right upperquadrant. She has not had any studies of her small bowel today and Ibegin her evaluation with an MRE. If this is unremarkable, we will getan MRCP. If this is unremarkable, then I would proceed with a repeat EGDand colonoscopy. The patient is in agreement with these plans and I willkeep you apprised of all results as they unfold.Sincerely,DICTATED BY: Juan Luis Parker M.D.SHIRLEY/AcusisD:08/24/2017 RADHA# [id number] Normal [facility] CT-CT ABDOMEN AND PELVIS W C ONT IMPORTon 08-13-2017 CT-CT ABDOMEN AND PELVIS W CONT IMPORT Images were obtained outside of [facility] [id number] Normal [facility] Vital Signs Date Time Vital Sign Value Performing Clinician Facility 09-04-2024 08:57-0500 Body mass index (BMI) [Ratio] 26.74 kg/m2 Caden Ildefonso DO Work Phone: [facility] 09-04-2024 08:57-0500 Body weight 70.67 kg Caden Ildefonso DO Work Phone: [facility] 09-04-2024 08:57-0500 Diastolic blood pressure 70 mm[Hg] Caden Ildefonso DO Work Phone: [facility] 09-04-2024 08:57-0500 Systolic blood pressure 100 mm[Hg] Caden Ildefonso DO Work Phone: [facility] 07-14-2024 08:31-0500 Body height 162.6 cm Ibeth Fernandez PA Work Phone: [facility] 07-14-2024 08:31-0500 Body mass index (BMI) [Ratio] 28.32 kg/m2 Ibeth Fernandez PA Work Phone: [facility] 07-14-2024 08:31-0500 Body weight 74.84 kg Ibeth Fernandez PA Work Phone: [facility] 04-26-2024 14:03-0400 Body height 162.6 cm Ibeth Fernandez PA Work Phone: [facility] 04-26-2024 14:03-0400 Body mass index (BMI) [Ratio] 32.1 kg/m2 Ibeth Fernandez PA Work Phone: [facility] 04-26-2024 14:03-0400 Body weight 84.82 kg Ibeth Fernandez PA Work Phone: [facility] 09-10-2023 14:13-0500 Body mass index (BMI) [Ratio] 49.38 kg/m2 Jhon Enriquez MD Work Phone: [facility] 09-10-2023 14:13-0500 Body weight 127.46 kg Jhon Enriquez MD Work Phone: [facility] 09-10-2023 14:13-0500 Diastolic blood pressure 55 mm[Hg] Jhon Enriquez MD Work Phone: [facility] [employer] 09-10-2023 14:13-0500 Heart rate 66 /min Jhon Enriquez MD Work Phone: [facility] 09-10-2023 14:13-0500 Systolic blood pressure 119 mm[Hg] [facility] 11-25-2017 13:26-0400 Body surface area Derived from formula JUAN LUIS PARKER [facility] Comment on above: Performed By: #### C BCDIF, WSR, C3COMP, C4COMP, CRP, RF, HREMOP, XI1185, SEPGRX, MPASRM, INFTBG ####[facility] [id number] [place], [place] [phone] Encounters Encounter Date Encounter Type Care Provider Facility Start: 09-04-2024 End: 09-04-2024 Bamboo flowsheet Caden Ildefonso DO Work Phone: [facility] Start: 09-04-2024 End: 09-04-2024 Bamboo flowsheet Caden Ildefonso DO Work Phone: [facility] Start: 09-04-2024 End: 09-04-2024 Patient encounter procedure Caden Ildefonso DO Work Phone: [facility] Start: 09-04-2024 End: 09-04-2024 Periodic preventive med est patient 40-64yrs Caden Ildefonso DO Work Phone: [facility] Comment on above: Well woman exam with routine gynecological exam; Encounter for screening mammogram for malignant neoplasm of breast; Postmenopausal state Start: 09-01-2024 End: 09-01-2024 Bamboo flowsheet Ibeth DORSEY Work Phone: [facility] Start: 09-01-2024 End: 09-01-2024 Bamboo flowsheet Ibeth Fina Fernandez PA Work Phone: [facility] Start: 09-01-2024 End: 09-01-2024 Postop follow up visit related to original px Ibeth J Jim PA Work Phone: [facility] Comment on above: S/P arthroscopy of r ight shoulder (Primary Dx) Start: 09-01-2024 End: 09-01-2024 ambulatory Simona Moon NUMERICAL CONTROL MACHINE TOOL OPERATOR Work Phone: [facility] Comment on above: Acute pain of right shoulder (Primary Dx); Shoulder stiffness, right; S/P arthroscopy of right shoulder Start: 08-30-2024 End: 08-30-2024 Bamboo flowsheet Bigg Chapa PT Work Phone: [facility] Start: 08-30-2024 End: 08-30-2024 Bamboo flowsheet Bigg Harden Sebastian PT Work Phone: [facility] Start: 08-30-2024 End: 08-31-2024 ambulatory Bigg J Sebastian PT Work Phone: [facility] Comment on above: Acute pain of right shoulder (Primary Dx); Shoulder stiffness, right; S/P arthroscopy of right shoulder Start: 08-23-2024 End: 08-23-2024 Bamboo flowsheet Simona Moon NUMERICAL CONTROL MACHINE TOOL OPERATOR Work Phone: [facility] Start: 08-23-2024 End: 08-23-2024 Bamboo flowsheet Simona Moon NUMERICAL CONTROL MACHINE TOOL OPERATOR Work Phone: [facility] Start: 08-23-2024 End: 08-23-2024 ambulatory Simona Moon NUMERICAL CONTROL MACHINE TOOL OPERATOR Work Phone: [facility] Comment on above: Acute pain of right shoulder (Primary Dx); Shoulder stiffness, right; S/P arthroscopy of right shoulder Start: 08-21-2024 End: 08-21-2024 ambulatory SIMONA MOON Not Available Start: 08-21-2024 End: 08-21-2024 Bamboo flowsheet Simona Moon NUMERICAL CONTROL MACHINE TOOL OPERATOR Work Phone: [facility] Start: 08-21-2024 End: 08-21-2024 Bamboo flowsheet Simona Moon NUMERICAL CONTROL MACHINE TOOL OPERATOR Work Phone: [facility] Start: 08-18-2024 End: 08-18-2024 ambulatory Simona Moon NUMERICAL CONTROL MACHINE TOOL OPERATOR Work Phone: [facility] Comment on above: Acute pain of right shoulder (Primary Dx); Shoulder stiffness, right; S/P arthroscopy of right shoulder Start: 08-16-2024 End: 08-17-2024 ambulatory Simona Moon NUMERICAL CONTROL MACHINE TOOL OPERATOR Work Phone: [facility] Comment on above: Acute pain of right shoulder (Primary Dx); Shoulder stiffness, right; S/P arthroscopy of right shoulder Start: 08-08-2024 End: 08-08-2024 Bamboo flowsheet Bigg Chapa PT Work Phone: [facility] Start: 08-08-2024 End: 08-08-2024 Bamboo flowsheet Bigg Chapa PT Work Phone: [facility] Start: 08-08-2024 End: 08-08-2024 ambulatory Bigg Chapa PT Work Phone: [facility] Comment on above: Acute pain of right shoulder (Primary Dx); Shoulder stiffness, right; S/P arthroscopy of right shoulder Start: 08-04-2024 End: 08-04-2024 Bamboo flowsheet Ibeth DORSEY Work Phone: [facility] Start: 08-04-2024 End: 08-04-2024 Bamboo flowsheet Ibeth DORSEY Work Phone: [facility] Start: 08-04-2024 End: 08-04-2024 Postop follow up visit related to original px Ibeth DORSEY Work Phone: [facility] Comment on above: S/P arthroscopy of r ight shoulder (Primary Dx); Internal derangement of right shoulder Start: 08-04-2024 End: 08-04-2024 ambulatory IBETH FERNANDEZ Not Available Start: 08-01-2024 End: 08-01-2024 Refill Jhon Enriquez MD Work Phone: [facility] Start: 07-21-2024 End: 07-21-2024 ambulatory [facility] Start: 07-21-2024 Encounter for genera l adult medical examination without abnormal findings [facility] Start: 07-20-2024 End: 07-20-2024 Refill Kota Crawford NP Work Phone: [facility] Comment on above: Internal derangement of right shoulder (Primary Dx) Start: 07-17-2024 End: 07-17-2024 ambulatory [facility] Start: 07-14-2024 End: 07-14-2024 Bamboo flowsheet Ibeth Fernandez PA Work Phone: [facility] Start: 07-14-2024 End: 07-14-2024 Bamboo flowsheet Ibeth Fernandez PA Work Phone: [facility] Start: 07-14-2024 End: 07-14-2024 Patient encounter procedure Ibeth DORSEY Work Phone: [facility] Comment on above: Pre-op examination ( Primary Dx) Start: 07-14-2024 End: 07-14-2024 Preprocedural examination done Ibeth DORSEY Work Phone: [facility] Work Phone: Start: 07-14-2024 End: 07-14-2024 ambulatory IBETH FERNANDEZ Not Available Start: 06-21-2024 End: 06-22-2024 Refill Jhon Enriquez MD Work Phone: [facility] Start: 06-02-2024 End: 06-02-2024 Clinical Support Jhon Enriquez MD Work Phone: [facility] Comment on above: Acute cystitis witho ut hematuria (Primary Dx) Start: 05-26-2024 End: 05-26-2024 ambulatory JHON ENRIQUEZ [facility] Start: 05-24-2024 End: 05-24-2024 Refill Jhon Enriquez MD Work Phone: [facility] Start: 05-15-2024 End: 05-15-2024 Bamboo flowsraj Pelaez DO Work Phone: [facility] Start: 05-15-2024 End: 05-15-2024 Bamboo flowsheet Jr. Td Maravilla Stepanupam DO Work Phone: [facility] Start: 05-15-2024 End: 05-15-2024 Office outpatient visit 25 minutes Jr. Td Pelaez DO Work Phone: [facility] Comment on above: Internal derangement of right shoulder (Primary Dx) Start: 05-15-2024 End: 05-15-2024 ambulatory TD MONTESINOS Not Available Start: 05-02-2024 End: 05-02-2024 ambulatory IBETH FERNANDEZ Not Available Start: 04-26-2024 End: 04-26-2024 Bamboo flowsheet Ibeth DORSEY Work Phone: [facility] Start: 04-26-2024 End: 04-26-2024 Bamboo flowsheet Ibeth DORSEY Work Phone: [facility] Start: 04-26-2024 End: 04-26-2024 Office outpatient visit 25 minutes Ibeth DORSEY Work Phone: [facility] Comment on above: Acute pain of right shoulder (Primary Dx); Internal derangement of right shoulder Start: 04-26-2024 End: 04-26-2024 ambulatory IBETH FERNANDEZ Not Available Start: 02-08-2024 End: 02-08-2024 ambulatory STEFANIA VALENCIA [facility] Start: 01-21-2024 End: 01-21-2024 ambulatory [facility] Start: 10-08-2023 End: 10-08-2023 ambulatory CADEN FREGOSO [facility] Start: 09-18-2023 Refill Jhon [facility]vedo MD [facility] Start: 09-10-2023 End: 09-10-2023 ambulatory RADHA [facility] Start: 09-10-2023 End: 09-10-2023 Office outpatient visit 15 minutes Jhon Enriquez MD [facility] Comment on above: Class 3 severe obesi ty due to excess calories without serious comorbidity with body mass index (BMI) of 45.0 to 49.9 in adult ([facility]) (Primary Dx); Allergic contact dermatitis due to metals Start: 08-30-2023 Clinisync Result Encounter Caden Fregoso DO Work Phone: [facility] Unsolicited Start: 08-30-2023 Clinisync Result Encounter Caden Ildefonso DO Work Phone: [facility] Unsolicited Start: 08-17-2023 Refill Jhon acevedo MD Work Phone: [facility] Comment on above: Type 2 diabetes gilbert itus without complication, without long- term current use of insulin ([facility]) Start: 09-18-2022 End: 09-18-2022 ambulatory VALREIY HOLLAND . Facility: Start: 08-25-2022 End: 08-25-[address] CADEN FREGOSO . Facility: Start: 06-13-2018 End: 06-15-2018 Patient encounter procedure JUAN LUIS PARKER [facility] Start: 12-28-2017 Patient encounter procedure KJ ERICKSON [facility] Start: 11-25-2017 End: 11-26-2017 Patient encounter procedure JUAN LUIS PARKER [facility] Start: 10-21-2017 End: 03-16-2018 Patient encounter procedure JUAN LUIS PARKER [facility] Start: 10-21-2017 Patient encounter procedure JUAN LUIS PARKER [facility] Start: 09-09-2017 End: 09-09-2017 Patient encounter procedure JUAN LUIS PARKER [facility] Start: 08-24-2017 Patient encounter procedure JUAN LUIS SINGHANNY [facility] Start: 08-24-2017 End: 09-01-2017 Patient encounter procedure JUAN LUIS SINGHANNY [facility] Start: 08-13-2017 Patient encounter procedure JUAN LUIS PARKER [facility] Procedures Date Procedure Procedure Detail Performing Clinician Start: 07-17-2024 Adult depression scr eening assessment Jhon Enriquez MD Work Phone: Start: 06-02-2024 Urnls dip stick/tabl et rgnt non-auto w/o micrscp Jhon Enriquez MD Work Phone: Start: 04-26-2024 Arthrocentesis aspir &/inj major jt/bursa w/o us Ibeth Fernandez PA Work Phone: Start: 10-19-2023 Mammography Ibeth DORSEY Work Phone: Start: 08-30-2023 IGP,APTIMA HPV,AGE GDLN Caden Ildefonso DO Work Phone: Start: 08-30-2023 Microscopic observat ion [Identifier] in Cervix by Cyto stain Bigg Chapa PT Work Phone: Start: 09-30-2022 Mammography Jhon Vallejo Work Phone: Start: 10-03-2021 Microalbumin [Mass/v olume] in Urine by Test strip Jhon Enriquez MD Work Phone: Start: 11-27-2020 Adult depression scr eening assessment Jhon Enriquez MD Work Phone: Start: 10-21-2017 Colonoscopy Jhon Vallejo Work Phone: Plan of Treatment Date Care Activity Detail Author Start: 10-22-2027 Screening for malign ant neoplasm of colon [facility] Start: 08-30-2026 Screening for malign ant neoplasm of cervix [facility] Start: 09-10-2025 End: 09-10-2025 Patient encounter procedure 09/10/2025 9:00 AM EST Office Visit [facility] [address] [place] [phone] Caden Fregoso, DO [address] [place] [address] [facility] Start: 07-20-2025 End: 07-20-2025 Patient encounter procedure 07/20/2025 1:30 PM EST Office Visit [facility] [address] [place] [phone] Jhon Enriquez MD [address] [place] [address], [address] [place], [place] [phone] [facility] Start: 07-17-2025 Adult BMI Screening Adult BMI Screen ing [facility] Start: 07-17-2025 Depression Screening Depression Scre ening [facility] Start: 07-17-2025 Tobacco Screening Tobacco Screening [facility] Start: 10-18-2024 Screening for malign ant neoplasm of breast Mammogram [facility] Start: 10-07-2024 Adult BMI Screening Adult BMI Screen ing [facility] Start: 10-06-2024 End: 10-06-2024 ambulatory 10/06/2024 10:30 AM EST Treatment [facility] [address] [place] [phone] Simona Moon, NUMERICAL CONTROL MACHINE TOOL OPERATOR [address] [place] [address] [facility] Start: 10-06-2024 End: 10-06-2024 Patient encounter procedure 10/06/2024 10:00 AM EST Office Visit [facility] [address] [place] [phone] Ibeth Fernandez, PA [address] [facility] [place] [address] [facility] Start: 10-03-2024 End: 10-03-2024 ambulatory 10/03/2024 4:00 PM EST Treatment [facility] [address] [place] [phone] Bigg Chapa, PT [address] [place] [address] [facility] Start: 09-26-2024 End: 09-26-2024 ambulatory 09/26/2024 4:00 PM EST Treatment [facility] [address] [place] [phone] Simona Moon, NUMERICAL CONTROL MACHINE TOOL OPERATOR [address] [place] [address] [facility] Start: 09-22-2024 End: 09-22-2024 ambulatory 09/22/2024 2:00 PM EST Treatment [facility] [address] [place] [phone] Simona Moon, NUMERICAL CONTROL MACHINE TOOL OPERATOR [address] [place] [address] [facility] Start: 09-19-2024 End: 09-19-2024 ambulatory 09/19/2024 4:00 PM EST Treatment [facility] [address] [place] [phone] Bigg Chapa, PT [address] [place] [address] [facility] Start: 09-15-2024 End: 09-15-2024 ambulatory 09/15/2024 2:00 PM EST Treatment [facility] [address] [place] [address] Charlette Resendez PTA [facility] Start: 09-12-2024 End: 09-12-2024 ambulatory 09/12/2024 4:00 PM EST Treatment [facility] [address] [place] [phone] Liat Rosado PTA [facility] Start: 09-10-2024 Adult BMI Screening Adult BMI Screen ing [facility] Start: 09-10-2024 Tobacco Screening Tobacco Screening [facility] Start: 09-08-2024 End: 09-08-2024 ambulatory 09/08/2024 2:30 PM EST Treatment [facility] [address] [place] [address] Brittney Moontchen, NUMERICAL CONTROL MACHINE TOOL OPERATOR [address] [place] [address] [facility] Start: 09-05-2024 End: 09-05-2024 ambulatory 09/05/2024 4:00 PM EST Treatment [facility] [address] [place] [phone] Liat Rosado PTA [facility] Start: 09-04-2024 End: 09-04-2025 DXA Skeletal system Views for bone density DEXA bone density Imaging Routine Postmenopausal state Expected: 09/04/2024 (Approximate), Expires: 09/04/2025 [facility] Comment on above: Expected: 09/04/2024 (Approximate), Expires: 09/04/2025 Start: 09-04-2024 End: 11-02-2025 MG Breast - bilateral Screening Bilateral screening mammogram Imaging Routine Encounter for screening mammogram for malignant neoplasm of breast Expected: 09/04/2024, Expires: 11/02/2025 [facility] Work Phone: Comment on above: Expected: 09/04/2024 , Expires: 11/02/2025 Start: 09-04-2024 End: 09-04-2024 Patient encounter procedure [facility] Comment on above: Arrived Start: 09-01-2024 End: 09-01-2024 ambulatory [facility] Start: 09-01-2024 End: 09-01-2024 Patient encounter procedure [facility] Comment on above: S/P arthroscopy of r ight shoulder (Primary Dx) Start: 08-30-2024 End: 08-30-2024 ambulatory [facility] Comment on above: Arrived Start: 08-23-2024 End: 08-23-2024 ambulatory [facility] Comment on above: Arrived Start: 08-21-2024 End: 08-21-2024 ambulatory 08/21/2024 2:00 PM EST Treatment [facility] [address] [place] [phone] Simona Moon, NUMERICAL CONTROL MACHINE TOOL OPERATOR [address] [place] [address] [facility] Start: 08-18-2024 End: 08-18-2024 ambulatory 08/18/2024 2:00 PM EST Treatment [facility] [address] [place] [phone] Simona Moon, NUMERICAL CONTROL MACHINE TOOL OPERATOR [address] [place] [address] [facility] Start: 08-16-2024 End: 08-16-2024 ambulatory 08/16/2024 2:00 PM EST Treatment [facility] [address] [place] [address] Simona Moon, NUMERICAL CONTROL MACHINE TOOL OPERATOR [address] [place] [address] [facility] Start: 08-08-2024 End: 08-08-2024 ambulatory 08/08/2024 5:30 PM EST Evaluation [facility] [address] [place] [phone] Bigg Chapa, PT [address] [place], [place] [phone] [facility] Start: 08-08-2024 End: 08-08-2024 ambulatory 08/08/2024 1:30 PM EST Evaluation [facility] [address] [place] [phone] Bigg Chapa, PT [address] [place] [place], [place] [phone] S/P arthroscopy of right shoulder [facility] Comment on above: S/P arthroscopy of r ight shoulder Start: 08-04-2024 End: 08-04-2024 Patient encounter procedure [facility] Comment on above: S/P arthroscopy of r ight shoulder (Primary Dx) Start: 07-17-2024 End: 07-17-2024 Patient encounter procedure 07/17/2024 3:30 PM EST [facility] [address] [place] [phone] Jhon Enriquez MD [address] [place] [address], [address] [place], [place] [phone] [facility] Start: 07-14-2024 End: 07-14-2024 Patient encounter procedure 07/14/2024 8:30 AM EST Office Visit [facility] [address] [place] [phone] Ibeth Fernandez PA [address] [facility] [address] [place], [place] [phone] Pre-op examination (Primary Dx) [facility] Comment on above: Pre-op examination ( Primary Dx) Start: 05-26-2024 End: 05-26-2024 Patient encounter procedure 05/26/2024 8:30 AM EDT Office Visit [facility] [address] [facility] [address] [place] [phone] Jhon Enriquez MD [address] [place] [address], [address] [place] [address] [facility] Start: 05-19-2024 Adult BMI Screening Adult BMI Screen ing [facility] Start: 05-19-2024 Tobacco Screening Tobacco Screening [facility] Start: 05-15-2024 End: 05-15-2024 Patient encounter procedure [facility] Comment on above: Arrived Start: 04-26-2024 End: 04-26-2025 MR Shoulder - right WO contrast MR shoulder right wo IV contrast Imaging Routine Internal derangement of right shoulder Expected: 04/26/2024 (Approximate), Expires: 04/26/2025 [facility] Work Phone: Comment on above: Expected: 04/26/2024 (Approximate), Expires: 04/26/2025 Start: 04-26-2024 End: 04-26-2024 Patient encounter procedure 04/26/2024 2:00 PM EDT Office Visit [facility] [address] [place] [phone] Ibeth Fernandez PA [address] [facility] [address] [place] [address] Acute pain of right shoulder (Primary Dx) [facility] Comment on above: Acute pain of right shoulder (Primary Dx) Start: 04-02-2024 COVID-19 Vaccine ( season) COVID-19 Vaccine ( season) [facility] Start: 04-02-2024 COVID-19 Vaccine ( season) COVID-19 Vaccine ( season) [facility] Start: 04-02-2024 Influenza vaccination N [facility] Start: 10-08-2023 End: 10-08-2023 Patient encounter procedure 10/08/2023 2:00 PM EST Appointment [facility] - Mammogram DEXA [address] [place] [address] [facility] Start: 10-01-2023 Screening for malign ant neoplasm of breast Mammogram [facility] Start: 04-02-2023 COVID-19 Vaccine ( season) COVID-19 Vaccine ( season) [facility] Start: 04-02-2023 Influenza vaccination P [facility] Start: 10-03-2022 Urine screening for protein Urine Microalbumin [facility] Start: 11-27-2021 Depression Screening Depression Scre ening [facility] Start: 2017 Administration of varicella zoster vaccine Zoster (Shingles) Vaccine (1 of 2) [facility] Start: 1997 Screening for malign ant neoplasm of cervix [facility] Start: 1988 Screening for malign ant neoplasm of cervix Pap Smear [facility] Start: 1986 DTaP,Tdap and Td Vaccines (1 - Tdap) DTaP,Tdap and Td Vaccines (1 - Tdap) [facility] Start: 1985 Adult BMI Follow Up Plan Adult BMI Follow Up Plan [facility] Start: 1985 Diabetic foot examination Diabetic Foot Exam [facility] Start: 1979 Depression Screening Depression Scre ening [facility] Start: 1967 Glaucoma screening Diabetic Op hthalmology Exam [facility] Start: 1967 Screening for malign ant neoplasm of colon [facility] THIN PREP TIS PAP AN D HR HPV DNA THIN PREP TIS PAP AND HR HPV DNA Pathology and Cytology Routine Well woman exam with routine gynecological exam Ordered: 09/04/2024 [facility] Comment on above: Ordered: 09/04/2024 XR Shoulder - right 2 Views XR shoulder 2+ views right Imaging Routine Acute pain of right shoulder 04/26/2024 2:12 PM EDT [facility] Immunizations Immunization Date Immunization Notes Care Provider Fa cole 05-13-2022 influenza virus vaccine, unspecified formulation Jhon Enriquez MD Work Phone: [facility] 04-28-2021 influenza, injectabl e, quadrivalent, preservative free Jhon Enriquez MD Work Phone: [facility] 09-12-2020 COVID-19, mRNA, LNP- S, PF, 100mcg/0.5mL Dose Jhon Enriquez MD Work Phone: [facility] 08-22-2020 COVID-19, mRNA, LNP- S, PF, 100mcg/0.5mL Dose Jhon Enriquez MD Work Phone: [facility] 05-27-2020 influenza virus vaccine, unspecified formulation Jhon Enriquez MD Work Phone: [facility] 05-08-2019 influenza virus vaccine, unspecified formulation Jhon Enriquez MD Work Phone: [facility] 05-23-2018 influenza virus vaccine, unspecified formulation Jhon Enriquez MD Work Phone: [facility] 04-28-2017 influenza, injectabl e, quadrivalent, contains preservative Jhon Enriquez MD Work Phone: [facility] 04-29-2016 influenza, injectabl e, quadrivalent, preservative free Jhon Enriquez MD Work Phone: [facility] 04-24-2015 influenza, seasonal, injectable Jhon Enriquez MD Work Phone: [facility] 05-07-2014 influenza, seasonal, injectable, preservative free Jhon Enriquez MD Work Phone: [facility] 04-26-2013 influenza virus vaccine, whole virus Jhon Enriquez MD Work Phone: [facility] 05-16-2012 influenza virus vaccine, whole virus Jhon Enriquez MD Work Phone: [facility] 04-29-2011 influenza virus vaccine, whole virus Jhon Enriquez MD Work Phone: [facility] 05-06-2010 influenza virus vaccine, whole virus Jhon Enriquez MD Work Phone: [facility] 05-01-2009 influenza virus vaccine, whole virus Jhon Enriquez MD Work Phone: [facility] Payers Date Payer Category Payer Blue [employer] Blue [employer] [id number] 2023 Blue Cross Blue [facility] - Other [id number] 2023 Unknown [id number] [id number]. [id number] 2023 Unknown [id number] 1965 Unknown [id number] 2.16.840.1.570007.3.579.2. 593 1967 Unknown [id number] 2.16.840.1.884661.3.579.2. 593 1967 Unknown [id number] 2.16.840.1.194203.3.579.2. 1286 1967 Unknown [id number] 2.16.840.1.235560.3.579.2. 1286 1967 Unknown [id number] 2.16.840.1.266013.3.579.2. 128 1967 Unknown [id number] 2.16.840.1.060623.3.579.2. 1286 1967 Unknown [id number] 2.16.840.1.163298.3.579.2. 1285 1967 Unknown [id number] 2.16.840.1.652745.3.579.2. 1285 1967 Unknown [id number] 2.16.840.1.728165.3.579.2. 1285 1967 Unknown [id number] 2.16.840.1.353159.3.579.2. 1285 1967 Unknown [id number] 2.16.840.1.974031.3.579.2. 1258 1967 Unknown [id number] 2.16.840.1.890872.3.579.2. 1258 1967 Unknown [id number] 2.16840.1.544749.3.579.2. 1258 1967 Unknown [id number] 2.16840.1.568144.3.579.2. 1258 1967 Unknown [id number] 2.840.1.221388.3.579.2. 1258 1967 Unknown [id number] 2.16840.1.582528.3.579.2. 1258 1967 Unknown [id number] 2.16840.1.507767.3.579.2. 1258 1967 Unknown [id number] 2.16840.1.018662.3.579.2. 1258 1967 Unknown [id number] 2.16840.1.384369.3.579.2. 1258 1967 Unknown [id number] 2.16840.1.110444.3.579.2. 1258 1967 Unknown [id number] 2.16840.1.169788.3.579.2. 1258 1967 Unknown [id number] 2.16.840.1.614650.3.579.2. 1258 1967 Unknown [id number] 2.16.840.1.936837.3.579.2. 1258 1967 Unknown [id number] 2.16.840.1.884800.3.579.2. 1259 1959 Unknown [id number] Social History Date Type Detail Facility Start: 07-08-2022 End: 01-25-2023 Tobacco smoking status NHIS Never smoked tobacco [facility] Start: 07-08-2022 End: 08-04-2024 Tobacco use and exposure Smokeless tobacco non-user [facility] Start: 05-19-2023 End: 07-17-2024 Alcohol intake Current non-drinker of alcohol (finding) [facility] Start: 11-27-2020 End: 09-01-2024 History of Social function [facility] Start: 11-27-2020 End: 09-01-2024 Social connection and isolation panel [facility] Do you belong to any clubs or organizations such as latter-day groups, unions, fraternal or athletic groups, or school groups? Yes [facility] Are you now , , , , never or living with a partner? Living with partner [facility] How often to you hav e a drink containing alcohol? Monthly or less [facility] How many standard dr inks containing alcohol do you have on a typical day? 1 or 2 [facility] How often do you hav e 6 or more drinks on 1 occasion? Never [facility] How hard is it for y ou to pay for the very basics like food, housing, medical care, and heating Not hard at all [facility] Do you feel stress - tense, restless, nervous, or anxious, or unable to sleep at night because your mind is troubled all the time - these days [OSQ] Not at all [facility] Start: 11-27-2020 Education 17 [facility] Start: 1965 Sex Assigned At Not on file [facility] Start: 08-30-2023 End: 04-26-2024 Alcohol intake Current drinker of alcohol (finding) [facility] Start: 01-23-2023 Alcohol Comment 1-2 drinks 2-4 times a month [facility] Start: 1965 Sex Assigned At Female [facility] Start: 01-06-2023 Gender identity Identifies as female gender (finding) [facility] Start: 03-07-2015 Sex Female (finding) [facility] Start: 07-14-2024 End: 09-04-2024 Alcoholic beverage intake Ex-drinker (finding) [facility] Start: 08-04-2024 Tobacco smoking status NHIS Ex-smoker [facility] History of tobacco use Current smoker [facility] History of tobacco use Cigarette Smoker [facility] Start: 08-04-2024 Alcohol Comment 2x/mth [facility] Clinical Notes 08-17-2023 to 09-04-2024 Umm Ferro MA - 09/04/2024 9:00 AM WILLIAN Sampson - 09/01/2024 9:00 AM Lore Chapa, PT - 08/30/2024 2:00 PM Lore Chapa, PT - 08/08/2024 1:30 PM ESTPatient Instructions Note Date & Type Note Facility 09-04-2024 History of Present illness Narrative Reason for Appointment: Patient ID: Lina Dinero is a 59 y.o. female who presents for Well Women Visit Patient presents today for Annual Exam. MEDICATIONS Current Outpatient Medications Medication Instructions allopurinol (ZYLOPRIM) 200 mg, Every morning citalopram (CELEXA) 20 mg, Oral, Daily Ferrous Sulfate ER (Slow Fe) 45 MG tablet controlled-release levothyroxine (SYNTHROID, LEVOXYL) 112 mcg, Daily ALLERGIES No Known Allergies PROBLEMS Active Ambulatory Problems Diagnosis Date Noted Acute pain of right shoulder 08/08/2024 Shoulder stiffness, right 08/08/2024 S/P arthroscopy of right shoulder 08/08/2024 Resolved Ambulatory Problems Diagnosis Date Noted No Resolved Ambulatory Problems Past Medical History: Diagnosis Date Breast pain, left CTS (carpal tunnel syndrome) Depression (CMS/HCC) Diabetes mellitus (CMS/HCC) Fatigue Frequent UTI Hypothyroidism (CMS/HCC) Irritable bowel disease Osteoporosis (CMS/HCC) Personal history of other medical treatment Rotator cuff syndrome Thoracic outlet bi-latetal Weight gain Yeast infection HISTORY PAST MEDICAL HISTORY SOCIAL HISTORY Past Medical History: Diagnosis Date Breast pain, left CTS (carpal tunnel syndrome) Depression (CMS/HCC) Diabetes mellitus (CMS/HCC) Fatigue Frequent UTI Hypothyroidism (CMS/HCC) Irritable bowel disease Disorder Osteoporosis (CMS/HCC) Personal history of other medical treatment Right Kidney UVJ Rotator cuff syndrome Thoracic outlet bi-latetal Weight gain Yeast infection Social History Tobacco Use Smoking status: Former Current packs/day: 0.25 Types: Cigarettes Smokeless tobacco: Never Substance Use Topics Alcohol use: Not Currently Comment: 2x/mth Drug use: Never FAMILY HISTORY Family History Problem Relation Name Age of Onset Hypertension Mother Ashley Cancer Mother Ashley Heart disease Mother Ashley Cancer Father Farhat Hypertension Father Farhat Cancer Mother's Sister Nat SURGICAL HISTORY Past Surgical History: Procedure Laterality Date BLADDER SURGERY 1972 BREAST SURGERY 1992 REDUCTION CARPAL TUNNEL RELEASE Right 07/12/2018 DR PELAEZ CARPAL TUNNEL RELEASE Left 02/26/2023 DR PELAEZ DORSAL COMPARTMENT RELEASE Right 07/12/2018 DEQUERVEINS ; DR PELAEZ GASTRIC BYPASS 12/07/2023 HYSTERECTOMY 2008 OTHER SURGICAL HISTORY 2000 URETERO VISCAL JUNCTION OVARIAN CYST SURGERY 07/2012 SHOULDER ARTHROSCOPY W/ ROTATOR CUFF REPAIR Right 07/21/2024 W/ SAD & BICEPS TENODESIS ; DR PELAEZ TONSILLECTOMY VENTRAL HERNIA REPAIR 07/2009 (2ND SX FOR REMOVAL OF SCAR TISSUE FOLLOWING INITIAL REPAIR) REVIEW OF SYSTEMS Review of Systems: Review of Systems Constitutional: Negative. HENT: Negative. Eyes: Negative. Respiratory: Negative. Cardiovascular: Negative. Gastrointestinal: Negative. Genitourinary: Negative. Musculoskeletal: Negative. Skin: Negative. Neurological: Negative. All other systems reviewed and are negative. Hematological: Negative. Endocrine: Negative. Allergic/Immunologic: Negative. OBJECTIVE Objective: Physical Exam Constitutional: Appearance: Normal appearance. She is well-developed. Genitourinary: Vulva normal. Vaginal cuff intact. Right Adnexa: not tender and no mass present. Left Adnexa: not tender and no mass present. Cervix is absent. No cervical discharge. Uterus is absent. Breasts: Breasts are soft. Right: Normal. Left: Normal. HENT: Head: Normocephalic. Nose: Nose normal. Mouth/Throat: Mouth: Mucous membranes are moist. Cardiovascular: Rate and Rhythm: Normal rate and regular rhythm. Pulmonary: Effort: Pulmonary effort is normal. Abdominal: General: Bowel sounds are normal. There is no distension. Palpations: Abdomen is soft. Tenderness: There is no abdominal tenderness. There is no guarding or rebound. Musculoskeletal: General: No swelling. Normal range of motion. Cervical back: Normal range of motion. Right lower leg: No edema. Left lower leg: No edema. Neurological: General: No focal deficit present. Mental Status: She is alert and oriented to person, place, and time. Skin: General: Skin is warm and dry. Psychiatric: Mood and Affect: Mood normal. Behavior: Behavior normal. Vitals and nursing note reviewed. Exam conducted with a mechanical design engineer facilities present. Vitals: Estimated body mass index is 26.74 kg/m as calculated from the following: Height as of 07/14/24: 5' 4 . Weight as of this encounter: 155 lb 12.8 oz. BP: 100/70 No LMP recorded. Patient has had a hysterectomy. ASSESSMENT & PLAN ICD-10-CM 1. Well woman exam with routine gynecological exam Z01.419 THIN PREP TIS PAP AND HR HPV DNA 2. Encounter for screening mammogram for malignant neoplasm of breast Z12.31 Bilateral screening mammogram Bilateral screening mammogram 3. Postmenopausal state Z78.0 DEXA bone density Annual Exam: Patient presents today for an annual exam. Patient states she is doing well and has no complaints. Pap was obtained without difficulty. Orders Placed This Encounter Procedures Bilateral screening mammogram DEXA bone density Follow Up: Patient is to return in one year for annual unless needed otherwise. Documented by Umm Ferro MA on behalf of: zeyad albert documented in this encounter [facility] 09-01-2024 History of Present illness Narrative Images from the original note were not included. HISTORY OF PRESENT ILLNESS: POST OP PT Lina Dinero is an 59 y.o. @ female. No surgery found s/p surgery onNo surgery found (EST PT) (R) SHOULDER SCOPE W/ RCR, SAD & BICEPS TENODESIS 07/21/24 (6WKS)- DOING WELL- MINIMAL DISCOMFORT- CONTINUES PT 2/WK; INCREASE ROM- WEARING ULTRA SLING- NOTES SOME TIGHTNESS- +TYLENOL PRN- PT IS PLEASED WITH PROGRESS REVIEW OF SYSTEMS: General: Denies fever, fatigue or weight loss Lungs: Denies SOB Cardio: Denies chest pain GI: Denies indigestion or abdominal pain Neuro: Denies numbness or tingling, denies new onset paralysis Musculoskeletal: ( see note) PHYSICAL EXAM: Right Shoulder Exam Tenderness The patient is experiencing no tenderness (compartments soft). Range of Motion Active abduction: 50 Passive abduction: 90 (gentle pendulums easily) Extension: 50 External rotation: 70 Forward flexion: 60 (PROM 115) Internal rotation 0 degrees: L3 Muscle Strength Right shoulder normal muscle strength: Fires deltoid and rotator cuff. Other Erythema: absent Scars: absent (portals well healed) Sensation: normal Pulse: present Comments: The operative upper extremity was noted to be neurovascularly unchanged. Sensation to light touch was intact to all dermatomes to operative upper extremity. Radial and ulnar pulses were present and equal bilaterally. Patient was able to motor elbow wrist and fingers in all anatomic planes with 5 out of 5 strength on the operative upper extremity. Compartments were soft to operative upper extremity. There was no evidence of infection or ascending lymphangitis to operative extremity. Procedures No orders of the defined types were placed in this encounter. S/p SAD, Rotator cuff repair and Biceps tenodesis. ASSESSMENT: ICD-10-CM 1. S/P arthroscopy of right shoulder Z98.890 Assessment & Plan 1. Post-operative status following right shoulder arthroscopy. She exhibits stiffness at the terminal range of motion. A comprehensive discussion was held regarding the continuation of passive and the initiation of active range of motion exercises. It is recommended that she abstains from bearing weight on the right arm, and refrains from lifting, pushing, or pulling activities. She expressed a desire to resume work on Wednesday, which was addressed by advising against the use of the right arm for any weight-bearing or resistance tasks. However, she may engage in keyboard work if necessary. She will likely start home exercises as discussed at bedside for active range of motion. She will get a familiarity of these with therapy. Follow-up The patient will follow up in 5 weeks to evaluate her range of motion and overall progress. PROCEDURE The patient underwent right shoulder arthroscopy. Questions answered in laymen terms at the bedside. The diagnosis, home exercise plan and any ongoing restrictions/ recommendations reviewed. If unable to be reached in office, I recommend evaluation at nearest Emergency Room if any symptoms worsened or new symptoms develop for requiring urgent evaluation. documented in this encounter [facility] 08-30-2024 History of Present illness Narrative Images from the original note were not included. Physical Therapy Physical Therapy Evaluation Visit Patient Name: Lina Dinero Today's Date: 08/30/2024 Encounter Diagnoses Name Primary? Acute pain of right shoulder Yes Shoulder stiffness, right S/P arthroscopy of right shoulder Visit number: 6 Supervised time: 25 min Total time: 30 min Time in: 1:50 pm Time out: 2:20 pm Subjective Lina Dinero 59 y.o. female presents to physical therapy w/ chief c/o R shoulder pain. Mechanism of Onset: s/p RCR, SAD, biceps tenodesis 07/21/24 Current deficits: pain, decreased ROM/flexibility, weakness Pain: denies pain upon arrival, increased pain/soreness R scap last night Location: R shoulder Aggravating Factors: movement, tensing up, although aware she is PROM only and trying to follow protocol, ADLs/self care and position change at times Relieving factors: rest, ice Precautions: PROM only until cleared Objective Port sites healing well no s/s of infection, no noted swelling PROM: flex to 45, abd to 25, ER to neutral, ext to neutral Great difficulty relaxing and not guarding AROM/strength at shoulder n/a per protocol/precautions AROM elbow, forearm, wrist, hand WNL Treatment Interventions Manual Therapy: PROM, gentle massage x 10 min some difficulty relaxing but improving since IE Therapeutic Exercise: per GERMAN grid, ROM, flexibility, strength x 15 min sup, 17 total (PROM only at shoulder to start), added pulleys today x 2 min Modalities: CP/ESU prn, declined Assessment/Plan R shoulder pain, decreased ROM/flexibility, weakness causing great difficulty with Adls/self care, decreased QOL Pt reports improved tolerance to stretches. Noted improvement with PROM today, slow steady improvement in all planes with less pain reported and guarding. Able to get over 90 flex and scap today with PROM. Pt declined ice and will use at home. documented in this encounter [facility] 08-08-2024 History of Present illness Narrative Images from the original note were not included. Physical Therapy Physical Therapy Evaluation Visit Patient Name: Lina Dinero Today's Date: 08/08/2024 Encounter Diagnoses Name Primary? Acute pain of right shoulder Yes Shoulder stiffness, right S/P arthroscopy of right shoulder Visit number: 1 Subjective Lina Dinero 59 y.o. female presents to physical therapy w/ chief c/o R shoulder pain. Mechanism of Onset: s/p RCR, SAD, biceps tenodesis 07/21/24 Current deficits: pain, decreased ROM/flexibility, weakness Pain: 1/10 at rest up to severe with sharp twinges at times Location: R shoulder Aggravating Factors: movement, tensing up, although aware she is PROM only and trying to follow protocol, ADLs/self care and position change at times Relieving factors: rest, ice Precautions: PROM only until cleared Objective Port sites healing well no s/s of infection, no noted swelling PROM: flex to 45, abd to 25, ER to neutral, ext to neutral Great difficulty relaxing and not guarding AROM/strength at shoulder n/a per protocol/precautions AROM elbow, forearm, wrist, hand WNL Treatment Interventions Education: HEP education with demonstration, Educated on Eval Findings and POC, protocol/precautions and importance x 10 min self care Manual Therapy: Gentle PROM, gentle massage x 10 min through very limited ROM great difficulty with guarding/pain Therapeutic Exercise: per GERMAN grid, ROM, flexibility, strength x 15 min sup (PROM only at shoulder to start) Therapeutic Activity: Exercises to improve dynamic activities, functional tasks, functional mobility to return to prior activity level Modalities: CP/ESU prn. CP only today x 10 min Assessment/Plan R shoulder pain, decreased ROM/flexibility, weakness causing great difficulty with Adls/self care, decreased QOL Patient Goals Short Term Goal #1: pt will demo R shoulder AROM grossly WNL all planes pain free Short Term Goal #2: pt will demo R shoulder and elbow strenght grossly >/= 4/5 MMT all planes pain free at DC Short Term Goal #3: pt will be ind with HEP for maintenance/progression prn at DC Pt will benefit from skilled PT to address the above impairments for 1-3x/week for 12-16 weeks pending pt needs/progress, PROM only to start per order/script. I hereby deem this POC medically necessary. Please sign below. Date: documented in this encounter [facility] 08-04-2024 History of Present illness Narrative Images from the original note were not included. HISTORY OF PRESENT ILLNESS: POST OP PT Lina Dinero is an 59 y.o. @ female. (EST PT) 1ST P/O (R) SHOULDER SCOPE W/ RCR, SAD & BICEPS TENODESIS 07/21/24 (2WKS) PT PRESENT WITH HER SHOULDER BRACE. STATES THAT SHE FEELS IF EVERYTHING IS HEALING. WELL. SUTURES INTACT, REMOVED. NO S/S OF INFECTION. DENIES N/T. DENIES SWELLING. NOT TAKING ANY KIND OF PAIN MEDS. PT NOTES THAT SHE IS STILL SORE. SHE DOES NOTICE THAT IF SHE IS TO MOVE TO FAST SHE DOES HAVE SOME PAIN. REVIEW OF SYSTEMS: General: Denies fever, fatigue or weight loss Lungs: Denies SOB Cardio: Denies chest pain GI: Denies indigestion or abdominal pain Neuro: Denies numbness or tingling, denies new onset paralysis Musculoskeletal: ( see note) PHYSICAL EXAM: Right Shoulder Exam Tenderness The patient is experiencing no tenderness (compartments soft). Range of Motion Right shoulder passive abduction: gentle pendulums easily. Muscle Strength Right shoulder normal muscle strength: Fires deltoid and rotator cuff, pendulums easily. Other Erythema: absent Scars: present (Portals well healing, sutures removed, no erythema, drainge or discharge, no dehisence) Sensation: normal Pulse: present Comments: The operative upper extremity was noted to be neurovascularly unchanged. Sensation to light touch was intact to all dermatomes to operative upper extremity. Radial and ulnar pulses were present and equal bilaterally. Patient was able to motor elbow wrist and fingers in all anatomic planes with 5 out of 5 strength on the operative upper extremity. Compartments were soft to operative upper extremity. There was no evidence of infection or ascending lymphangitis to operative extremity. Procedures No orders of the defined types were placed in this encounter. ASSESSMENT: ICD-10-CM 1. S/P arthroscopy of right shoulder Z98.890 S/p SAD, Rotator cuff repair and Biceps tenodesis. Assessment & Plan 1. Post-operative status following right shoulder arthroscopy. A comprehensive discussion regarding the surgical procedure was conducted at her bedside. She expressed gratitude and satisfaction with her progress. She is advised to continue using the sling for an additional 4 weeks, with intermittent removal to perform exercises aimed at improving hand, wrist, and elbow range of motion. She is strictly prohibited from lifting objects heavier than a coffee cup with her right arm. A regimen of physical therapy focusing on passive range of motion will be initiated, excluding any active range of motion, strengthening, or resistance exercises. She is permitted to resume work remotely as per her request, starting with 4 hours per day for the first week, increasing to 6 hours per day in the second week, and extending to 8 hours per day in the third and fourth weeks prior to her follow-up appointment. This remote work arrangement is necessary due to her current inability to drive. Follow-up The patient will follow up in 4 weeks. PROCEDURE The patient underwent right shoulder arthroscopy. RTW 4 hours a day next week 6 hours day 2nd wk then 8 hours a day for 2 wks all remote pending recheck in 4 wks. Questions answered in laymen terms at the bedside. The diagnosis, home exercise plan and any ongoing restrictions/ recommendations reviewed. If unable to be reached in office, I recommend evaluation at nearest Emergency Room if any symptoms worsened or new symptoms develop for requiring urgent evaluation. documented in this encounter [facility] 08-04-2024 Instructions WILLIAN Gonsalves - 08/04/2024 10:15 AM EST Discussed patient being 2 wks s/p Rotator cuff surgery: surgery discussed at bedside. Continue in sling until follow up to protect repair. ( 6 wks post op) May remove sling to shower and change clothing. Also remove sling 2- 3 times a day to continue home exercises for hand, wrist and elbow range of motion. No weight in operative arm. No lifting anything heavier than coffee cup. Referral for Therapy given/sent electronically, please call Therapy facility to schedule as soon as possible documented in this encounter [facility] 08-01-2024 Miscellaneous Notes Refill request documented in this encounter [facility] 08-01-2024 Telephone encounter Note Refill request [facility] 07-20-2024 Telephone encounter Note Post op pain rx. PDMP reviewed [facility] 07-20-2024 Miscellaneous Notes Post op pain rx. PDMP reviewed documented in this encounter [facility] 07-14-2024 History of Present illness Narrative Images from the original note were not included. GENERAL HISTORY AND PHYSICAL: NAME: Lina Dinero : 1965 HISTORY OF PRESENT ILLNESS: Lina Dinero is an 59 y.o. @ female. Here for surgery instructions (R) SHOULDER SCOPE 07/21/24 [facility] PAST MEDICAL HISTORY: Past Medical History: Diagnosis Date Breast pain, left Depression (CMS/HCC) Fatigue Frequent UTI Hypothyroidism (CMS/HCC) Irritable bowel disease Disorder Osteoporosis (CMS/HCC) Personal history of other medical treatment Right Kidney UVJ Weight gain Yeast infection PAST SURGICAL HISTORY: Past Surgical History: Procedure Laterality Date BREAST SURGERY 1991 breast reduction CARPAL TUNNEL RELEASE Right 07/12/2018 CTR W/ 1ST DORSAL COMP RELEASE - DR PELAEZ CARPAL TUNNEL RELEASE Left 02/26/2023 Dr Pelaez GASTRIC BYPASS 12/07/2023 HYSTERECTOMY 2008 OTHER SURGICAL HISTORY 2000 URETERO VISCAL JUNCTION OVARIAN CYST SURGERY 07/2012 TONSILLECTOMY VENTRAL HERNIA REPAIR 07/2009 (2ND SX FOR REMOVAL OF SCAR TISSUE FOLLOWING INITIAL REPAIR) SOCIAL HISTORY: Social History Occupational History Not on file Tobacco Use Smoking status: Never Smokeless tobacco: Never Substance and Sexual Activity Alcohol use: Yes Comment: 1-2 drinks 2-4 times a month Drug use: Not on file Sexual activity: Not on file ALLERGIES: No Known Allergies MEDICATIONS: Current Outpatient Medications Medication Instructions allopurinol (ZYLOPRIM) 200 mg, Oral, Every morning citalopram (CELEXA) 20 mg, Oral, Daily hydrocortisone 1 % cream APPLY SPARINGLY TO AFFECTED AREA TWICE A DAY levothyroxine (SYNTHROID, LEVOXYL) 112 mcg, Oral, Daily REVIEW OF SYSTEMS: Review of Systems Constitutional: Negative for fatigue, fever and unexpected weight change. Eyes: Negative for redness and visual disturbance. Gastrointestinal: Negative for abdominal pain. Denies Indigestion Musculoskeletal: See note: Skin: Negative for color change and rash. Neurological: Negative for light-headedness and numbness. Vitals: There is no height or weight on file to calculate BMI. PHYSICAL EXAM: Physical Exam Constitutional: General: She is not in acute distress. Appearance: Normal appearance. HENT: Head: Normocephalic and atraumatic. Right Ear: External ear normal. Left Ear: External ear normal. Nose: Nose normal. No rhinorrhea. Mouth/Throat: Mouth: Mucous membranes are moist. Pharynx: No posterior oropharyngeal erythema. Eyes: Extraocular Movements: Extraocular movements intact. Conjunctiva/sclera: Conjunctivae normal. Cardiovascular: Rate and Rhythm: Normal rate and regular rhythm. Pulses: Normal pulses. Heart sounds: No murmur heard. Pulmonary: Effort: Pulmonary effort is normal. No respiratory distress. Breath sounds: Normal breath sounds. No wheezing or rhonchi. Abdominal: Palpations: Abdomen is soft. Tenderness: There is no abdominal tenderness. Musculoskeletal: Cervical back: Normal range of motion and neck supple. Lymphadenopathy: Cervical: No cervical adenopathy. Skin: General: Skin is warm and dry. Findings: No erythema or rash. Neurological: General: No focal deficit present. Mental Status: She is alert and oriented to person, place, and time. Psychiatric: Mood and Affect: Mood normal. Behavior: Behavior normal. No orders of the defined types were placed in this encounter. ASSESSMENT: ICD-10-CM 1. Pre-op examination Z01.818 PLAN: This patient presents for preadmission testing for upcoming surgery. Complete history with medical, surgery, and current allergy and medication list obtained. Consent for surgery signed and witnessed after verbal consent to perform surgery received. All questions answered and proposed surgery scheduled. Patient presents today for fitting of right L3670 Shoulder Orthosis, Acromioclavicular, Prefabricated, Off the Shelf today. Brace is used to immobilize and increase stability of the shoulder joint to allow for full and complete healing. Fitting and adjustments were done under physician order and supervision. Patient was placed in the brace and all straps were adjusted for proper fit. Brace was dispensed to the patient and [employer] Patient Agreement was completed and signed. Warranty information was given and explained to the patient with good understanding. Proper care and fitting was also explained to the patient with good understanding. SX INSTRUCTIONS 07/14/24 @ 8:30AM NO PA TESTING REQ (PER [facility] ALCARAZ) ULTRASLING DISPENSED No follow-ups on file. documented in this encounter [facility] 06-21-2024 Miscellaneous Notes Refill request documented in this encounter [facility] 06-21-2024 Telephone encounter Note Refill request [facility] 05-24-2024 Miscellaneous Notes Refill request documented in this encounter [facility] 05-24-2024 Telephone encounter Note Refill request [facility] 05-15-2024 History of Present illness Narrative Images from the original note were not included. HISTORY OF PRESENT ILLNESS: EST PT Lina Dinero is an 59 y.o. @ female. EST PT; MOST RECENT VISIT WITH [facility] -RECHECK RT SHOULDER PAIN- S/P SA CORTISONE INJ 04/26/24; NOTES SOME RELIEF - HERE FOR MRI RT SHOULDER RESULTS 05/02/24 EPIC XRAY RT SHOULDER EPIC 04/26/24 MRI RT SHOULDER 05/02/24 EPIC CORTISONE INJ (SA) 04/26/24 NO MDP/PREDNISONE HX CORTISONE INJ YRS AGO NO PAIN MANAGEMENT SYMPTOMS LESS SEVERE SINCE INJ- PAIN TOP/POSTERIOR SHOULDER +CLICKING- +BURNING- +WEAKNESS- PAINFUL ROM; DIFFICULTY REACHING ACROSS BODY- +TYLENOL- PT IS UNABLE TO TAKE IBUPROFEN DUE TO RECENT GASTRIC BYPASS HX B/L CTR PER DR PELAEZ ALLERGIES: No Known Allergies HOME MEDICATIONS: Current Outpatient Medications Medication Instructions allopurinol (ZYLOPRIM) 200 mg, Oral, Every morning citalopram (CELEXA) 20 mg, Oral, Daily hydrocortisone 1 % cream APPLY SPARINGLY TO AFFECTED AREA TWICE A DAY levothyroxine (SYNTHROID, LEVOXYL) 112 mcg, Oral, Daily PHYSICAL EXAM: Shoulder Musculoskeletal Exam Inspection Right Right shoulder inspection is normal. Ecchymosis: none Peripheral edema: none Atrophy: none Masses: none Palpation Right Crepitus: no crepitus Increased warmth: none Tenderness: present Anterior shoulder: mild Posterior shoulder: moderate AC joint: mild Rotator cuff: moderate Greater tuberosity: moderate Trapezius: mild Medial scapula: mild Superior pole of scapula: none Inferior pole of scapula: none Bicipital groove: mild Proximal biceps: mild Distal biceps: none Lateral arm: moderate Elbow: none Range of Motion Right Right shoulder range of motion is normal. Active ROM: abnormal and pain. Passive ROM: pain. Right shoulder active abduction: + pain passing 90 degrees. Internal rotation: L2. Strength Right External rotation: 4-/5. External rotation is affected by pain. Internal rotation: 4+/5. Internal rotation is affected by pain. Abduction: 3/5. Abduction is affected by pain. Biceps: 5/5. Triceps: 5/5. Neurovascular Right Radial pulse: normal and 2+ Capillary refill: <3 sec Axillary nerve sensory distribution: normal Scapula Right Right shoulder scapula is normal. Position: normal Winging: none Special Tests Right Rotator Cuff Signs Neer's test: positive Roman test: positive Supraspinatus: positive Painful arc test: positive Biceps/nazario Signs Clicking/popping: positive Speed's test: negative Vitals: There is no height or weight on file to calculate BMI. Tobacco Use: Low Risk (04/26/2024) Patient History Smoking Tobacco Use: Never Smokeless Tobacco Use: Never Passive Exposure: Not on file Alcohol Use: Not At Risk (11/27/2020) Received from [employer], [employer] Frequency of Alcohol Consumption: Monthly or less Average Number of Drinks: 1 or 2 Frequency of Binge Drinking: Never IMAGING: Procedures No orders of the defined types were placed in this encounter. ASSESSMENT: ICD-10-CM 1. Internal derangement of right shoulder M24.811 PLAN: We have answered all the patients questions and explained the patients condition, decision making and plan including the risks and benefits associated with said plan in layman''s terms in a language the patient could understand easily. If patient''s symptoms significantly worsen and they cannot get a hold of us or their family physician, we have recommended that the patient proceed to the nearest emergency department (room). Dr. Pelaez obtained history and examined the patient, I am acting as scribe for Dr. Pelaez/anthony, PLAN: We have reviewed prior (R) shoulder xrays and discussed (R) shoulder MRI results with patient at bedside : SLAP lesion with rotator cuff tear and impingement syndrome. After examination of her right shoulder today we have discussed both surgical and nonsurgical intervention, with the risks and benefits of both. Patient is requesting a (R) shoulder scope as the pain is affecting her ADL's - limited ROM secondary to pain. She is understanding If a repair is made she could be in a sling for at least 6 weeks and not lifting anything heavier than a coffee cup for at least 12 weeks/ We have discussed her HEP and restrictions and will see her back on the day of sx. *Patient states that she is going to [facility] in June and would most likely want to proceed with sx in July. Surgery - Diagnostic and operative (R) shoulder scope w/SAD, RCR, SLAP repair, and bicep tenodesis. We have discussed both surgical and nonsurgical treatment options with the patient at length and the risks and benefits associated with both. The patient is requesting surgical intervention because they have not responded to outpatient treatment options including but not limited to rest ice, and home exercise program. Pain and decreased range of motion are affecting the patient''s ability to sleep and activities of daily living and we have recommended surgical intervention. Td Pelaez D.O. documented in this encounter [facility] 04-26-2024 History of Present illness Narrative Associated Order(s): L Inj/Asp: R subacromial bursa Post-Procedure Diagnose(s): Internal derangement of right shoulder Images from the original note were not included. HISTORY OF PRESENT ILLNESS: EST PT Lina Dinero is an 59 y.o. @ female. EST PT WITH NEW C/O RT SHOULDER PAIN OFF AND ON FOR YRS- SYMPTOMS GRADUALLY INCREASING XRAY RT SHOULDER TODAY EPIC 04/26/24 HX CORTISONE INJ YRS AGO PAIN TOP/POSTERIOR SHOULDER- +CLICKING- +BURNING- +WEAKNESS- PAINFUL ROM- DIFFICULTY RAISING ABOVE SHOULDER LEVEL - +TYLENOL- PT IS UNABLE TO TAKE IBUPROFEN DUE TO RECENT GASTRIC BYPASS ALLERGIES: No Known Allergies HOME MEDICATIONS: Current Outpatient Medications Medication Instructions allopurinol (ZYLOPRIM) 200 mg, Oral, Every morning citalopram (CELEXA) 20 mg, Oral, Daily hydrocortisone 1 % cream APPLY SPARINGLY TO AFFECTED AREA TWICE A DAY levothyroxine (SYNTHROID, LEVOXYL) 112 mcg, Oral, Daily PHYSICAL EXAM: Shoulder Musculoskeletal Exam Inspection Right Right shoulder inspection is normal. Ecchymosis: none Peripheral edema: none Atrophy: none Masses: none Palpation Right Crepitus: no crepitus Increased warmth: none Tenderness: present Anterior shoulder: mild Posterior shoulder: moderate AC joint: mild Rotator cuff: moderate Greater tuberosity: moderate Trapezius: mild Medial scapula: mild Superior pole of scapula: none Inferior pole of scapula: none Bicipital groove: none Proximal biceps: none Distal biceps: none Lateral arm: moderate Elbow: none Range of Motion Right Right shoulder range of motion is normal. Active ROM: pain. Passive ROM: pain. Right shoulder active abduction: + pain passing 90 degrees. Internal rotation: L2. Strength Right External rotation: 4-/5. External rotation is affected by pain. Internal rotation: 4+/5. Internal rotation is affected by pain. Abduction: 3/5. Abduction is affected by pain. Biceps: 5/5. Triceps: 5/5. Neurovascular Right Radial pulse: normal and 2+ Capillary refill: <3 sec Axillary nerve sensory distribution: normal Scapula Right Right shoulder scapula is normal. Position: normal Winging: none Special Tests Right Rotator Cuff Signs Neer's test: positive Roman test: positive Painful arc test: positive Biceps/nazario Signs Clicking/popping: positive Speed's test: negative General Constitutional: appears stated age Labored breathing: no Neurological: alert and oriented x3 Skin: intact Lymphadenopathy: none Vitals: Body mass index is 32.1 kg/m . Tobacco Use: Low Risk (04/26/2024) Patient History Smoking Tobacco Use: Never Smokeless Tobacco Use: Never Passive Exposure: Not on file Alcohol Use: Not At Risk (11/27/2020) Received from [employer], [employer] Frequency of Alcohol Consumption: Monthly or less Average Number of Drinks: 1 or 2 Frequency of Binge Drinking: Never IMAGING: XR shoulder 2+ views right Imaging Result: L Inj/Asp: R subacromial bursa on 04/26/2024 3:38 PM Indications: pain Details: 21 G needle, posterior approach Medications: 40 mg methylPREDNISolone acetate 40 MG/ML Outcome: tolerated well, no immediate complications Utilizing aseptic technique with universal precautions . Pt given injection Right Shoulder SA space (Code 21153 RT) Procedure, treatment alternatives, risks and benefits explained, specific risks discussed. Consent was given by the patient. Orders Placed This Encounter Procedures L Inj/Asp This order was created via procedure documentation XR shoulder 2+ views right Order Specific Question: Is the patient ? Answer: No Order Specific Question: Reason for exam: Answer: PAIN MR shoulder right wo IV contrast Standing Status: Future Standing Expiration Date: 04/26/2025 Scheduling Instructions: MRI RT SHOULDER WITHOUT CONTRAST [place]LIN [place]; PLEASE CALL PT TO SCHEDULE Order Specific Question: Is the patient ? Answer: No Order Specific Question: Reason for exam: Answer: RT SHOULDER INTERNAL DERANGEMENT ASSESSMENT: ICD-10-CM 1. Acute pain of right shoulder M25.511 XR shoulder 2+ views right 2. Internal derangement of right shoulder M24.811 MR shoulder right wo IV contrast PLAN: F/U Dr. Pelaez s/p MRI and SA injection to discuss need for possible: Rotator cuff repair, if atrophy consider timing of replacement. Symptoms for several years. Previously tolerable with Nsaids. Now unable to take with gastirc bypass surgery.. weakness also present for several years.. suspect cuff tear based on xray and exam.. pt consenting to injection, but would like to move forward with MRI to get more information given weakness and pain.. Denies injury, but secondary complaint of sacral pain. Judie Sloan at bedside for exam. + tenderness to sacrum/ coccyx.. no evidence of infection/ abscess.. pt had MRI pelvis 2018 [facility], within normal limits.. recommend Donut/ and will xray if not improving.. timing of pain around recent surgeries, but pt denies excessive bed rest. Will watch for pilonidal cyst formation. Surgical and non surgical tx options discussed with conservative measures reviewed. Recommend ICE/ ELEVATION, continued activity modification in interim. Pt would consider surgical intervention to possibly improve symptoms. Questions answered in laymen terms at the bedside. The diagnosis, home exercise plan and any ongoing restrictions/ recommendations reviewed. If unable to be reached in office, I recommend evaluation at nearest Emergency Room if any symptoms worsened or new symptoms develop for requiring urgent evaluation. documented in this encounter [facility] 09-18-2023 Miscellaneous Notes Refill [email or web address] History of Present illness Narrative Subjective Patient ID: Lina Dinero is a 58 y.o. female. Comes in for preoperative evaluation. She is going to have bariatric surgery. Preoperative labs reviewed. She has been off of her Jardiance due to the cost. Her hemoglobin A1c is below 7%. Chest x-ray and EKG unremarkable. Previous surgical history reviewed. No history of bleeding or clotting or anesthetic reaction other than 1 time she had some vomiting. No family history of anesthetic reaction, bleeding or clotting. She has no known cardiac disease. No chest pain, swelling, or shortness of breath. The following portions of the patient's history were reviewed and updated as appropriate: allergies, current medications, past family history, past medical history, past social history, past surgical history, and problem list. Review of Systems Objective Physical Exam Constitutional: Comments: Blood pressure acceptable Neck: Vascular: No carotid bruit. Comments: No thyroid enlargement or neck mass Cardiovascular: Rate and Rhythm: Normal rate and regular rhythm. Heart sounds: No murmur heard. Pulmonary: Effort: Pulmonary effort is normal. Breath sounds: Normal breath sounds. Abdominal: General: There is no distension. Palpations: Abdomen is soft. Tenderness: There is no abdominal tenderness. Musculoskeletal: Right lower leg: No edema. Left lower leg: No edema. Assessment/Plan Medically cleared for surgery at usual risk. She has a dermatitis on her left ring finger related to the metal in her wedding ring. [id number]-[id number] hydrocortisone does not resolve it. Trial of clobetasol. Diagnoses and all orders for this visit: Class 3 severe obesity due to excess calories without serious comorbidity with body mass index (BMI) of 45.0 to 49.9 in adult ([facility]) Allergic contact dermatitis due to metals - clobetasoL (TEMOVATE) 0.05 % cream; Apply 1 Application topically in the morning and 1 Application before bedtime. [facility]-17-2023 Miscellaneous Notes Refill request [facility] 08-17-2023 Telephone encounter Note [facility] System Evaluation note Diagnosis Type 2 diabetes mellitus without complication, without long-term current use of insulin ([facility]) documented in this encounter [facility]* Diagnosis Class 3 severe obesity due to excess calories without serious comorbidity with body mass index (BMI) of 45.0 to 49.9 in adult ([facility])- Primary Allergic contact dermatitis due to metals documented in this encounter [facility]* Diagnosis Internal derangement of right shoulder- Primary documented in this encounter [facility]* Diagnosis Acute cystitis without hematuria- Primary documented in this encounter [facility]* Diagnosis Pre-op examination- Primary documented in this encounter [facility]* Diagnosis Acute pain of right shoulder- Primary Internal derangement of right shoulder documented in this encounter [facility]* Diagnosis Internal derangement of right shoulder- Primary documented in this encounter [facility]* Diagnosis S/P arthroscopy of right shoulder- Primary Internal derangement of right shoulder documented in this encounter [facility]* Diagnosis Acute pain of right shoulder- Primary Shoulder stiffness, right S/P arthroscopy of right shoulder documented in this encounter [facility]* Diagnosis Acute pain of right shoulder- Primary Shoulder stiffness, right S/P arthroscopy of right shoulder documented in this encounter [facility]* Diagnosis Acute pain of right shoulder- Primary Shoulder stiffness, right S/P arthroscopy of right shoulder documented in this encounter [facility]* Diagnosis Acute pain of right shoulder- Primary Shoulder stiffness, right S/P arthroscopy of right shoulder documented in this encounter [facility]* Diagnosis Acute pain of right shoulder- Primary Shoulder stiffness, right S/P arthroscopy of right shoulder documented in this encounter [facility]* Diagnosis S/P arthroscopy of right shoulder- Primary documented in this encounter [facility]* Diagnosis Well woman exam with routine gynecological exam Routine gynecological examination Encounter for screening mammogram for malignant neoplasm of breast Postmenopausal state Asymptomatic postmenopausal status (age-related) (natural) documented in this encounter [facility] HealthcareInstructionsNot on filedocumented in this encounterProMediut Health SystemInstructionsNot on filedocumented in this encounterProMediut Health SystemInstructionsNot on filedocumented in this encounterProMediut Health SystemReason for visit Narrative* Consultation (Routine) - Authorized Specialty Diagnoses / Procedures Referred By Contac t Referred To Contact Physical Therapy Diagnoses S/P arthroscopy of right shoulder Procedures [place] OFFICE/OUTPATIENT NEW HIGH MDM 60 MINUTES Ibeth Fernandez PA [address] [facility] [address] [place] [address] Phone: tel: fax: Bigg Chapa, PT [address] [place] [address] Phone: tel: fax: Referral ID Status Reason Start Date Expiration Date Visits Requested Visits Authorized [id number] Authorized Consult and Treat 08/04/2024 08/01/2025 99 99 [facility] Summary Purpose Family History No Family History Records FoundNo Family History Records FoundNo Family History Records FoundNo Family History Records FoundNo Family History Records FoundNo Family History Records Found Advance Directives Latest Code Status on File Code Status Date Activated Date Inactivated Comments Full Code 08/13/2017 1:42 PM 08/14/2017 5:50 PM Date Activated Date Inactivated Comments 08/13/2017 1:42 PM 08/14/2017 5:50 PM Reason for Referral Specialty Diagnoses / Procedures Referred By Jonathanac t Referred To Contact Orthopaedic Surgery Diagnoses Internal derangement of right shoulder Procedures L Inj/Asp: R subacromial bursa Ibeth Fernandez PA [address] [facility] [address] [place] [address] Referral ID Status Reason Start Date Expiration Date V isits Requested Visits Authorized [id number] Authorized 04/26/2024 10/23/2024 1 1 Specialty Diagnoses / Procedures Referred By Contac t Referred To Contact Radiology Diagnoses Internal derangement of right shoulder Procedures MR shoulder right wo IV contrast Ibeth Fernandez PA [address] [place] [address] [facility] [address] [place] [address] Referral ID Status Reason Start Date Expiration Date V isits Requested Visits Authorized [id number] Pending Review 04/26/2024 10/23/2024 1 1 Additional Source Comments INFORMATION SOURCE (unrecogn ized section and content) DATE CREATED AUTHOR 07/11/2018 [facility] DATE CREATED AUTHOR AUTHOR'S ORGANIZ ATION 10/29/2020 [facility] DATE CREATED AUTHOR AUTHOR'S ORGANIZ ATION 09/25/2022 [facility] DATE CREATED AUTHOR AUTHOR'S ORGANIZ ATION 07/20/2024 [facility] DATE CREATED AUTHOR AUTHOR'S ORGANIZ ATION 07/24/2024 [facility] DATE CREATED AUTHOR AUTHOR'S ORGANIZ ATION 09/01/2024 [facility] EPIC Reason for Visit (unrecogniz ed section and content) Reason Comments Med Refill Reason Comments Pre-op Exam No date for weight l oss surgery yet Reason Comments Pain Reason Comments Urinary Tract Infection Reason Comments Pain Reason Comments Med Change Request Reason Comments Post-op Reason Comments Well Women Visit Care Teams (unrecognized sec tion and content) Senior Solutions Architect Relationship Specialty Start Date End Date Jhon Enriquez MD [address] [place] [address], [address] [place] [address] PCP - General Pediatrics 04/02/17 Senior Solutions Architect Relationship Specialty Start Date End Date Jhon Enriquez MD [address] [place] [address], [address] [place] [address] PCP - General 01/18/23 Senior Solutions Architect Relationship Specialty Start Date End Date Jhon Enriquez MD [address] [place] [address], [address] [place] [address] PCP - General Pediatrics 04/02/17 Senior [employer] Relationship Specialty Start Date End Date Jhon Enriquez MD [address] [place] [address], [address] [place] [address] PCP - General Pediatrics 04/02/17 Senior Solutions Architect Relationship Specialty Start Date End Date Jhon Enriquez MD [address] [place] [address], [address] [place] [address] PCP - General 01/18/23 Senior Solutions Architect Relationship Specialty Start Date End Date Jhon Enriquez MD [address] [place] [address], [address] [place] [address] PCP - General 01/18/23 Senior Solutions Architect Relationship Specialty Start Date End Date Jhon Enriquez MD [address] [place] [address], [address] [place] [address] PCP - General Pediatrics 04/02/17 Senior Solutions Architect Relationship Specialty Start Date End Date Jhon Enriquez MD [address] [place] [address], [address] [place] [address] PCP - General 01/18/23 Senior Solutions Architect Relationship Specialty Start Date End Date Jhon Enriquez MD [address] [place] [address], [address] [place] [address] PCP - General 01/18/23 Senior Solutions Architect Relationship Specialty Start Date End Date Jhon Enriquez MD [address] [place] [address], [address] [place] [address] PCP - General Pediatrics 04/02/17 Senior Solutions Architect Relationship Specialty Start Date End Date Jhon Erniquez MD [address] [place] [address], [address] [place] [address] PCP - General 01/18/23 Senior Solutions Architect Relationship Specialty Start Date End Date Jhon Enriquez MD [address] [place] [address], [address] [place] [address] PCP - General 01/18/23 Senior Solutions Architect Relationship Specialty Start Date End Date Jhon Enriquez MD [address] [place] [address], [address] [place] [address] PCP - General 01/18/23 Senior Solutions Architect Relationship Specialty Start Date End Date Jhon Enriquez MD [address] [place] [address], [address] [place] [address] PCP - General 01/18/23 Senior Solutions Architect Relationship Specialty Start Date End Date Jhon Enriquez MD [address] [place] [address], [address] [place] [address] PCP - General 01/18/23 Senior Solutions Architect Relationship Specialty Start Date End Date Jhon Enriquez MD [address] [place] [address], [address] [place] [address] PCP - General 01/18/23 Senior Solutions Architect Relationship Specialty Start Date End Date Jhon Enriquez MD [address] [place] [address], [address] [place] [address] PCP - General 01/18/23 Senior Solutions Architect Relationship Specialty Start Date End Date Jhon Enriquez MD [address] [place] [address], [address] [place] [address] PCP - General 01/18/23 Senior Solutions Architect Relationship Specialty Start Date End Date Jhon Enriquez MD [address] [place] [address], [address] [place] [address] PCP - General 01/18/23 Senior Solutions Architect Relationship Specialty Start Date End Date Jhon Enriquez MD [address] [place] [address], [address] [place] [address] PCP - General 01/18/23 Senior Solutions Architect Relationship Specialty Start Date End Date Jhon Enriquez MD [address] [place] [address], [address] [place] [address] PCP - General 01/18/23 Senior Solutions Architect Relationship Specialty Start Date End Date Jhon Enriquez MD [address] [place] [address], [address] [place] [address] PCP - General 01/18/23 FOR RECORDS PERTAINING TO PATIENTS WHO ARE OR HAVE BEEN ENROLLED IN A CHEMICAL DEPENDENCY/SUBSTANCEABUSE PROGRAM, SOME INFORMATION MAY BE OMITTED. This clinical summary was aggregated from multiple sources. Caution should be exercised in using it in the provision of clinical care. This summary normalizes information from multiple sources, and as a consequence, information in this document may materially change the coding, format and clinical context of patient data. In addition, data may be omitted in some cases. CLINICAL DECISIONS SHOULD BE BASED ON THE PRIMARY CLINICAL RECORDS. [facility] [employer] [facility]. provides no warranty or guarantee of the accuracy or completeness of information in this document.
[2024-09-08 11:08] LABS: Age Gdln ACOG Testing Note (.); HPV Aptima Negative (Negative); IGP, Aptima HPV, rfx 16/18,45 Note (.)
== END 2024-09-04 22:01 | disposition home or self-care (01) ==
LOC: LAB 22:00
PROVIDERS: PCP Internal Medicine; Visit Provider Physician Assistant
DX: Z01.419 Encounter for gynecological examination (general) (routine) without abnormal findings (principal)
CPT/HCPCS: 87624; 88175